=== PATIENT | female | born 1965 | race Two or more races ===

== ENCOUNTER 2019-08-02 11:30 | Emergency (ER) | payer SELFPAY ==
[2019-08-02 11:31] VITALS: BP 172/84; PULSE 84; RESP 16; TEMP 36.6; O2SAT 98; BMI 30.9
--- NOTE | 2019-08-02 11:39 | XRR_ITS ---
PROCEDURE INFORMATION: Exam: XR Left Wrist Exam date and time: 08/02/2019 12:21 PM Age: 54 years old Clinical indication: Injury or trauma; Fall; Initial encounter; Blunt trauma (contusions or hematomas; Wrist; Bilateral; Injury date: 08/02/19; Additional info: Fall, bilat wrist pain TECHNIQUE: Imaging protocol: XR Left wrist. Views: 3 or more views. COMPARISON: No relevant prior studies available. FINDINGS: Bones/joints: Unremarkable negative for acute abnormality Soft tissues: Normal. XR/XR wrist LT min 3V* [id number] IMPRESSION: No acute findings.
--- NOTE | 2019-08-02 11:39 | XRR_ITS ---
PROCEDURE INFORMATION: Exam: XR Right Wrist Exam date and time: 08/02/2019 12:19 PM Age: 54 years old Clinical indication: Injury or trauma; Fall; Initial encounter; Blunt trauma (contusions or hematomas; Wrist; Bilateral; Injury date: 08/02/19; Additional info: Fall bilat wrist pain TECHNIQUE: Imaging protocol: XR Right wrist. Views: 3 or more views. COMPARISON: No relevant prior studies available. FINDINGS: Bones/joints: Negative for acute bony abnormality Soft tissues: Normal. XR/XR wrist RT min 3V* [id number] IMPRESSION: No acute findings.
[2019-08-02 15:21] VITALS: BP 147/77; PULSE 74; O2SAT 100
--- NOTE | 2019-08-03 07:15 | W.ED.EXTPRO ---
HPI - Extremity Problem General: Chief complaint: Extremity Injury, Upper Stated complaint: fell hurt both wrists Time Seen by Provider: 08/02/19 14:26 Source: patient and family Mode of arrival: ambulatory Limitations: no limitations History of Present Illness: HPI Narrative: Patient is a 54-year-old female who presents to ED today with complaints of bilateral wrist pain; patient and significant other state that patient had been having some bilateral wrist pain over the past few days/weeks due to them recently moving into a new home and remodeling doing a lot of painting; patient states the other day she tripped and fell and landed on her arms extended and since then has had increased pain to her bilateral wrists MD Complaint: joint paint Onset (ago): day(s) Pain Consistency: constant Location: left and right Radiation: none Relieving factors: immobilization Exacerbating factors: range of motion Associated symptoms: Reports no associated symptoms Review of Systems Musc: Reports: joint pain (bilateral wrists); Denies: neck pain or back pain PFSH ED PFSH: Statuses (acute, chronic, etc) shown below reflect problem list status as previously entered and may not be historically accurate Social History Smoking and tobacco status: former smoker Physical Exam Const: COMMON NORMALS: no apparent distress, average body habitus, oriented x3, healthy appearing, alert and well nourished Extremity: OTHER: TTP of bilateral wrists; can flex/ext/deviate but with pain; NV intact; no deformities noted; no tenderness to hands/forearms Neuro: COMMON NORMALS: oriented x3, no focal motor deficits and no sensory deficits noted SENSORIUM/ORIENTATION: Yes alert Course Vital Signs: Vital signs: Vital Signs Temperature 97.9 F 08/02/19 11:31 Pulse Rate 74 08/02/19 15:21 Respiratory Rate 16 08/02/19 11:31 Blood Pressure 147/77 08/02/19 15:21 Pulse Oximetry 100 08/02/19 15:21 MDM - Extremity (Nontraumatic) Imaging Data^: R wrist : Radiologist's impression: [address] [address] XRay Report Signed Patient: Soco Carpenter Unit #: [id number] : 1965 Age/Sex: 54 / F ADM Date: 08/02/19 Loc: ER Room/Bed: Attending Dr: Ordering Provider/Ordering MD: Emiliano Welsh DO Date of Service: 08/02/19 Procedure(s): XR wrist RT min 3V* [id number] Accession Number(s): [id number] Report Number: [id number] PROCEDURE INFORMATION: Exam: XR Right Wrist Exam date and time: 08/02/2019 12:19 PM Age: 54 years old Clinical indication: Injury or trauma; Fall; Initial encounter; Blunt trauma (contusions or hematomas; Wrist; Bilateral; Injury date: 08/02/19; Additional info: Fall bilat wrist pain TECHNIQUE: Imaging protocol: XR Right wrist. Views: 3 or more views. COMPARISON: No relevant prior studies available. FINDINGS: Bones/joints: Negative for acute bony abnormality Soft tissues: Normal. XR/XR wrist RT min 3V* [id number] IMPRESSION: No acute findings. Dictated By: Brendon Lee Signed By: Brendon Lee Signed Date/Time: 08/02/19 1312 DD/ 1312 L wrist: Radiologist's impression: [place] [address] XRay Report Signed Patient: Soco Carpenter Unit #: [id number] : 1965 Age/Sex: 54 / F ADM Date: 08/02/19 Loc: ER Room/Bed: Attending Dr: Ordering Provider/Ordering MD: Emiliano Welsh DO Date of Service: 08/02/19 Procedure(s): XR wrist LT min 3V* 18547 Accession Number(s): [id number] Report Number: [id number] PROCEDURE INFORMATION: Exam: XR Left Wrist Exam date and time: 08/02/2019 12:21 PM Age: 54 years old Clinical indication: Injury or trauma; Fall; Initial encounter; Blunt trauma (contusions or hematomas; Wrist; Bilateral; Injury date: 08/02/19; Additional info: Fall, bilat wrist pain TECHNIQUE: Imaging protocol: XR Left wrist. Views: 3 or more views. COMPARISON: No relevant prior studies available. FINDINGS: Bones/joints: Unremarkable negative for acute abnormality Soft tissues: Normal. XR/XR wrist LT min 3V* [id number] IMPRESSION: No acute findings. Dictated By: Brendon Lee Signed By: Brendon Lee Signed Date/Time: 08/02/193 DD/ 131 Discharge Plan Discharge Patient Disposition: Home, Self-Care Clinical Impression: Sprain and strain of wrist Condition: Stable Prescriptions: New ibuprofen 600 mg tablet 600 mg PO Q8H PRN (Reason: pain) Qty: 20 RF: 0 Discharge Orders: Discharge Order (Routine); Ordered 08/02/19 Ordered By: Leonila Plasencia Discharge Activity: Increase activity as tolerated Activity Restrictions/Additional Instructions: Follow up with primary care in 1 wk for continued pain. Discharge Date/Time: 08/02/19 15:23 Coding Level of Care Code ED Air Brush Decorator for Lexi Vazquez Exam Problem Focused
== END 2019-08-02 15:23 | disposition home or self-care (01) ==
LOC: ER 15:16
PROVIDERS: Emergency Provider Physician Assistant
DX: S63.509A Unspecified sprain of unspecified wrist, initial encounter (principal); S66.919A Strain of unspecified muscle, fascia and tendon at wrist and hand level, unspecified hand, initial encounter; W01.0XXA Fall on same level from slipping, tripping and stumbling without subsequent striking against object, initial encounter; Z87.891 Personal history of nicotine dependence
CPT/HCPCS: 73110; 99281; 99283

== ENCOUNTER 2020-01-07 09:40 | Inpatient (IN) | payer SELFPAY ==
[2020-01-07] VITALS (8 sets, daily range): BP systolic 144–171; BP diastolic 75–97; PULSE 71–103; RESP 16–22; TEMP 36.6–37.3; O2SAT 95–98; BMI 28.9
--- NOTE | 2020-01-07 10:03 | USR_ITS ---
PROCEDURE INFORMATION: Exam: US Abdomen Limited, Right Upper Quadrant Exam date and time: 01/07/2020 10:53 AM Age: 54 years old Clinical indication: Abdominal pain; Epigastric; Additional info: Abd pain TECHNIQUE: Imaging protocol: Real-time ultrasound of the abdomen with image documentation. Examination was focused on the right upper quadrant. COMPARISON: CT abdomen pelvis w con* [id number] 01/07/2020 10:20 AM FINDINGS: Liver: Diffuse fatty infiltration of the liver. Gallbladder: No cholelithiasis, gallbladder wall edema, or pericholecystic fluid. An equivocal Callaway sign was reported by the scanning technologist. Common bile duct: Normal caliber of the visualized common bile duct measuring 2 mm in diameter. Pancreas: Obscuration of the pancreas by bowel gas. Right kidney: Normal renal morphology. No hydronephrosis. US/US gall bladder [id number] IMPRESSION: Diffuse fatty infiltration of the liver.
--- NOTE | 2020-01-07 10:03 | CTR_ITS ---
PROCEDURE INFORMATION: Exam: CT Abdomen And Pelvis With Contrast Exam date and time: 01/07/2020 10:13 AM Age: 54 years old Clinical indication: Abdominal pain; Additional info: Abd pain TECHNIQUE: Imaging protocol: Computed tomography of the abdomen and pelvis with intravenous contrast. Radiation optimization: All CT scans at this facility use at least one of these dose optimization techniques: automated exposure control; mA and/or kV adjustment per patient size (includes targeted exams where dose is matched to clinical indication); or iterative reconstruction. Contrast material: OMNI 300; Contrast volume: 95 ml; Contrast route: INTRAVENOUS (IV); COMPARISON: No relevant prior studies available. FINDINGS: Pleural space: Interstitial prominence without acute airspace or pleural disease. Liver: Fatty infiltration of the liver. Gallbladder and bile ducts: No cholelithiasis or biliary ductal dilatation. Pancreas: Subtle infiltration of peripancreatic fat, suggesting pancreatitis. Correlation with pancreatic enzymes is recommended. No pancreatic ductal dilatation. Spleen: No splenomegaly. 8 mm accessory spleen. Adrenals: Unremarkable adrenals. Kidneys and ureters: Normal renal morphology. No hydronephrosis. Stomach and bowel: Mild gastric and jejunal wall thickening, consistent with gastroenteritis in the appropriate clinical setting. Prominent stool and diverticula. No pericolonic inflammation. Appendix: No acute appendicitis. Intraperitoneal space: No significant free fluid. Vasculature: Vascular calcification and atherosclerotic plaque. Normal caliber of the abdominal aorta. Lymph nodes: Subcentimeter lymph nodes. Bladder: Nondistended bladder. Reproductive: Unremarkable as visualized. Bones/joints: Mild degenerative change and disc bulging. Soft tissues: Calcification at the gluteal muscle attachment sites. CT/CT abdomen pelvis w con* [id number] IMPRESSION: 1. Subtle infiltration of peripancreatic fat, suggesting pancreatitis. Correlation with pancreatic enzymes is recommended. 2. Mild gastric and jejunal wall thickening, consistent with gastroenteritis in the appropriate clinical setting. 3. Additional findings as described above. Radiation Dose CTDIVOL = (mGy): DLP = 1096.83 (mGy-cm)
[2020-01-07 10:13] LABS: Basophils # 0.1 10^3/uL (0.0-0.1); Basophils % 0.4 %; Eosinophils # 0.1 10^3/uL (0.0-0.8); Eosinophils % 0.8 %; Hematocrit 47.7 % (37.0-47.0); Hemoglobin 15.9 g/dL (11.5-15.3); Lymphocytes # 4.7 10^3/uL (0.8-4.8); Lymphocytes % 29.8 %; Mean Corpuscular HGB Conc 33.3 g/dL (30.0-36.0); Mean Corpuscular Hemoglobin 28.8 pg (28.0-34.0); Mean Corpuscular Volume 86.3 fL (81-99); Mean Platelet Volume 9.2 fL (7.4-10.4); Monocytes % 6.1 %; Neutrophils # 9.9 10^3/uL (1.8-7.7); Neutrophils % 62.6 %; Nucleated Red Blood Cells % 0 %; Platelet Count 499 10^3/cmm (130-400); Red Blood Count 5.53 10^6/uL (4.1-5.3); Red Cell Distribution Width 12.7 % (12.1-15.1); White Blood Count 15.9 10^3/uL (4.0-10.0)
[2020-01-07] MEDS: iohexol 300 mg/mL 100 mL Btl 95 ML IV (10:28)
[2020-01-07 10:33] LABS: Alanine Aminotransferase 15 U/L (0-33); Albumin Level 4.9 g/dL (3.5-5.2); Alkaline Phosphatase 105 IU/L (35-105); Anion Gap 20.3 (5-19); Aspartate Amino Transferase 16 U/L (0-32); Blood Urea Nitrogen 12 mg/dL (6-20); Calcium 9.9 mg/dL (8.5-10.5); Carbon Dioxide 23 mmol/L (22-29); Chloride 94 mmol/L (98-107); Globulin 3.4 g/dL (1.3-4.6); Glomerular Filtration Rate 128.6 mL/min (90-130); Glucose 201 mg/dL (65-115); Osmolality Calculated 278 mOsm/kg (285-295); Potassium 4.3 mmol/L (3.5-5.1); Sodium 133 mmol/L (136-145); Total Bilirubin 1.4 mg/dL (0.15-1.2); Total Protein 8.3 g/dL (6.6-8.7)
[2020-01-07 10:36] LABS: Lactate (Lactic Acid level) 1.6 mmol/L (0.5-2.2)
--- NOTE | 2020-01-07 11:03 | W.ED.ABDPA2 ---
HPI - Abdominal Pain General: Chief Complaint: Abdominal Pain Stated Complaint: ABD PAIN Time Seen by Provider: 01/07/20 09:51 History of Present Illness: HPI narrative: Right upper quadrant abdominal pain started last night. Patient is very anxious because her brother had recently had that have gallbladder surgery. Patient has nausea with one episode of vomiting. No diarrhea or fevers reported. MD elicited complaint: abdominal pain Pertinent past history: none Onset (ago): day(s) Pain Consistency: constant Location: RUQ Severity: severe Quality: cramping, stabbing, aching and sharp Radiation: none Relieving factors: nothing PFSH ED PFSH: Social History Smoking and tobacco status: never smoked Course Vital Signs: Vital signs: Vital Signs Temperature 98.3 F 01/07/20 09:56 Pulse Rate 103 H 01/07/20 09:56 Respiratory Rate 22 H 01/07/20 09:56 Blood Pressure 171/97 01/07/20 09:56 Pulse Oximetry 95 01/07/20 09:56 MDM - Abdominal Pain Lab Data: Labs: Lab Results 01/07/20 01/07/20 01/07/20 Range/Units 10:07 10:07 10:07 WBC 15.9 H (4.0-10.0) 10^3/ uL RBC 5.53 H (4.1-5.3) 10^6/u L Hgb 15.9 H (11.5-15.3) g/dL Hct 47.7 H (37.0-47.0) % MCV 86.3 (81-99) fL MCH 28.8 (28.0-34.0) pg MCHC 33.3 (30.0-36.0) g/dL RDW 12.7 (12.1-15.1) % Plt Count 499 H (130-400) 10^3/c mm MPV 9.2 (7.4-10.4) fL Neut % (Auto) 62.6 % Lymph % (Auto) 29.8 % [place] % (Auto) 6.1 % Eos % (Auto) 0.8 % Baso % (Auto) 0.4 % Neut # (Auto) 9.9 H (1.8-7.7) 10^3/u L Lymph # (Auto) 4.7 (0.8-4.8) 10^3/u L [place] # (Auto) 1.0 H (0.2-0.9) 10^3/u L Eos # (Auto) 0.1 (0.0-0.8) 10^3/u L Baso # (Auto) 0.1 (0.0-0.1) 10^3/u L Nucleated RBC % (a uto) 0 % Nucleated RBCs # 0.0 /100WBC Sodium 133 L (136-145) mmol/L Potassium 4.3 (3.5-5.1) mmol/L Chloride 94 L (98-107) mmol/L Carbon Dioxide 23 (22-29) mmol/L Anion Gap 20.3 H (5-19) BUN 12 (6-20) mg/dL Creatinine 0.5 (0.5-0.9) mg/dL GFR Calculation 128.6 (90-130) mL/min Glucose 201 H (65-115) mg/dL Calculated Osmolal ity 278 L (285-295) mOsm/k g Lactate (0.5-2.2) mmol/L Calcium 9.9 (8.5-10.5) mg/dL Total Bilirubin 1.4 H (0.15-1.2) mg/dL AST 16 (0-32) U/L ALT 15 (0-33) U/L Alkaline Phosphata se 105 (35-105) IU/L Total Protein 8.3 (6.6-8.7) g/dL Albumin 4.9 (3.5-5.2) g/dL Globulin 3.4 (1.3-4.6) g/dL Triglycerides 151 H (0-150) mg/dL Lipase 361 H (13-60) U/L Urine Color (Yellow) Urine Appearance (CLEAR) Urine pH (5-7) Ur Specific Gravit y (1.005-1.030) Urine Protein (Negative) Urine Glucose (UA) (Normal) Urine Ketones (Negative) Urine Blood (Negative) Urine Nitrate (Negative) Urine Bilirubin (NEGATIVE) Urine Urobilinogen (Negative) mg/dL Ur Leukocyte Rosibel ase (Negative) Urine RBC (0-2) /hpf Urine WBC (0-5) /hpf Ur Squamous Epith Cells (0-5) Urine Bacteria (NONE) Urine Mucus 06/21/20 06/21/20 Range/Units 10:08 10:15 WBC (4.0-10.0) 10^3/ uL RBC (4.1-5.3) 10^6/u L Hgb (11.5-15.3) g/dL Hct (37.0-47.0) % MCV (81-99) fL MCH (28.0-34.0) pg MCHC (30.0-36.0) g/dL RDW (12.1-15.1) % Plt Count (130-400) 10^3/c mm MPV (7.4-10.4) fL Neut % (Auto) % Lymph % (Auto) % [place] % (Auto) % Eos % (Auto) % Baso % (Auto) % Neut # (Auto) (1.8-7.7) 10^3/u L Lymph # (Auto) (0.8-4.8) 10^3/u L [place] # (Auto) (0.2-0.9) 10^3/u L Eos # (Auto) (0.0-0.8) 10^3/u L Baso # (Auto) (0.0-0.1) 10^3/u L Nucleated RBC % (a uto) % Nucleated RBCs # /100WBC Sodium (136-145) mmol/L Potassium (3.5-5.1) mmol/L Chloride (98-107) mmol/L Carbon Dioxide (22-29) mmol/L Anion Gap (5-19) BUN (6-20) mg/dL Creatinine (0.5-0.9) mg/dL GFR Calculation (90-130) mL/min Glucose (65-115) mg/dL Calculated Osmolal ity (285-295) mOsm/k g Lactate 1.6 (0.5-2.2) mmol/L Calcium (8.5-10.5) mg/dL Total Bilirubin (0.15-1.2) mg/dL AST (0-32) U/L ALT (0-33) U/L Alkaline Phosphata se (35-105) IU/L Total Protein (6.6-8.7) g/dL Albumin (3.5-5.2) g/dL Globulin (1.3-4.6) g/dL Triglycerides (0-150) mg/dL Lipase (13-60) U/L Urine Color Dark yellow (Yellow) Urine Appearance Clear (CLEAR) Urine pH 5 (5-7) Ur Specific Gravit y 1.025 (1.005-1.030) Urine Protein Trace (Negative) Urine Glucose (UA) Trace H (Normal) Urine Ketones 1+ H (Negative) Urine Blood Neg (Negative) Urine Nitrate Negative (Negative) Urine Bilirubin 1+ H (NEGATIVE) Urine Urobilinogen 4 H (Negative) mg/dL Ur Leukocyte Rosibel ase Trace H (Negative) Urine RBC None (0-2) /hpf Urine WBC 5-10 H (0-5) /hpf Ur Squamous Epith Cells 0-4 H (0-5) Urine Bacteria Trace (NONE) Urine Mucus Trace Discharge Plan Discharge Prescriptions: No Action Multiple Vitamin, Womens Tablet 1 tab PO DAILY RF: 0 glipizide See Rx Instructions .ROUTE .COMPLEX RF: 0 metformin See Rx Instructions .ROUTE .COMPLEX RF: 0 Coding Level of Care Code ED Business Analyst Consultant for Lexi Vazquez
[2020-01-07 11:04] LABS: Lipase 361 U/L (13-60)
[2020-01-07 11:07] LABS: Add Urine Microscopic? YES; Bilirubin Urine 1+ (NEGATIVE); Blood Urine Neg (Negative); Glucose Urine UA Trace (Normal); Ketones Urine 1+ (Negative); Leukocyte Esterase Urine Trace (Negative); Nitrate Urine Negative (Negative); Protein Urine Trace (Negative); Specific Gravity, Urine 1.025 (1.005-1.030); Urine Appearance Clear (CLEAR); Urine Color Dark Yellow (Yellow); Urobilinogen Urine 4 mg/dL (Negative); pH Urine 5 (5-7)
[2020-01-07 11:08] LABS: Add Urine Culture? No; Bacteria Urine TRACE; Mucus Urine TRACE; Squamous Epithelial Cell Urine 0-4 (0-5)
--- NOTE | 2020-01-07 11:28 | PC.NURSE ---
REad and agree with assessment
[2020-01-07] MEDS: LORazepam 1 mg Tablet PO (11:56)
[2020-01-07 12:15] LABS: Triglycerides 151 mg/dL (0-150)
[2020-01-07] MEDS: morphine 4 mg/mL SDV 1 mL 2 MG IVP ×2 (13:57→20:15)
[2020-01-07] MEDS: sodium chloride 0.9% 1,000 ML 150 ML IV ×2 (13:58→21:02)
--- NOTE | 2020-01-07 14:24 | P.HP_ITS ---
Providers/Chief Complaint Admitting Physician: Anita Matta MD Chief Complaint: ABD PAIN History of Present Illness Soco Carpenter is a 54 year old female complaining of abdominal pain. Patient states she was in her usual state of health until Wednesday morning when she started to experience epigastric abdominal pain. She does not remember any inciting cause just prior. States pain was 10 out of 10, then somewhat relieved with massage and application of hot packs on her abdomen. She initially attributed this to musculoskeletal pain that she developed from raking leaves earlier that morning. However over the course of Wednesday and now she developed intense nausea and had one episode of vomiting. She held off on coming because she thought it was something she ate that may have precipitated her symptoms, however as of this morning the intensity and frequency got much worse and she decided to present to the ER for further evaluation. In the ER diagnostics are notable for leukocytosis with white blood cell count of 15.9. BUN/creatinine within range, T bili of 1.4 with normal AST ALT alkaline phosphatase. Lipase is at 361. Triglycerides 151. Abdomen pelvis CT shows subtle infiltration of peripancreatic fat suggestive of pancreatitis. There is mild gastric and jejunal wall thickening consistent with leidy roenteritis. No cholelithiasis or biliary duct dilatation are seen. There is noted to be fatty infiltration of the liver. There is also prominent stool in the diverticula without pericolonic inflammation. Patient does report constipation starting Wednesday, no history of diarrheal bowel movements. Gallbladder ultrasound additionally performed in the ER is negative for cholelithiasis GB wall edema or pericholecystic fluid. Diffuse fatty infiltration of the liver was noted. Per patient her other recent history is notable for a poison jaime rash that she developed about a month ago and reports being on an extended course of antibiotics for cellulitis involving bilateral arms. She is unable to tell me what antibiotic this was. We will try to obtain this information from her pharmacy or PCPs office tomorrow. As a result of antibiotics she developed Elisa infection in her groin folds and underneath the breasts for which she was on nystatin powder. This has now cleared up. Other past history is notable for diabetes mellitus for which she has been taking metformin and glipizide over the past month, newly started. She does not know her last HbA1c. She reports multiple episodes of elevated blood pressure during her doctor's visit which he attributes to white coat hypertension. At home she states her blood pressure is usually normal less than 140 systolic. No h/o cardiac disease There is no complaint of fever. No h/o alcohol intake. No herbal supplements Review of Systems General: Reports: 10 or more systems reviewed and unremarkable except in HPI and below Const: Denies: fever(s), chills or body aches Eyes: Denies: change in vision, blurry vision or photophobia ENMT: Denies: throat pain, enlarged tonsils, odynophagia, hoarseness or nasal congestion Card: Denies: chest pain, palpitations, irregular heart rhythm, edema, swelling of feet/ankles, lightheadedness, pre-syncope, dyspnea on exertion or orthopnea Resp: Denies: dyspnea, productive cough, non-productive cough, wheezing, stridor, pain on inspiration, change in phlegm color, hemoptysis or chest congestion GI: Reports: abdominal pain, nausea, vomiting and constipation; Denies: hematemesis, coffee ground emesis, dysphagia, heartburn, diarrhea, GI cramping, change in stool character, hematochezia or melena : Denies: flank pain, difficulty voiding, dysuria, urinary frequency, urinary urgency, urinary hesitancy or hematuria Musc: Denies: neck pain, back pain, extremity pain, joint swelling, joint warmth or deformity Neuro: Denies: headache(s), numbness in extremities, weakness in extremities, sensory changes, difficulty walking, frequent falls, dizziness, vertigo, behavioral changes, Slurred speech present or seizure-like activity Psych: Denies: anxiety, depression, suicidal ideation or homicidal ideation Endo: Denies: polyuria, polydipsia, tired all the time, cold intolerance or hot flashes Antwon/Lymph: Denies: easy bruising or easy bleeding Medications/Allergies Home Medications Medication Instructions Recorded Confirmed Last Taken Type glipizide See Rx Instructions .ROUTE .COMPLEX 01/07/20 01/07/20 01/05/20 History metformin See Rx Instructions .ROUTE .COMPLEX 01/07/20 01/07/20 01/05/20 History wipectxxnlrb-Cn-jywm-minerals 1 tab PO DAILY 01/07/20 01/07/20 01/05/20 History [Multiple Vitamin, Womens] Allergies Allergy/AdvReac Type Severity Reaction Status Date / Time adhesive tape Allergy ALGY-Rash Verified 01/07/20 10:59 PFSH Acute PFSH: Medical History (Updated 01/07/20 @ 14:35 by Anita Matta MD) Cellulitis Diabetes mellitus Poison jaime dermatitis Social History Smoking and tobacco status: never smoked Vitals/I&O/Wt Last Vital Signs Temp 98.3 F 01/07/20 09:56 Pulse 80 01/07/20 13:05 Resp 18 01/07/20 13:57 BP 154/75 01/07/20 13:05 Pulse Ox 98 01/07/20 13:05 Weight last 48 hrs Weight 71.668 kg Physical Exam Narrative: EXAM NARRATIVE: GEN: Awake, alert and oriented, no acute distress HEENT: NC/AT CVS: S1S2 N RS: CTA B/L Abd: Soft, nondistended, mild tenderness to palpation in the epigastric and right upper quadrant areas. No rebound or guarding. METER SUPERVISOR: no focal neuro deficits Extremities: Hyperkeratotic skin changes in bilateral groin folds and underneath the breast consistent with recently treated intertrigo. Data : 01/07/20 10:07 01/07/20 10:07 A&P Assessment and plan (1) Acute pancreatitis: Status: Acute Qualifiers: Pancreatitis type: idiopathic Acute pancreatitis complication: no infection or necrosis Qualified Code(s): K85.00 - Idiopathic acute pancreatitis without necrosis or infection (2) Diabetes mellitus: Status: Acute Qualifiers: Diabetes mellitus type: type 2 Diabetes mellitus primer powder blender wet insulin use: without primer powder blender wet use Diabetes mellitus complication status: without complication Qualified Code(s): E11.9 - Type 2 diabetes mellitus without complications (3) Leukocytosis: Status: Acute Qualifiers: Leukocytosis type: unspecified Qualified Code(s): D72.829 - Elevated white blood cell count, unspecified (4) Dehydration: Status: Acute Additional A&P Information Admit to [facility]. 1. Acute pancreatitis. Pancreatitis as evidenced by CT findings of peripancreatic fat inflammation with possible reactive duodenitis and gastritis. Lipase elevated at 361. Cause of pancreatitis not entirely clear. Right upper quadrant ultrasound and CT did not detect any cholelithiasis or biliary dilatation. LFTs are normal except for mildly elevated T bili of 1.4. Triglycerides are within normal limits at 151. Calcium levels are also within normal range, albeit on the higher side. Will check TSH. Will obtain records from her PCP or pharmacy to check what antibiotic she received recently. Pancreatic necrosis not on recent CT. Leukocytosis noted. Suspect that this is related to dehydration, likely to improve with volume expansion. For now given that patient is afebrile we will hold off on any empiric antibiotics. We will however check blood cultures. In case of any fevers will start broad-spectrum antibiotics. Continue IV fluids at 150 cc/h. PRN morphine for pain control Clear liquid diet for now 2. Diabetes mellitus: Currently on insulin sliding scale. 3. Recent posion jaime dermatitis, currently resolved DVT prophylaxis with Lovenox Full code Attestations Medical Necessity Statement*: Needs inpatient admission, anticipate greater than 2 days for management of acute pancreatitis, IV hydration, pain management Coding Level of Care Code Acute Maintainability Engineer for [facility] Diagnoses Acute pancreatitis K85.00 Pancreatitis type: idiopathic Acute pancreatitis complication: no infection or necrosis Diabetes mellitus E11.9 Diabetes mellitus type: type 2 Diabetes mellitus long-term insulin use: without long-term use Diabetes mellitus complication status: without complication Leukocytosis D72.829 Leukocytosis type: unspecified Dehydration E86.0
[2020-01-07] MEDS: ketorolac 30 mg/mL INJ 15 MG IVP ×2 (16:03→23:53)
[2020-01-07] MEDS: enoxaparin 40 mg/0.4 mL Syringe SUBCUT (16:04)
[2020-01-07 17:48] LABS: Glucose Point of Care 202 mg/dL (70-110)
[2020-01-07 20:39] LABS: Glucose Point of Care 197 mg/dL (70-110)
[2020-01-08] VITALS (9 sets, daily range): BP systolic 111–168; BP diastolic 68–84; PULSE 68–81; RESP 16–18; TEMP 36.4–37.1; O2SAT 94–98
[2020-01-08] MEDS: morphine 4 mg/mL SDV 1 mL 2 MG IVP ×4 (00:26→19:54)
[2020-01-08] MEDS: sodium chloride 0.9% 1,000 ML 150 ML IV ×3 (03:34→19:49)
[2020-01-08] MEDS: trazodone 50 mg Tablet PO (04:05)
[2020-01-08 04:54] LABS: Estmated Average Glucose 278; Hemoglobin A1C 11.3 % (4.0-6.0)
[2020-01-08 05:34] LABS: Alanine Aminotransferase 12 U/L (0-33); Albumin Level 3.8 g/dL (3.5-5.2); Alkaline Phosphatase 85 IU/L (35-105); Anion Gap 15.8 (5-19); Aspartate Amino Transferase 14 U/L (0-32); Blood Urea Nitrogen 11 mg/dL (6-20); Calcium 8.8 mg/dL (8.5-10.5); Carbon Dioxide 23 mmol/L (22-29); Chloride 105 mmol/L (98-107); Globulin 2.6 g/dL (1.3-4.6); Glomerular Filtration Rate 128.6 mL/min (90-130); Glucose 157 mg/dL (65-115); Magnesium 1.9 mg/dL (1.7-2.3); Osmolality Calculated 287 mOsm/kg (285-295); Potassium 4.8 mmol/L (3.5-5.1); Sodium 139 mmol/L (136-145); Total Bilirubin 0.9 mg/dL (0.15-1.2); Total Protein 6.4 g/dL (6.6-8.7)
[2020-01-08 05:44] LABS: Thyroid Stimulating Hormone 4.68 uIU/mL (0.27-4.20)
[2020-01-08 06:56] LABS: Glucose Point of Care 152 mg/dL (70-110)
[2020-01-08 07:24] LABS: Basophils # 0.1 10^3/uL (0.0-0.1); Basophils % 0.5 %; Eosinophils # 0.2 10^3/uL (0.0-0.8); Eosinophils % 1.8 %; Hematocrit 41.2 % (37.0-47.0); Hemoglobin 13.5 g/dL (11.5-15.3); Lymphocytes # 4.3 10^3/uL (0.8-4.8); Lymphocytes % 32.8 %; Mean Corpuscular HGB Conc 32.8 g/dL (30.0-36.0); Mean Corpuscular Hemoglobin 28.5 pg (28.0-34.0); Mean Corpuscular Volume 86.9 fL (81-99); Mean Platelet Volume 9.8 fL (7.4-10.4); Monocytes % 7.7 %; Neutrophils # 7.5 10^3/uL (1.8-7.7); Nucleated Red Blood Cells % 0 %; Platelet Count 427 10^3/cmm (130-400); Red Blood Count 4.74 10^6/uL (4.1-5.3); Red Cell Distribution Width 12.7 % (12.1-15.1); White Blood Count 13.1 10^3/uL (4.0-10.0)
[2020-01-08] MEDS: ketorolac 30 mg/mL INJ 15 MG IVP ×2 (07:39→16:43)
[2020-01-08 11:40] LABS: Glucose Point of Care 223 mg/dL (70-110)
--- NOTE | 2020-01-08 13:13 | P.PN_ITS ---
Subjective Subjective: Interval history: This morning patient states that her abdominal pain is minimal, would like to try to eat something more substantial, she stated that she had a tough night was unable to sleep due to her roommate, currently doing well, afebrile, denies drinking alcohol use, no recent oral steroid use, was given topical steroids and fluconazole for poison jaime, and topical candidiasis, did have trauma to her abdomen when she fell through the floor which was roughly 2 weeks ago Vitals/I&O/Wt Last Vital Signs Temp 98.7 F 01/08/20 11:02 Pulse 70 01/08/20 11:02 Resp 16 01/08/20 11:02 BP 143/68 01/08/20 11:02 Pulse Ox 94 01/08/20 11:02 01/07/20 01/08/20 01/08/20 22:59 06:59 14:59 Intake Total 1360 / 1360 980 / 2340 1480 / 1480 Output Total 600 / 600 450 / 1050 Balance 760 / 760 530 / 1290 1480 / 1480 Weight last 48 hrs Weight 71.668 kg Physical Exam Const: COMMON NORMALS: no acute distress and patient oriented x3 HENMT: COMMON NORMALS: normocephalic HEAD & SCALP: normocephalic Neck/C-Spine: COMMON NORMALS: no JVD Resp: COMMON NORMALS: normal respiratory effort, No retractions, No use of accessory muscles and clear to auscultation bilaterally AUSCULTATION: clear to auscultation bilaterally Cardio: COMMON NORMALS: no JVD, regular rate, regular rhythm, S1 normal heart sound present and S2 normal heart sound present RATE: regular rate RHYTHM: regular rhythm HEART SOUNDS: S1 normal heart sound present and S2 normal hear t sound present GI: COMMON NORMALS: Normal to inspection, nondistended, normoactive bowel sounds present, Soft to palpation, non-tender, No hepatosplenomegaly present, no masses and no bruits PALPATION: Yes Soft to palpation and Yes No hepatosplenomegaly present Extremity: COMMON NORMALS: capillary refill normal, no clubbing, cyanosis or edema, no calf tenderness and no pedal edema Neuro: COMMON NORMALS: patient oriented x3 Psych: COMMON NORMALS: mental status grossly normal Data : 01/08/20 03:59 01/08/20 03:59 A&P Assessment and plan (1) Acute pancreatitis: Status: Acute Qualifiers: Pancreatitis type: idiopathic Acute pancreatitis complication: no infection or necrosis Qualified Code(s): K85.00 - Idiopathic acute pancreatitis without necrosis or infection (2) Diabetes mellitus: -Hemoglobin A1c 11.3, episodes of candidiasis, indicating poorly controlled type 2 diabetes mellitus -Continue home metformin and glipizide on discharge -She is insulin na?ve, insulin requirements for the last 24 hours have been 10 units -We will likely have patient follow-up with outpatient physician for starting insulin Status: Acute Qualifiers: Diabetes mellitus type: type 2 Diabetes mellitus [facility] use: without [facility] use Diabetes mellitus complication status: without complication Qualified Code(s): E11.9 - Type 2 diabetes mellitus without complications (3) Leukocytosis: Status: Acute Qualifiers: Leukocytosis type: unspecified Qualified Code(s): D72.829 - Elevated white blood cell count, unspecified (4) Dehydration: Status: Acute Additional A&P Information Admit to [facility]. 1. Acute pancreatitis. -Possibly related to trauma -No evidence of gallstones on ultrasound Pancreatitis as evidenced by CT findings of peripancreatic fat inflammation with possible reactive duodenitis and gastritis. Lipase elevated at 361. Cause of pancreatitis not entirely clear. Right upper quadrant ultrasound and CT did not detect any cholelithiasis or biliary dilatation. LFTs are normal except for mildly elevated T bili of 1.4. Triglycerides are within normal limits at 151. Calcium levels are also within normal range, albeit on the higher side. Pancreatic necrosis not on recent CT. Leukocytosis noted. Suspect that this is related to dehydration, likely to improve with volume expansion. For now given that patient is afebrile we will hold off on any empiric antibiotics. We will however check blood cultures. In case of any fevers will start broad-spectrum antibiotics. Continue IV fluids at 100 cc an hour, will try a GI soft diet Likely discharge 4 hours 2. Diabetes mellitus: Currently on insulin sliding scale. 3. 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
[2020-01-08 17:27] LABS: Glucose Point of Care 200 mg/dL (70-110); Glucose Point of Care 216 mg/dL (70-110)
[2020-01-08] MEDS: enoxaparin 40 mg/0.4 mL Syringe SUBCUT (17:52)
[2020-01-08 20:46] LABS: Glucose Point of Care 151 mg/dL (70-110)
[2020-01-09] VITALS (8 sets, daily range): BP systolic 126–172; BP diastolic 72–98; PULSE 59–82; RESP 16–20; TEMP 36.5–37.1; O2SAT 97–98
[2020-01-09] MEDS: morphine 4 mg/mL SDV 1 mL 2 MG IVP (00:28)
[2020-01-09] MEDS: sodium chloride 0.9% 1,000 ML 150 ML IV ×2 (01:50→09:10)
[2020-01-09] MEDS: acetaminophen 325 mg Tablet 650 MG PO (01:50)
[2020-01-09] MEDS: ketorolac 30 mg/mL INJ 15 MG IVP ×2 (04:40→21:27)
[2020-01-09 05:30] LABS: Basophils % 0.3 %; Eosinophils # 0.2 10^3/uL (0.0-0.8); Hematocrit 40.7 % (37.0-47.0); Hemoglobin 13.5 g/dL (11.5-15.3); Lymphocytes # 4.7 10^3/uL (0.8-4.8); Lymphocytes % 39.7 %; Mean Corpuscular HGB Conc 33.2 g/dL (30.0-36.0); Mean Corpuscular Hemoglobin 28.8 pg (28.0-34.0); Mean Corpuscular Volume 86.8 fL (81-99); Mean Platelet Volume 9.6 fL (7.4-10.4); Monocytes # 0.8 10^3/uL (0.2-0.9); Monocytes % 6.7 %; Nucleated Red Blood Cells % 0 %; Platelet Count 426 10^3/cmm (130-400); Red Blood Count 4.69 10^6/uL (4.1-5.3); Red Cell Distribution Width 12.4 % (12.1-15.1); White Blood Count 11.8 10^3/uL (4.0-10.0)
[2020-01-09 05:46] LABS: Lipase 172 U/L (13-60)
[2020-01-09 05:47] LABS: Alanine Aminotransferase 13 U/L (0-33); Albumin Level 3.8 g/dL (3.5-5.2); Alkaline Phosphatase 91 IU/L (35-105); Anion Gap 14.8 (5-19); Aspartate Amino Transferase 15 U/L (0-32); Blood Urea Nitrogen 6 mg/dL (6-20); Calcium 8.7 mg/dL (8.5-10.5); Carbon Dioxide 25 mmol/L (22-29); Chloride 101 mmol/L (98-107); Creatinine Clr Calc Pharmacy 149.0611; Globulin 3.4 g/dL (1.3-4.6); Glomerular Filtration Rate 166.3 mL/min (90-130); Glucose 146 mg/dL (65-115); Magnesium 1.9 mg/dL (1.7-2.3); Osmolality Calculated 282 mOsm/kg (285-295); Potassium 3.8 mmol/L (3.5-5.1); Sodium 137 mmol/L (136-145); Total Bilirubin 0.5 mg/dL (0.15-1.2); Total Protein 7.2 g/dL (6.6-8.7)
[2020-01-09 06:16] LABS: Glucose Point of Care 144 mg/dL (70-110)
[2020-01-09 11:46] LABS: Glucose Point of Care 122 mg/dL (70-110)
--- NOTE | 2020-01-09 12:25 | P.PN_ITS ---
Subjective Subjective: Interval history: Yesterday afternoon after having a GI soft diet, patient had recurrence of severe abdominal pain, kept n.p.o. for the next 12 hours, this morning abdominal pain is minimal, has not had a bowel movement, would like to try something this morning, no fevers, no chills, has not passed gas, afebrile Vitals/I&O/Wt Last Vital Signs Temp 98.2 F 01/09/20 11:32 Pulse 72 01/09/20 11:32 Resp 18 01/09/20 11:32 BP 144/74 01/09/20 11:32 Pulse Ox 98 01/09/20 11:32 01/08/20 01/09/20 01/09/20 22:59 06:59 14:59 Intake Total 1000 / 2480 902.5 / 3382.5 1360 / 1360 Output Total 1500 / 2300 1400 / 3700 Balance -500 / 180 -497.5 / -317.5 1360 / 1360 Physical Exam Const: COMMON NORMALS: no acute distress and patient oriented x3 HENMT: COMMON NORMALS: normocephalic HEAD & SCALP: normocephalic Neck/C-Spine: COMMON NORMALS: no JVD Resp: COMMON NORMALS: normal respiratory effort, No retractions, No use of accessory muscles and clear to auscultation bilaterally AUSCULTATION: clear to auscultation bilaterally Cardio: COMMON NORMALS: no JVD, regular rate, regular rhythm, S1 normal heart sound present and S2 normal heart sound present RATE: regular rate RHYTHM: regular rhythm HEART SOUNDS: S1 normal heart sound present and S2 normal heart sound present GI: COMMON NORMALS: Normal to inspection, nondistended, normoactive bowel sounds present, Soft to palpation, non-tender, No hepatosplenomegaly present, no masses and no bruits PALPATION: Yes Soft to palpation and Yes No hepatosplenomegaly present Extremity: COMMON NORMALS: capillary refill normal, no clubbing, cyanosis or edema, no calf tenderness and no pedal edema Neuro: COMMON NORMALS: patient oriented x3 Psych: COMMON NORMALS: mental status grossly normal Data : 01/09/20 04:26 01/09/20 04:26 A&P Assessment and plan (1) Acute pancreatitis: Status: Acute Qualifiers: Pancreatitis type: idiopathic Acute pancreatitis complication: no infection or necrosis Qualified Code(s): K85.00 - Idiopathic acute pancreatitis without necrosis or infection (2) Diabetes mellitus: -Hemoglobin A1c 11.3, episodes of candidiasis, indicating poorly controlled type 2 diabetes mellitus -Continue home metformin and glipizide on discharge -She is insulin na?ve, insulin requirements for the last 24 hours have been 10 units -We will likely have patient follow-up with outpatient physician for starting insulin Status: Acute Qualifiers: Diabetes mellitus type: type 2 Diabetes mellitus exterminator helper insulin use: without exterminator helper use Diabetes mellitus complication status: without complication Qualified Code(s): E11.9 - Type 2 diabetes mellitus without complications (3) Leukocytosis: Status: Acute Qualifiers: Leukocytosis type: unspecified Qualified Code(s): D72.829 - Elevated white blood cell count, unspecified (4) Dehydration: Status: Acute Additional A&P Information Admit to [facility] [place]. 1. Acute pancreatitis. -Possibly related to trauma -No evidence of gallstones on ultrasound Pancreatitis as evidenced by CT findings of peripancreatic fat inflammation with possible reactive duodenitis and gastritis. Lipase elevated at 361. Cause of pancreatitis not entirely clear. Right upper quadrant ultrasound and CT did not detect any cholelithiasis or biliary dilatation. LFTs are normal except for mildly elevated T bili of 1.4. Triglycerides are within normal limits at 151. Calcium levels are also within normal range, albeit on the higher side. Pancreatic necrosis not on recent CT. Leukocytosis noted. Suspect that this is related to dehydration, likely to improve with volume expansion. For now given that patient is afebrile we will hold off on any empiric antibiotics. In case of any fevers will start broad-spectrum antibiotics. Continue IV fluids at 100 cc an hour, try full liquid diet, see how patient does in the afternoon, try slow GI soft diet Likely discharge 24 hours 2. Diabetes mellitus: Currently on insulin sliding scale. 3. 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
[2020-01-09] MEDS: polyethylene glycol 3350 Pkt 17 gm PO (13:27)
[2020-01-09] MEDS: docusate sodium 100 mg Capsule PO ×2 (13:29→17:17)
[2020-01-09] MEDS: sodium chloride 0.9% 1,000 ML 100 ML IV (15:11)
--- NOTE | 2020-01-09 15:15 | PC.NURSE ---
patient tolerated full liquids with no complaints of nausea. Rcvd verbal order from Dr Enrique for GI soft diet. Cutter Inspector put order in for diet change.
[2020-01-09 16:46] LABS: Glucose Point of Care 134 mg/dL (70-110)
[2020-01-09] MEDS: enoxaparin 40 mg/0.4 mL Syringe SUBCUT (17:17)
[2020-01-09 20:57] LABS: Glucose Point of Care 201 mg/dL (70-110)
[2020-01-09] MEDS: nystatin powder 15 gm Btl 1 APPLIC TOPICAL (21:48)
[2020-01-10] MEDS: sodium chloride 0.9% 1,000 ML 100 ML IV (01:51)
[2020-01-10 03:20] VITALS: BP 158/84; PULSE 71; RESP 17; TEMP 36.6; O2SAT 98
--- NOTE | 2020-01-10 05:22 | PC.NURSE ---
Patient is refusing morning labs.
[2020-01-10 06:08] LABS: Basophils # 0.1 10^3/uL (0.0-0.1); Basophils % 0.6 %; Eosinophils # 0.2 10^3/uL (0.0-0.8); Eosinophils % 2.3 %; Hemoglobin 13.1 g/dL (11.5-15.3); Lymphocytes # 4.4 10^3/uL (0.8-4.8); Lymphocytes % 42.7 %; Mean Corpuscular HGB Conc 33.6 g/dL (30.0-36.0); Mean Corpuscular Hemoglobin 28.5 pg (28.0-34.0); Mean Corpuscular Volume 84.8 fL (81-99); Mean Platelet Volume 9.5 fL (7.4-10.4); Monocytes # 0.8 10^3/uL (0.2-0.9); Monocytes % 7.4 %; Neutrophils # 4.8 10^3/uL (1.8-7.7); Neutrophils % 46.8 %; Nucleated Red Blood Cells % 0 %; Platelet Count 410 10^3/cmm (130-400); Red Cell Distribution Width 12.4 % (12.1-15.1); White Blood Count 10.3 10^3/uL (4.0-10.0)
[2020-01-10 06:11] LABS: Glucose Point of Care 158 mg/dL (70-110)
[2020-01-10 06:19] LABS: Alanine Aminotransferase 17 U/L (0-33); Albumin Level 4.2 g/dL (3.5-5.2); Alkaline Phosphatase 86 IU/L (35-105); Anion Gap 13.9 (5-19); Aspartate Amino Transferase 17 U/L (0-32); Blood Urea Nitrogen 7 mg/dL (6-20); Calcium 9.2 mg/dL (8.5-10.5); Carbon Dioxide 26 mmol/L (22-29); Chloride 101 mmol/L (98-107); Globulin 2.7 g/dL (1.3-4.6); Glomerular Filtration Rate 128.6 mL/min (90-130); Glucose 153 mg/dL (65-115); Magnesium 1.8 mg/dL (1.7-2.3); Osmolality Calculated 283 mOsm/kg (285-295); Potassium 3.9 mmol/L (3.5-5.1); Sodium 137 mmol/L (136-145); Total Bilirubin 0.6 mg/dL (0.15-1.2); Total Protein 6.9 g/dL (6.6-8.7)
[2020-01-10 08:00] VITALS: BP 172/74; PULSE 61; RESP 18; TEMP 36.6; O2SAT 96
[2020-01-10] MEDS: docusate sodium 100 mg Capsule PO ×2 (08:10→18:11)
[2020-01-10] MEDS: polyethylene glycol 3350 Pkt 17 gm PO (08:10)
[2020-01-10 09:00] VITALS: BP 162/84; PULSE 73
[2020-01-10] MEDS: amlodipine 10 mg Tablet PO (10:11)
[2020-01-10 11:36] LABS: Glucose Point of Care 343 mg/dL (70-110)
[2020-01-10 11:43] VITALS: BP 173/94; PULSE 76; RESP 18; TEMP 37.3; O2SAT 96
[2020-01-10 12:03] LABS: Glucose Point of Care 291 mg/dL (70-110)
--- NOTE | 2020-01-10 13:43 | PM.DCS ---
Discharge Providers Date of Admission: 01/07/20 12:20 Date of Discharge: January 10, 2020 Attending Provider at Admission: Anita Matta MD Attending Provider at Discharge: Braeden Enrique MD Diagnoses at Discharge Discharge Diagnosis (1) Acute pancreatitis: Status: Acute Qualifiers: Pancreatitis type: idiopathic Acute pancreatitis complication: no infection or necrosis Qualified Code(s): K85.00 - Idiopathic acute pancreatitis without necrosis or infection (2) Diabetes mellitus: Status: Acute Qualifiers: Diabetes mellitus type: type 2 Diabetes mellitus telesales professional insulin use: without nursing home use Diabetes mellitus complication status: without complication Qualified Code(s): E11.9 - Type 2 diabetes mellitus without complications (3) Leukocytosis: Status: Acute Qualifiers: Leukocytosis type: unspecified Qualified Code(s): D72.829 - Elevated white blood cell count, unspecified (4) Dehydration: Status: Acute Reason for Visit Reason for Visit: ABD PAIN Hospital Course Discharge Summary: This is a 54-year-old female who presents [facility] due to complaints of abdominal pain Patient was admitted to [facility] for acute pancreatitis, received IV pain medications, IV fluids, managed on the general medical floors she had a slow clinical progress, but generally improved, remained afebrile. She was slowly advanced from a clear liquid to a GI soft diet, tolerated well, was discharged home with a close follow-up with primary care provider in 1 week. In terms of the etiology of acute pancreatitis, denies drinking alcohol, no recent history of steroid use, no gallstones she, she did have trauma to her abdomen 2 weeks prior which possibly could be a causative agent. Patient will likely require a outpatient MRCP and referral to software test engineer. For type 2 diabetes mellitus, poorly controlled, hemoglobin A1c 11.3, she had minimal insulin requirements during her hospital admission, likely insulin na?ve. I advised patient to check blood sugars 3 times daily, record blood sugars in a blood sugar log, and bring them to her primary care physician's office in 1 week for consideration for starting insulin. I have discharged her on glipizide metformin Patient was also found to be hypertensive during her hospital admission, I have discharged her on Norvasc, chlorthalidone. Patient is to follow-up with her primary care provider for blood pressure check. Physical Exam Const: COMMON NORMALS: no acute distress and patient oriented x3 HENMT: COMMON NORMALS: normocephalic HEAD & SCALP: normocephalic Neck/C-Spine: COMMON NORMALS: no JVD Resp: COMMON NORMALS: normal respiratory effort, No retractions, No use of accessory muscles and clear to auscultation bilaterally AUSCULTATION: clear to auscultation bilaterally Cardio: COMMON NORMALS: no JVD, regular rate, regular rhythm, S1 normal heart sound present and S2 normal heart sound present RATE: regular rate RHYTHM: regular rhythm HEART SOUNDS: S1 normal heart sound present and S2 normal heart sound present GI: COMMON NORMALS: Normal to inspection, nondistended, normoactive bowel sounds present, Soft to palpation, non-tender, No hepatosplenomegaly present, no masses and no bruits PALPATION: Yes Soft to palpation and Yes No hepatosplenomegaly present Extremity: COMMON NORMALS: capillary refill normal, no clubbing, cyanosis or edema, no calf tenderness and no pedal edema Neuro: COMMON NORMALS: patient oriented x3 Psych: COMMON NORMALS: mental status grossly normal Discharge Data Data Completed and Pending: Completed Studies During Hospitalization Category Date Time Status CT abdomen pelvis w con* [id number] Urge nt Cat Scan 01/07/20 10:03 Completed US gall bladder 7 [id number] Urgent Ultrasound 01/07/20 10:03 Completed Labs from last 24 hours 01/10/20 01/10/20 01/10/20 12:01 11:03 05:57 WBC RBC Hgb Hct MCV MCH MCHC RDW Plt Count MPV Neut % (Auto) Lymph % (Auto) Early % (Auto) Eos % (Auto) Baso % (Auto) Neut # (Auto) Lymph # (Auto) Early # (Auto) Eos # (Auto) Baso # (Auto) Nucleated RBC % (a uto) Nucleated RBCs # Sodium Potassium Chloride Carbon Dioxide Anion Gap BUN Creatinine GFR Calculation Glucose POC Glucose 291 343 158 Calculated Osmolal ity Calcium Magnesium Total Bilirubin AST ALT Alkaline Phosphata se Total Protein Albumin Globulin 01/10/20 01/10/20 01/09/20 05:46 05:46 20:53 WBC 10.3 H RBC 4.60 Hgb 13.1 Hct 39.0 MCV 84.8 MCH 28.5 MCHC 33.6 RDW 12.4 Plt Count 410 H MPV 9.5 Neut % (Auto) 46.8 Lymph % (Auto) 42.7 Early % (Auto) 7.4 Eos % (Auto) 2.3 Baso % (Auto) 0.6 Neut # (Auto) 4.8 Lymph # (Auto) 4.4 Early # (Auto) 0.8 Eos # (Auto) 0.2 Baso # (Auto) 0.1 Nucleated RBC % (a uto) 0 Nucleated RBCs # 0.0 Sodium 137 Potassium 3.9 Chloride 101 Carbon Dioxide 26 Anion Gap 13.9 BUN 7 Creatinine 0.5 GFR Calculation 128.6 Glucose 153 H POC Glucose 201 Calculated Osmolal ity 283 L Calcium 9.2 Magnesium 1.8 Total Bilirubin 0.6 AST 17 ALT 17 Alkaline Phosphata se 86 Total Protein 6.9 Albumin 4.2 Globulin 2.7 01/09/20 16:35 WBC RBC Hgb Hct MCV MCH MCHC RDW Plt Count MPV Neut % (Auto) Lymph % (Auto) Early % (Auto) Eos % (Auto) Baso % (Auto) Neut # (Auto) Lymph # (Auto) Early # (Auto) Eos # (Auto) Baso # (Auto) Nucleated RBC % (a uto) Nucleated RBCs # Sodium Potassium Chloride Carbon Dioxide Anion Gap BUN Creatinine GFR Calculation Glucose POC Glucose 134 Calculated Osmolal ity Calcium Magnesium Total Bilirubin AST ALT Alkaline Phosphata se Total Protein Albumin Globulin Vitals: Last Vital Signs Temp 99.1 F 01/10/20 11:43 Pulse 76 01/10/20 11:43 Resp 18 01/10/20 11:43 BP 173/94 01/10/20 11:43 Pulse Ox 96 01/10/20 11:43 Discharge Plan Discharge Patient Disposition: Home, Self-Care Condition: Stable Prescriptions: New chlorthalidone 25 mg Tablet 25 mg PO DAILY 30 Days Qty: 30 RF: 0 amlodipine 10 mg Tablet 10 mg PO DAILY 30 Days Qty: 30 RF: 0 Miralax 17 gram Powder In Packet 17 g PO DAILY 30 Days Qty: 30 RF: 0 Colace 100 mg capsule 100 mg PO BID 30 Days Qty: 60 RF: 0 glipizide 10 mg tablet 10 mg PO BID 30 Days Qty: 60 RF: 0 metformin 1,000 mg tablet 1,000 mg PO BID 30 Days Qty: 60 RF: 0 nystatin [Nyamyc] 100,000 unit/gram Powder 1 applic topical BID 7 Days Qty: 60 RF: 0 Continued Multiple Vitamin, Womens Tablet 1 tab PO DAILY RF: 0 Discontinued glipizide 500 mg PO BIDAC RF: 0 metformin 5 mg PO BIDWM RF: 0 Discharge Orders: Discharge Order (Routine); Ordered 01/10/20 Ordered By: Braeden Enrique Other Ambulatory Orders: Complete Blood Count w/Auto (Routine) Timeframe: 1 Week Location: Determined by Patient Ordered By: Braeden Enrique Comprehensive Metabolic Panel (Routine) Timeframe: 1 Week Facility: [facility] - Location: Lab - Main Lab Ordered By: Braeden Enrique Discharge Diet: Cardiac Discharge Activity: Resume usual activity Patient Instructions: Diabetic Foot Care (GEN), Diabetes Mellitus Type 2 in Children (DC), Diabetic Hypoglycemia (DC), How to Check Your Blood Sugar (DC), Meal Planning with the Plate Model (GEN), Meal Planning with the Plate Model (DC), Type 2 Diabetes, Pancreatitis (DC) Activity Restrictions/Additional Instructions: -I have increased her dose of glipizide from 5 mg twice daily to 10 mg twice daily -Please monitor blood sugars 3 times daily, add glipizide can cause low blood sugars, if you take glipizide and you feel lightheaded or dizzy or an easy, check your blood sugar, if blood sugar less than 60, drink orange juice and come to the emergency room -I have increased her dose of metformin to thousand twice daily -For your pancreatitis please avoid alcohol, please follow-up with primary care -For your hypertension, continue Norvasc and chlorthalidone as prescribed, follow-up with primary care provider for rechecking blood pressure Discharge Attestations Time Spent in Discharge Care*: less than 30 min Quality Metrics Clinical Quality Measures During this hospital stay, did patient experience: None Coding Level of Care Code 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
[2020-01-10 14:53] VITALS: BP 173/94; PULSE 76; RESP 18; TEMP 37.3; O2SAT 96
[2020-01-10] MEDS: chlorthalidone 25 mg Tablet PO (15:13)
[2020-01-10 15:36] VITALS: BP 154/66; PULSE 79; RESP 18; TEMP 37.1; O2SAT 96
[2020-01-10] MEDS: enoxaparin 40 mg/0.4 mL Syringe SUBCUT (18:11)
[2020-01-10 18:19] LABS: Glucose Point of Care 339 mg/dL (70-110)
== END 2020-01-10 19:00 | disposition home or self-care (01) | DRG 440 ==
LOC: ER 10:51 → MEDSURG 12:45
PROVIDERS: Family Medicine; Admitting Provider Student in an Organized Health Care Education/Training Program; Visit Provider Family Medicine
DX: K85.00 Idiopathic acute pancreatitis without necrosis or infection (principal); E11.9 Type 2 diabetes mellitus without complications; E86.0 Dehydration; Z79.84 Long term (current) use of oral hypoglycemic drugs
CPT/HCPCS: 12345; 36415; 36416; 74177; 76705; 80053; 81001; 82962; 83036; 83605; 83690; 83735; 84443; 84478; 85025; 96372; 96375; 99282; J1650; J1815; J1885; J2270; J7030; Q9967

== ENCOUNTER 2020-07-03 10:32 | Outpatient (CLI) | payer OTHER, SELFPAY ==
--- NOTE | 2020-07-03 10:40 | XR_ITS ---
WS: [id number] Right hip, AP and frog-leg views, AP pelvis, 07/03/2020 Clinical Data: DJD Comparison: None. Findings: No fractures or dislocations are seen. Hips are intact. The soft tissues are not remarkable. The t pe lvis is normal. The SI joints and pubic symphysis are unremarkable. Minimal osteoarthritic spurring of the lower lumb ar vertebral bodies is seen. XR/XR hip RT 2-3V wo/w pel* [id number] Impression: Negative pelvis and right hip.
--- NOTE | 2020-07-03 10:41 | XR_ITS ---
WS: [id number] Lumbar spine, 3 views, 07/03/2020 Clinical Data: DJD Comparison: None. Findings: No compression fractures or subluxation is seen. No disc space narrowing is seen. The transverse proc esses and SI joints are normal. There is minimal osteoarthritic spurring of all the lumbar vertebral bodies. XR/XR lumbar spine 2-3V* [id number] Impression: Minimal osteoarthritis of the lumbar vertebral bodies.
== END 2020-07-03 10:33 | disposition home or self-care (01) ==
LOC: RAD 10:34
PROVIDERS: Visit Provider Dermatology
DX: Z02.71 Encounter for disability determination (principal); M19.90 Unspecified osteoarthritis, unspecified site
CPT/HCPCS: 72100; 73502

== ENCOUNTER 2020-12-08 08:24 | Emergency (ER) | payer SELFPAY ==
[2020-12-08 08:31] VITALS: BP 171/73; PULSE 93; RESP 18; TEMP 37.1; O2SAT 96
[2020-12-08 08:42] VITALS: BP 171/73; PULSE 96; RESP 18; O2SAT 99
--- NOTE | 2020-12-08 08:45 | W.ED.EAR ---
HPI - Ear Problem General: Chief complaint: Ear Stated complaint: R ear swelling/pain; neck swelling; post vaccine Time Seen by Provider: 12/08/20 08:27 Source: patient Mode of arrival: ambulatory Limitations: no limitations History of Present Illness: HPI Narrative: Patient is a nice 55-year-old male who presents to ED today with a complaint of severe right ear pain. Patient tells me she has had the pain for approximately a week now. She states after receiving the first dose of her COVID she had left ear pain that lasted a few days and subsided on its own. She states after receiving her second dose she began noticing pain in the right ear. She feels like the ear is swollen. She is having pain surrounding the ear and down into her neck. She feels like when she ambulates if she is being pulled to that side . She has not noticed any hearing loss or tinnitus. She states she was outside and when the wind blew it caused excruciating pain inside of her ear. She has not noticed drainage. No fevers. Patient is a diagnosed diabetic who is not taking any medications stating she was unhappy with her PCP care and decided to just get off all my medications . Does not check blood sugars at home. She complains of chronic rashes under her breasts and in her inguinal folds. MD Complaint: ear pain Location: right ear Duration: constant Severity: severe Relieving factors: nothing Exacerbating factors: chewing and palpation Discharge from ear: no Associated symptoms: Reports ear or mastoid pain, external ear pain, headache(s) and neck pain; Denies fever(s) or tinnitus Treatment prior to arrival: none Review of Systems Const: Denies: fever(s), chills, body aches, change in appetite, change in weight, fatigue or malaise Eyes: Denies: change in vision, photophobia, floaters or seeing flashes ENMT: Reports: ear or mastoid pain and other (painful chewing); Denies: throat pain, uvular edema, enlarged tonsils, mouth pain, oral sores, ear discharge, change in hearing, tinnitus, nasal discharge, nasal congestion, epistaxis, post nasal drip or sinus pain Card: Denies: chest pain, palpitations, irregular heart rhythm, edema, lightheadedness, syncope or pre-syncope Resp: Denies: dyspnea GI: Denies: abdominal pain, nausea, vomiting or diarrhea Musc: Reports: neck pain; Denies: back pain, extremity pain, extremity swelling, joint pain or joint swelling Skin/Breast: Reports: rash (chronic-under breasts and in inguinal folds) Neuro: Reports: headache(s) and vertigo; Denies: numbness in extremities, weakness in extremities, sensory changes, lack of coordination, frequent falls, confusion, behavioral changes, Slurred speech present or difficulty communicating thoughts PFSH ED PFSH: Medical History (Updated 12/08/20 @ 10:28 by KONSTANTIN Porter) Cellulitis Diabetes mellitus Poison jaime dermatitis Social History Smoking and tobacco status: never smoked Physical Exam Const: COMMON NORMALS: patient oriented x3, no limitations and alert GENERAL APPEARANCE: cooperative, in distress (appears uncomfortable) and other (tearful at times during history and exam) ORIENTATION/CONSCIOUSNESS: Yes awake, Yes oriented to person, Yes oriented to place and Yes oriented to time HENMT: COMMON NORMALS: normocephalic, atraumatic, hearing grossly normal bilaterally, external ears normal, TM's normal bilaterally, Normal external nose present, Normal nasal mucous membranes and turbinates present, moist oral mucous membranes, oropharynx normal, dentition normal and gingiva normal HEAD & SCALP: normal to inspection, normocephalic and atraumatic FACE & SINUS: sinuses nontender and other (TTP TMJ and posterior auricular; no erythema to mastoid ) NOSE: Normal external nose present and Normal nasal mucous membranes and turbinates present EXTERNAL EAR: Yes external ears normal EXTERNAL AUDITORY CANAL: Abnormal EAC present EAC laterality: right Details: erythema and EAC tenderness TYMPANIC MEMBRANE: TM's normal bilaterally THROAT: no uvular edema Eye: COMMON NORMALS: Equal, round and reactive pupils present and EOMs intact bilaterally GENERAL EYE: appearance normal, both eyes and all related structures PUPIL: Yes Equal, round and reactive pupils present Neck/C-Spine: COMMON NORMALS: full ROM GENERAL: Yes lymphadenopathy Lymphadenopathy location: submandibular (R) and anterior cervical (R) OTHER: tenderness noted throughout R side of neck Resp: COMMON NORMALS: normal respiratory effort and clear to auscultation bilaterally AUSCULTATION: clear to auscultation bilaterally Cardio: COMMON NORMALS: regular rate and regular rhythm RATE: regular rate RHYTHM: regular rhythm Neuro: COMMON NORMALS: patient oriented x3 SENSORIUM/ORIENTATION: Yes alert, Yes oriented to person, Yes oriented to place and Yes oriented to time Course Vital Signs: Vital signs: Vital Signs Temperature 98.7 F 12/08/20 08:31 Pulse Rate 84 12/08/20 09:23 Respiratory Rate 18 12/08/20 09:23 Blood Pressure 111/70 12/08/20 09:23 Pulse Oximetry 100 12/08/20 09:23 MDM - Ear MDM Narrative: Medical decision making narrative: Pts TM is normal. She has erythema to R EAC and severe tenderness on otoscopic evaluation. There is no edema or otic discharge. No mastoiditis. Concern initially for possible malignant otitis externa especially with her uncontrolled diabetes but with a normal CRP and ESR of only 16 I think this would be extremely unlikely. Again no EAC discharge or granulation tissue visualized. Discussed at length the need for her to stop ignoring her diabetes and get back on medication for this (hemoglobin A1c was 14.4). Patient states she is going to followup with a WIRE FENCE ERECTOR at [facility]. Will go ahead and start her on Metformin today. Recommended nystatin powder for rash but she states she has been on this previously and felt like it made rash worse. Recommend continuing baby powder and will prescribe clotrimazole topical. Discussed keeping area clean. We will write her for Ciprodex for her otalgia. Strict return to ED precautions given. Lab Data: Labs: Lab Results 12/08/20 12/08/20 12/08/20 Range/Units 08:52 08:52 08:52 WBC 11.3 H (4.0-10.0) 10^3/ uL RBC 5.60 H (4.1-5.3) 10^6/u L Hgb 15.8 H (11.5-15.3) g/dL Hct 47.0 (37.0-47.0) % MCV 83.9 (81-99) fL MCH 28.2 (28.0-34.0) pg MCHC 33.6 (30.0-36.0) g/dL RDW 12.3 (12.1-15.1) % Plt Count 420 H (130-400) 10^3/c mm MPV 10.2 (7.4-10.4) fL Neut % (Auto) 50.5 % Lymph % (Auto) 38.8 % [place] % (Auto) 7.1 % Eos % (Auto) 2.6 % Baso % (Auto) 0.7 % Neut # (Auto) 5.72 (1.8-7.7) 10^3/u L Lymph # (Auto) 4.4 (0.8-4.8) 10^3/u L [place] # (Auto) 0.8 (0.2-0.9) 10^3/u L Eos # (Auto) 0.3 (0.0-0.8) 10^3/u L Baso # (Auto) 0.1 (0.0-0.1) 10^3/u L Nucleated RBC % (a uto) 0 % Nucleated RBCs # 0.0 /100WBC ESR 16 H (0-15) mm/hr Sodium 135 L (136-145) mmol/L Potassium 4.1 (3.5-5.1) mmol/L Chloride 98 (98-107) mmol/L Carbon Dioxide 25 (22-29) mmol/L Anion Gap 16.1 (5-19) BUN 9 (6-20) mg/dL Creatinine 0.4 L (0.5-0.9) mg/dL GFR Calculation 165.7 H (90-130) mL/min Glucose 392 H (65-115) mg/dL Estimat Average Gl ucose Hemoglobin A1c (4.0-6.0) % Calculated Osmolal ity 295 (285-295) mOsm/k g Calcium 8.5 (8.5-10.5) mg/dL Total Bilirubin 0.7 (0.15-1.2) mg/dL AST 14 (0-32) U/L ALT 12 (0-33) U/L Alkaline Phosphata se 114 H (35-105) IU/L C-Reactive Protein 4.6 (0.0-4.9) mg/L Total Protein 7.8 (6.6-8.7) g/dL Albumin 4.1 (3.5-5.2) g/dL Globulin 3.7 (1.3-4.6) g/dL 12/08/20 Range/Units 08:52 WBC (4.0-10.0) 10^3/ uL RBC (4.1-5.3) 10^6/u L Hgb (11.5-15.3) g/dL Hct (37.0-47.0) % MCV (81-99) fL MCH (28.0-34.0) pg MCHC (30.0-36.0) g/dL RDW (12.1-15.1) % Plt Count (130-400) 10^3/c mm MPV (7.4-10.4) fL Neut % (Auto) % Lymph % (Auto) % [place] % (Auto) % Eos % (Auto) % Baso % (Auto) % Neut # (Auto) (1.8-7.7) 10^3/u L Lymph # (Auto) (0.8-4.8) 10^3/u L [place] # (Auto) (0.2-0.9) 10^3/u L Eos # (Auto) (0.0-0.8) 10^3/u L Baso # (Auto) (0.0-0.1) 10^3/u L Nucleated RBC % (a uto) % Nucleated RBCs # /100WBC ESR (0-15) mm/hr Sodium (136-145) mmol/L Potassium (3.5-5.1) mmol/L Chloride (98-107) mmol/L Carbon Dioxide (22-29) mmol/L Anion Gap (5-19) BUN (6-20) mg/dL Creatinine (0.5-0.9) mg/dL GFR Calculation (90-130) mL/min Glucose (65-115) mg/dL Estimat Average Gl ucose 367 Hemoglobin A1c 14.4 H (4.0-6.0) % Calculated Osmolal ity (285-295) mOsm/k g Calcium (8.5-10.5) mg/dL Total Bilirubin (0.15-1.2) mg/dL AST (0-32) U/L ALT (0-33) U/L Alkaline Phosphata se (35-105) IU/L C-Reactive Protein (0.0-4.9) mg/L Total Protein (6.6-8.7) g/dL Albumin (3.5-5.2) g/dL Globulin (1.3-4.6) g/dL Discharge Plan Discharge Patient Disposition: Home Clinical Impression: Otalgia of right ear, Candidal intertrigo Uncontrolled diabetes mellitus Qualifiers: Diabetes mellitus type: type 2 Glycemic state: with hyperglycemia Qualified Code(s): E11.65 - Type 2 diabetes mellitus with hyperglycemia Condition: Stable Prescriptions: New Ciprodex 0.3-0.1 % drops,suspension 4 drp otic (ear) BID 7 Days Qty: 7.5 RF: 0 metformin 500 mg tablet 500 mg PO BID Qty: 60 RF: 0 tramadol 50 mg tablet 50 mg PO Q6H PRN (Reason: pain) Qty: 14 RF: 0 clotrimazole 1 % cream 1 applic topical BID 28 Days Qty: 45 RF: 0 No Action Azodine Urinary 95 mg Tablet 95 mg PO TID PRN (Reason: UTI SYMPTOMS) RF: 0 ibuprofen 200 mg Tablet 200 mg PO Q6H PRN (Reason: Pain) RF: 0 Discharge Orders: Discharge ED (Routine); Ordered 12/08/20 Ordered By: Leonila Plasencia Patient Instructions: Diabetes and Diet, Ear Pain - Adult, Diabetes Mellitus Type 2 in Adults (ED), Earache (ED) Activity Restrictions/Additional Instructions: As we discussed it is imperative that you follow-up with primary care and begin treating your diabetes. Continuing to ignore this and leaving this untreated can lead to chronic infections, cardiac and kidney disease, nerve damage, damage to your eyes, and several other problems. You need to return to the emergency department for worsening or uncontrollable ear pain, discharge from your ear, facial paralysis, fevers greater than 100.4, severe headache, or any other concerns you may have. As we discussed continue to keep the folds where your rash is present dry. You may continue to use powders and barrier cream such as zinc oxide. I will write you for an antifungal cream to start using twice daily. Coding Level of Care Code ED Spray Maker for Callieg Fwd Exam Detailed
[2020-12-08 08:57] LABS: Basophils # 0.1 10^3/uL (0.0-0.1); Basophils % 0.7 %; Eosinophils # 0.3 10^3/uL (0.0-0.8); Eosinophils % 2.6 %; Hemoglobin 15.8 g/dL (11.5-15.3); Lymphocytes # 4.4 10^3/uL (0.8-4.8); Lymphocytes % 38.8 %; Mean Corpuscular HGB Conc 33.6 g/dL (30.0-36.0); Mean Corpuscular Hemoglobin 28.2 pg (28.0-34.0); Mean Corpuscular Volume 83.9 fL (81-99); Mean Platelet Volume 10.2 fL (7.4-10.4); Monocytes # 0.8 10^3/uL (0.2-0.9); Monocytes % 7.1 %; Neutrophils # 5.72 10^3/uL (1.8-7.7); Neutrophils % 50.5 %; Nucleated Red Blood Cells % 0 %; Platelet Count 420 10^3/cmm (130-400); Red Cell Distribution Width 12.3 % (12.1-15.1); White Blood Count 11.3 10^3/uL (4.0-10.0)
[2020-12-08 09:01] VITALS: RESP 18; O2SAT 98
[2020-12-08] MEDS: morphine 4 mg/mL SDV 1 mL IVP (09:01)
[2020-12-08] MEDS: ondansetron 2 mg/ML SDV 2 mL 4 MG IVP (09:01)
[2020-12-08 09:15] LABS: Estmated Average Glucose 367; Hemoglobin A1C 14.4 % (4.0-6.0)
[2020-12-08 09:17] LABS: Alanine Aminotransferase 12 U/L (0-33); Albumin Level 4.1 g/dL (3.5-5.2); Alkaline Phosphatase 114 IU/L (35-105); Anion Gap 16.1 (5-19); Aspartate Amino Transferase 14 U/L (0-32); Blood Urea Nitrogen 9 mg/dL (6-20); C Reactive Protein 4.6 mg/L (0.0-4.9); Calcium 8.5 mg/dL (8.5-10.5); Carbon Dioxide 25 mmol/L (22-29); Chloride 98 mmol/L (98-107); Globulin 3.7 g/dL (1.3-4.6); Glomerular Filtration Rate 165.7 mL/min (90-130); Glucose 392 mg/dL (65-115); Osmolality Calculated 295 mOsm/kg (285-295); Potassium 4.1 mmol/L (3.5-5.1); Sodium 135 mmol/L (136-145); Total Bilirubin 0.7 mg/dL (0.15-1.2); Total Protein 7.8 g/dL (6.6-8.7)
[2020-12-08 09:23] VITALS: BP 111/70; PULSE 84; RESP 18; O2SAT 100
[2020-12-08 10:08] LABS: Erythrocyte Sedimentation Rate 16 mm/hr (0-15)
[2020-12-08] MEDS: ketorolac 30 mg/mL INJ IVP (10:32)
[2020-12-08 11:02] VITALS: BP 115/68; PULSE 84; RESP 18; O2SAT 100
== END 2020-12-08 11:03 | disposition home or self-care (01) ==
PROVIDERS: Emergency Provider Physician Assistant
DX: H92.01 Otalgia, right ear (principal); L30.4 Erythema intertrigo; E11.65 Type 2 diabetes mellitus with hyperglycemia; Z79.84 Long term (current) use of oral hypoglycemic drugs
CPT/HCPCS: 80053; 83036; 85025; 85651; 86140; 96374; 96375; 99283; J1885; J2270; J2405

== ENCOUNTER 2020-12-14 09:33 | Emergency (ER) | payer SELFPAY ==
[2020-12-14 09:38] VITALS: BP 158/110; PULSE 98; RESP 18; TEMP 36.6; O2SAT 100; BMI 27.2
--- NOTE | 2020-12-14 10:04 | ED_ITS ---
HPI - Ear Problem General: Chief complaint: Ear Stated complaint: N/V/D/abd pain, R ear pain Time Seen by Provider: 12/14/20 09:38 History of Present Illness: HPI Narrative: Patient is a 55-year-old female comes to the ED with right ear pain, headache. Patient was seen here for same complaint back on December 08 and she was diagnosed with uncontrolled diabetes mellitus with otalgia right ear. Patient was prescribed Ciprodex eardrops, Metformin and tramadol. Patient says she has been taking all of her medications as prescribed. She states that a couple days ago she started developing some nausea and diarrhea. She has mild abdominal cramping as well. Patient says she had the same GI symptoms after starting Metformin several years ago. Patient says her right ear pain has improved but is still painful. She also endorses having a headache as well. She says she has an appointment with her PCP in a couple weeks. She says the prescribed tramadol was not helping with her pain so she has been supplementing it by taking 600 mg of ibuprofen every 2-4 hours for the past couple days. Associated symptoms: Reports ear or mastoid pain (right ear pain) and headache(s); Denies fever(s) or neck pain Review of Systems Const: Denies: fever(s), chills or fatigue Eyes: Denies: change in vision or eye discomfort ENMT: Reports: ear or mastoid pain (right ear pain); Denies: throat pain, odynophagia, nasal discharge or nasal congestion Card: Denies: chest pain, palpitations, edema, swelling of feet/ankles, dyspnea on exertion or orthopnea Resp: Denies: dyspnea, productive cough or non-productive cough GI: Reports: abdominal pain (Mild generalized abdominal cramping), nausea and diarrhea; Denies: vomiting, constipation or hematochezia : Denies: flank pain, dysuria or hematuria Musc: Denies: neck pain, back pain or extremity swelling Skin/Breast: Denies: rash or new lesions Neuro: Reports: headache(s); Denies: numbness in extremities or weakness in extremities [facility] ED PFSH: Medical History Cellulitis Diabetes mellitus Poison jaime dermatitis Social History Smoking and tobacco status: never smoked Physical Exam Const: COMMON NORMALS: no acute distress, patient oriented x3 and alert GENERAL APPEARANCE: cooperative and comfortable HENMT: COMMON NORMALS: normocephalic and TM's normal bilaterally HEAD & SCALP: normocephalic EXTERNAL AUDITORY CANAL: Abnormal EAC present EAC laterality: right Details: erythema and EAC tenderness TYMPANIC MEMBRANE: TM's normal bilaterally MOUTH: Normal oral and palatal mucosa present THROAT: posterior oropharynx normal and uvula midline Neck/C-Spine: COMMON NORMALS: supple GENERAL: Yes normal visual inspection Resp: COMMON NORMALS: normal respiratory effort, No retractions, No use of accessory muscles and clear to auscultation bilaterally AUSCULTATION: clear to auscultation bilaterally Cardio: COMMON NORMALS: regular rate, regular rhythm, S1 normal heart sound present, S2 normal heart sound present, No gallops present (Cardio), No clicks present (Cardio), No murmurs present (Cardio) and Peripheral pulses 2+ throughout RATE: regular rate RHYTHM: regular rhythm HEART SOUNDS: S1 normal heart sound present and S2 normal heart sound present PERIPHERAL PULSES: Peripheral pulses 2+ throughout GI: COMMON NORMALS: Normal to inspection, nondistended, normoactive bowel sounds present, Soft to palpation, non-tender and no masses PALPATION: Yes Soft to palpation : COMMON NORMALS: Yes no CVA tenderness BLADDER/KIDNEY EXAM: Yes no CVA tenderness Back/Pelvis: COMMON NORMALS: no CVA tenderness Extremity: COMMON NORMALS: normal to inspection and no pedal edema Neuro: COMMON NORMALS: patient oriented x3 and moves all extremities SENSORIUM/ORIENTATION: Yes alert Skin: GENERAL SKIN EXAM: dry skin Course Vital Signs: Vital signs: Vital Signs Temperature 97.9 F 12/14/20 09:38 Pulse Rate 98 12/14/20 09:38 Respiratory Rate 15 12/14/20 11:33 Blood Pressure 158/110 12/14/20 09:38 Pulse Oximetry 100 12/14/20 09:38 MDM - Ear MDM Narrative: Medical decision making narrative: Patient is a 55-year-old female comes to the ED with right ear pain and headache. Patient was seen here in the ED on December 08 for same complaint. At that visit patient was found to have uncontrolled diabetes type 2 with an A1c of 14. Patient was discharged with a prescription for Metformin and Ciprodex. Today she says her right ear pain is improving but still bothering her. Exam shows a nontoxic-appearing patient with right EAC erythema and tenderness and swelling. Her blood sugar was 286. Patient says she has been taking her Metformin daily as prescribed and trying to eat a better diet. She also reported having some symptoms of diarrhea, nausea over the past couple days which is likely due to starting Metformin and patient did say she had same symptoms when she started Metformin in the past. CT of head showed no acute findings. Patient was diagnosed with otalgia of right ear and headache and medication side effects. She was discharged with a prescription for Zofran for nausea and hydrocodone 5/325 mg 8 tablets. I encouraged her to continue taking her Metformin and to continue a diabetic friendly diet. I placed order with case management for patient be referred to ENT to further evaluation of her right ear pain. She also has a scheduled appoint with her PCP in approximately 2 weeks. Return to ED precautions given. Patient understood and agree with plan. Lab Data: Labs: Lab Results 12/14/20 Range/Units 10:21 POC Glucose 284 H (70-110) mg/dL Imaging Data^: CT Head: Attestation: I personally reviewed and interpreted this imaging study as follows: Radiologist's impression: [address] [address] [address] Scan Report Signed Patient: Soco Reeder Unit #: [id number] : 1965 Age/Sex: 55 / F ADM Date: 12/14/20 Loc: ER Room/Bed: Attending Dr: Ordering Provider/Ordering MD: Alban Valdez Date of Service: 12/14/20 Procedure(s): CT head wo con* [id number] Accession Number(s): [id number] Report Number: [id number] PROCEDURE INFORMATION: Exam: CT Head Without Contrast Exam date and time: 12/14/2020 10:06 AM Age: 55 years old Clinical indication: Pain; Headache; Additional info: Headache, right temporal region with ear pain TECHNIQUE: Imaging protocol: Computed tomography of the head without contrast. Radiation optimization: All CT scans at this facility use at least one of these dose optimization techniques: automated exposure control; mA and/or kV adjustment per patient size (includes targeted exams where dose is matched to clinical indication); or iterative reconstruction. COMPARISON: No relevant prior studies available. RADIATION DOSE METRICS: Total DLP (mGy-cm): 791.3 FINDINGS: Brain: There is mild patchy decreased white matter density consistent with chronic small vessel white matter ischemia. No intracranial hemorrhage, edema or other acute abnormalities are seen in the brain. There is no mass effect or midline shift. Cerebral ventricles: No ventriculomegaly. Paranasal sinuses: Visualized sinuses are unremarkable. No fluid levels. Mastoid air cells: Visualized mastoid air cells are well aerated. Bones/joints: Unremarkable. No acute fracture. Soft tissues: Unremarkable. CT/CT head wo con* [id number] IMPRESSION: 1. No acute intracranial abnormality. 2. Mild chronic small vessel white matter ischemic changes. Radiation Dose CTDIVOL = (mGy): DLP = 791.3 (mGy-cm) Dictated By: Sid Carver Signed By: Sid Carver Signed Date/Time: 12/14/20 110 DD/ 1101 Discharge Plan Discharge Patient Disposition: Home Clinical Impression: Otalgia of right ear, Medication side effects Headache Qualifiers: Headache type: unspecified Headache chronicity pattern: acute headache Intractability: not intractable Qualified Code(s): R51.9 - Headache, unspecified Condition: Stable Prescriptions: New Zofran 4 mg tablet 4 mg PO Q8H PRN (Reason: nausea and vomiting) Qty: 15 RF: 0 No Action Azodine Urinary 95 mg Tablet 95 mg PO TID PRN (Reason: UTI SYMPTOMS) RF: 0 ibuprofen 200 mg Tablet 200 mg PO Q6H PRN (Reason: Pain) RF: 0 Ciprodex 0.3-0.1 % drops,suspension 4 drp otic (ear) BID 7 Days Qty: 7.5 RF: 0 metformin 500 mg tablet 500 mg PO BID Qty: 60 RF: 0 tramadol 50 mg tablet 50 mg PO Q6H PRN (Reason: pain) Qty: 14 RF: 0 clotrimazole 1 % cream 1 applic topical BID 28 Days Qty: 45 RF: 0 Discharge Orders: Discharge ED (Routine); Ordered 12/14/20 Ordered By: Alban Valdez Discharge Diet: Diabetic Discharge Activity: Resume usual activity Patient Instructions: Earache (ED) Activity Restrictions/Additional Instructions: Follow-up with PCP scheduled appointment on next 2 weeks. Also welfare case worker will be contacting you in the next several days to set up an appointment with ear nose and throat doctor for further evaluation of right ear pain. Take medications as prescribed. Continue your diabetic diet dry and to cut out extra sugar/carbohydrate intake. Return to the ER or your medical provider if condition worsens. Please read and understand discharge instructions. Thank you for choosing [facility] for your healthcare needs today. Please realize this is an emergency room and that we are providing you with a medical screening exam and this may not be complete and all inclusive of all the testing and or work up that you may need to determine your ailment or severity of your illness. It is very important that you follow up as instructed or that you return to the Emergency Department should you have concerns or if your condition changes or worsens in any way. Coding Level of Care Code ED Product Development Coordinator for Lexi Fwezequiel Exam Comprehensive
[2020-12-14] MEDS: HYDROcodone-acetaminophen 7.5-325 mg Tablet 1 TAB PO (10:23)
[2020-12-14] MEDS: ondansetron 4 MG Tablet PO (10:23)
[2020-12-14 10:25] LABS: Glucose Point of Care 284 mg/dL (70-110)
[2020-12-14 11:03] VITALS: RESP 15
[2020-12-14 11:33] VITALS: RESP 15
--- NOTE | 2020-12-17 07:45 | DCPLANNER ---
scientific manager had message to schedule a follow up appointment for patient with ENT. scientific manager emailed patients information to Yamile Wheeler and Any at [facility] ENT clinic. Patients information will be printed and reviewed. Clinic will call patient with appointment information.
--- NOTE | 2020-12-26 08:03 | DCPLANNER ---
heavy equipment rental manager was notified that clinic has tried to reach patient multiple time, and have not been able to reach patient to schedule an appointment. Clinic mailed patient at letter asking patient to call clinic to schedule an appointment if still needed.
== END 2020-12-14 11:34 | disposition home or self-care (01) ==
PROVIDERS: Emergency Provider Physician Assistant
DX: H92.01 Otalgia, right ear (principal); R51.9 Headache, unspecified; T50.905A Adverse effect of unspecified drugs, medicaments and biological substances, initial encounter; E11.9 Type 2 diabetes mellitus without complications
CPT/HCPCS: 36416; 70450; 82962; 99283; Q0162

== ENCOUNTER → 2021-01-09 08:50 | Outpatient (BNVA) | payer SELFPAY | PROVIDERS: Visit Provider Otolaryngology | DX: H93.8X1 Other specified disorders of right ear (principal); Z20.822 Contact with and (suspected) exposure to COVID-19 | CPT/HCPCS: 87635 ==

== ENCOUNTER 2021-01-15 06:18 | Day surgery (SDC) | payer SELFPAY ==
[2021-01-14 16:08] VITALS: BMI 29.2
[2021-01-15] VITALS (7 sets, daily range): BP systolic 126–155; BP diastolic 65–79; PULSE 85–90; RESP 15–18; TEMP 36.3–37.2; O2SAT 97–100
[2021-01-15 07:15] LABS: OR HCG Qualitative Urine Negative (Negative)
[2021-01-15] MEDS: sodium chloride 0.9% 1,000 ML 30 ML IV (07:18)
--- NOTE | 2021-01-15 07:53 | W.PM.OPSUD ---
Surgery/Procedure H&P Update DATE OF PROCEDURE: January 15, 2021 DATE H&P PERFORMED: 01/07/21 H&P UPDATE INFORMATION: I have reviewed H&P completed within last 30 days, I have examined patient prior to procedure and No changes to prior documentation CHANGES TO PREVIOUS DOCUMENTATION: No changes PREOP DIAGNOSIS: Exophytic mass right external auditory canal PLANNED PROCEDURE: Operation Date: 01/15/21 08:10 Proposed Procedures p EXCISION SOFT TISSUE LESION OF RIGHT EXTERNAL AUDITORY CANAL 39170 H93.8X1(Left) - Grzegorz Last MD
--- NOTE | 2021-01-15 08:13 | ANES.PREANE2 ---
Pre-Anesthetic Assessment Pre-Anesthetic Assessment: Height/Weight: Height 1.57 m Weight 72.575 kg Temp Pulse Resp BP Pulse Ox 97.4 F L 88 16 155/79 100 01/15/21 06:44 01/15/21 06:44 01/15/21 06:44 01/15/21 06:44 01/15/21 06:44 Preop Diagnosis: Exophytic mass right external auditory canal Proposed Procedure: Operation Date: 01/15/21 08:10 Proposed Procedures p EXCISION SOFT TISSUE LESION OF RIGHT EXTERNAL AUDITORY CANAL 74683 H93.8X1(Left) - Grzegorz Last MD Was Beta Matteo taken within 24 hours: N/A Was Clonidine taken within 24 hours: N/A Last intake: Intake Last Liquid Date 01/15/21 Last Liquid Time 05:30 Last Solid Date 01/14/21 Last Solid Time 21:00 Social: Social History: No alcohol and No tobacco Exam: Pre-Anes Outpt Exam: alert, oriented x 3 and regular rate & rhythm Airway: Submandibular: WNL Cervical ROM: WNL MP: 2 Additional comments: Missing some Metabolic: Metabolic: DM Neuropsych: Neuropsych: Anxiety Anesthetic Plan: ASA status: 2 Anesthesia: General Risk of > 500 ml blood loss (7ml/kg in children): No Meds/Allergies Current Medications: Current Medications Generic Name Dose Route Start Last Admin Trade Name Freq PRN Reason Stop Dose Admin Sodium Chloride 1,000 mls @ 30 ml s/hr 01/15/21 06:30 01/15/21 07:18 Sodium Chloride 0.9% IV 01/16/21 06:29 30 mls/hr .Q24H JUVE Administration PFSH Anesthesia PFSH: Medical History Cellulitis Diabetes mellitus Poison jaime dermatitis Social History Smoking and tobacco status: never smoked Data Anesthesia Other Labs: Laboratory Results - last 48 hr 01/15/21 06:47 Urine HCG, Qual Negative Cardiac Studies: No Data to Display
[2021-01-15] MEDS: ciprofloxacin-dexameth Otic Susp 7.5 mL Btl 4 DROP EAR-RIGHT (09:09)
[2021-01-15 09:24] LABS: Glucose Point of Care 318 mg/dL (70-110)
--- NOTE | 2021-01-15 09:37 | P.OP_ITS ---
Operative Report Date of procedure: January 15, 2021 Pre-op Diagnosis: Exophytic mass right external auditory canal Post-op diagnosis: same Post-op Findings: Frozen section findings consistent with acute and chronic inflammation with granulation tissue increased keratinization but no sign of malignancy. Procedure Done: Excision of right external auditory canal mass Implants: Packing with Gelfoam and Ciprodex drops. Specimens removed/disposition: Specimen forwarded to pathology for frozen sectio n Pathology: Excised specimen from right external auditory canal Surgeon: Grzegorz Last Anesthesia: General and Local Estimated blood loss (mL): 15 Complications: No complications encountered Findings: Multi lobulated irregular mass from near the meatus inferiorly to approximately 1-1/2 cm medially. Did not affect anterior canal wall or posterior canal wall. Did not affect the tympanic membrane which was intact and normal. Condition: stable Disposition: PACU Brief History: 55-year-old female patient has been suffering with long-term ear pain and otitis externa of the right ear canal. In spite of treatment with antibiotics and drops and debridements the patient was left with a persistent mass in the lateral ear canal on the right side. The mass has persisted and therefore the patient is being brought to the operating room to undergo excision of this lesion and frozen section to determine if there is a malignant pathology. The procedure its risks and complications were explained in detail to the patient and her . The risks include bleeding infection numbness scarring swelling bruising recurrence need for additional treatment and more serious risks associated with anesthesia such as heart attack or stroke or not surviving the surgery. With these things understood informed consent was granted. Procedure: Description of procedure: The patient was placed on the operating table in the supine position. Adequate general LMA anesthesia was obtained. She received Ancef 2 g IV for prophylaxis. The patient was then prepped and draped in usual fashion. A timeout was accomplished identifying the patient date of plan procedure allergies fire risk and medications given. With all in agreement the procedure continued. With microscopic visualization through an ear speculum 2% Xylocaine with 1-100,000 epinephrine was infiltrated into the canal skin from the lateral aspect medially. Approximately 2 mL was utilized. Several minutes were allowed to pass for that to take effect. Then utilizing again microscopic visualization through the ears speculum a round knife was used to make the incisions laterally and medially and a sickle knife was used to create the connecting incisions anteriorly and posteriorly. Then the round knife was used to elevate the tissue down to the bone level and remove the specimen. The specimen was very friable and broke into multiple pieces. These were retrieved in a piecemeal fashion and forwarded to pathology for frozen section. While that was accomplished the area was irrigated and suctioned. The skin flaps were placed into proper position and left at that location until the frozen section diagnosis returned. It did return as a combination of acute and chronic inflammatory cells with keratinaceous debris as well as increased keratin thickened tissues granulation tissue but no evidence of malignancy. With that information after suctioning the canal once again Gelfoam compressed and soaked in Ciprodex drops was applied from medial to lateral filling the canal completely and then this was followed by a sterile cotton ball and sterile Band-Aid to hold the cotton ball in the karel bowl externally. The patient's drapes were removed. She was returned to the anesthesiologist for extubation and transport to recovery. She tolerated the procedure well had an estimated blood loss of 15 mL and arrived in recovery in stable condition.
[2021-01-15 09:55] LABS: Glucose Point of Care 295 mg/dL (70-110)
--- NOTE | 2021-01-15 10:20 | PC.NURSE ---
Pt blood sugar post-op 295. No insulin given per Dr. Fontana.
--- NOTE | 2021-01-15 14:33 | ANE.PACU2 ---
Inpatient post-anesthesia follow up: Airway intact: Yes Vital signs: Temperature 97.7 F Pulse Rate 88 Respiratory Rate 16 Blood Pressure 155/69 Pulse Oximetry 99 Oxygen Delivery Me thod Room Air Oxygen Flow Rate 6 Fraction of Inspir ed Oxygen Hydration adequate: Yes Nausea and vomiting: No Pain level: 2 Mental status: Baseline
== END 2021-01-15 10:37 | disposition home or self-care (01) ==
PROVIDERS: Anesthesiology; Visit Provider Otolaryngology
PROC: (CPT 69145; principal; 2021-01-15 08:00)
DX: H93.8X1 Other specified disorders of right ear (principal); E11.9 Type 2 diabetes mellitus without complications; F41.9 Anxiety disorder, unspecified
CPT/HCPCS: 69145; 36416; 82962; 84703; 88307; 88331; J0690; J1100; J2250; J2405; J2704; J3010; J7030

== ENCOUNTER 2021-02-23 10:33 | Emergency (ER) | payer MEDICAID, SELFPAY ==
[2021-02-23 10:39] VITALS: BP 149/93; PULSE 90; RESP 15; TEMP 37; O2SAT 97; BMI 25.4
--- NOTE | 2021-02-23 10:50 | ED_ITS ---
HPI - Extremity Problem General: Chief complaint: Extremity Injury, Lower Stated complaint: R. FOOT INJURY/SWELLING/STEPPED ON NAIL Time Seen by Provider: 02/23/21 10:40 Source: patient Mode of arrival: ambulatory Limitations: no limitations History of Present Illness: HPI Narrative: Patient is a 55-year-old female who presents to ED today for evaluation after stepping on a nail with her right foot yesterday. Last tetanus is unknown. Patient feels like she has noted some mild swelling around the puncture site. She has not noticed any redness or warmth to the foot. No streaking up her leg. No fevers. Patient is a diabetic. Complaint: extremity pain Onset (ago): day(s) (yesterday) Pain Consistency: constant Location: right and lower extremity Radiation: none Relieving factors: immobilization Exacerbating factors: weight bearing Associated symptoms: Reports no associated symptoms; Deny chest pain or fever(s) Context: other (stepped on nail) Review of Systems Const: Denies: fever(s), chills, body aches, fatigue or malaise Card: Denies: chest pain Resp: Denies: dyspnea GI: Denies: nausea or vomiting Musc: Reports: extremity pain (R foot); Denies: extremity swelling, joint pain, joint swelling, joint redness, joint warmth, joint stiffness or limited range of motion Skin/Breast: Reports: other (puncture wound to R foot) Neuro: Denies: numbness in extremities, weakness in extremities or sensory changes [facility] ED PFSH: Medical History Cellulitis Diabetes mellitus Poison jaime dermatitis Social History Smoking and tobacco status: never smoked Physical Exam Const: COMMON NORMALS: no acute distress, patient oriented x3, no limitations and alert GENERAL APPEARANCE: cooperative ORIENTATION/CONSCIOUSNESS: Yes awake, Yes oriented to person, Yes oriented to place and Yes oriented to time Extremity: GENERAL: Yes normal exam except as noted RIGHT LOWER EXTREMITY: Yes foot & digits (see below) OTHER: small puncture wound to arch of midfoot w/o redness, swelling, drainage, odor, lymphangitic streaking or other concerning findings Neuro: COMMON NORMALS: patient oriented x3, moves all extremities, no focal motor deficits and no sensory deficits noted SENSORIUM/ORIENTATION: Yes alert, Yes oriented to person, Yes oriented to place and Yes oriented to time Skin: NARRATIVE SKIN EXAM: see extremity assessment for pertinent skin findings Course Vital Signs: Vital signs: Vital Signs Temperature 98.6 F 02/23/21 10:39 Pulse Rate 86 02/23/21 11:21 Respiratory Rate 16 02/23/21 11:21 Blood Pressure 120/78 02/23/21 11:21 Pulse Oximetry 95 02/23/21 11:21 MDM - Extremity (Nontraumatic) MDM Narrative: Medical decision making narrative: Patient is an uncontrolled DM. No infection presently but certainly risk of progressing. She will be placed on cipro/bactrim that will cover for staph/MRSA and pseudomonas. Tetanus updated. Strict return to ED precautions given. Discharge Plan Discharge Patient Disposition: Home Clinical Impression: Puncture wound of plantar aspect of right foot Qualifiers: Encounter type: initial encounter Qualified Code(s): S91.331A - Puncture wound without foreign body, right foot, initial encounter Condition: Stable Prescriptions: New Cipro 500 mg tablet 500 mg PO Q12H Qty: 14 RF: 0 Bactrim DS 800-160 mg tablet 1 tab PO BID 7 Days Qty: 14 RF: 0 No Action metformin 500 mg tablet 500 mg PO BID Qty: 60 RF: 0 tramadol 50 mg tablet 50 mg PO Q6H PRN (Reason: pain) Qty: 30 RF: 0 Discharge Orders: Discharge ED (Routine); Ordered 02/23/21 Ordered By: Leonila Plasencia Patient Instructions: Puncture Wound (ED) Activity Restrictions/Additional Instructions: As we discussed you need to soak the foot as much as possible in warm soapy water. You have been provided a bottle of Betadine to use as well. You need to fill and begin your antibiotics immediately making sure you do not miss any doses. You need to return to the emergency department immediately for foot swelling, redness, warmth/heat, red streaking up your leg, fevers, or any other concerns you may have. Your tetanus has been updated today. Coding Level of Care Code ED Supervisor Lending Activities for Lexi Fwd Exam Expanded Problem Focused
--- NOTE | 2021-02-23 10:50 | XRR_ITS ---
PROCEDURE INFORMATION: Exam: XR Right Foot Exam date and time: 02/23/2021 10:50 AM Age: 55 years old Clinical indication: Pain; Foot; Right; Additional info: Stepped on nail TECHNIQUE: Imaging protocol: XR Right foot. Views: 3 or more views. COMPARISON: No relevant prior studies available. FINDINGS: Bones/joints: Normal. Soft tissues: Normal. XR/XR foot RT min 3V* [id number] IMPRESSION: No evidence for fracture or radiopaque foreign body.
[2021-02-23] MEDS: tetanus-diphtheria tox (adult) 0.5 mL SDV IM (11:16)
[2021-02-23 11:21] VITALS: BP 120/78; PULSE 86; RESP 16; O2SAT 95
== END 2021-02-23 11:24 | disposition home or self-care (01) ==
PROVIDERS: Emergency Provider Physician Assistant
DX: S91.331A Puncture wound without foreign body, right foot, initial encounter (principal); E11.9 Type 2 diabetes mellitus without complications; W45.0XXA Nail entering through skin, initial encounter; Z23 Encounter for immunization
CPT/HCPCS: 73630; 90471; 90714; 99282

== ENCOUNTER 2021-04-11 08:28 | Emergency (ER) | payer MEDICAID, SELFPAY ==
[2021-04-11 08:42] VITALS: BP 146/80; PULSE 91; RESP 18; TEMP 36.7; O2SAT 98; BMI 28.9
--- NOTE | 2021-04-11 08:56 | ED_ITS ---
Documented by User: KONSTANTIN Porter 04/11/21 11:04 HPI - Abdominal Pain General: Chief Complaint: Abdominal Pain Stated Complaint: Pancreatitis Flare Up Time Seen by Provider: 04/11/21 08:30 Source: patient Mode of arrival: ambulatory Limitations: no limitations History of Present Illness: HPI narrative: Patient is a 55-year-old female who presents to ED today with a complaint of upper abdominal pain over the past 2 to 3 days. She states the pain has progressively worsened since onset. She states she has had an identical episode previously when she was diagnosed with pancreatitis. She required hospitalization at that time. No etiology was found during her stay. She has had some nausea but no active episodes of emesis. She is reporting some mild constipation. No fevers. Patient denies alcohol use. Has tried bland liquid diet at home to try and treat prior to coming to ED but states pain continues to worsen. MD elicited complaint: abdominal pain Pertinent past history: other (pancreatitis) Onset (ago): day(s) Pain Consistency: constant Location: Epigastric, LUQ and RUQ Quality: stabbing and sharp Radiation: none Migration to: no migration Relieving factors: nothing Associated Symptoms: Reports constipation and nausea; Denies chills, GI cramping, diarrhea, dysuria, excessive flatus, fever(s), hematochezia, melena, syncope and vomiting Treatments prior to arrival: NSAIDs Review of Systems Const: Denies: fever(s), chills, body aches, fatigue or malaise Card: Denies: chest pain, palpitations, irregular heart rhythm, edema, lightheadedness, syncope or pre-syncope Resp: Denies: dyspnea, productive cough, non-productive cough, wheezing, hemoptysis or chest congestion GI: Reports: abdominal pain, nausea and constipation; Denies: vomiting, diarrhea, GI cramping, excessive flatus, hematochezia or melena : Denies: flank pain, difficulty voiding, dysuria or urinary urgency Musc: Denies: neck pain or back pain Skin/Breast: Denies: rash Neuro: Denies: headache(s), numbness in extremities, weakness in extremities, sensory changes or dizziness PFS ED PFSH: Medical History Cellulitis Diabetes mellitus Poison jaime dermatitis Social History Smoking and tobacco status: never smoked Physical Exam Const: COMMON NORMALS: no acute distress, patient oriented x3, no limitations, alert and well nourished GENERAL APPEARANCE: cooperative NUTRITIONAL APPEARANCE: overweight ORIENTATION/CONSCIOUSNESS: Yes awake, Yes oriented to person, Yes oriented to place and Yes oriented to time HENMT: COMMON NORMALS: normocephalic and atraumatic HEAD & SCALP: normocephalic and atraumatic Resp: COMMON NORMALS: normal respiratory effort and clear to auscultation bilaterally AUSCULTATION: clear to auscultation bilaterally Cardio: COMMON NORMALS: regular rate and regular rhythm RATE: regular rate RHYTHM: regular rhythm GI: COMMON NORMALS: Normal to inspection, nondistended, normoactive bowel sounds present, Soft to palpation, No hepatosplenomegaly present and no masses AUSCULTATION: Yes normoactive bowel sounds PALPATION: Yes Soft to palpation, Yes Tenderness to palpation present (GI) (throughout upper abdomen) and Yes No hepatosplenomegaly present : COMMON NORMALS: Yes no CVA tenderness BLADDER/KIDNEY EXAM: Yes no CVA tenderness Back/Pelvis: COMMON NORMALS: no CVA tenderness Extremity: COMMON NORMALS: normal to inspection Neuro: COMMON NORMALS: patient oriented x3 SENSORIUM/ORIENTATION: Yes alert, Yes oriented to person, Yes oriented to place and Yes oriented to time Skin: COMMON NORMALS: no rashes or lesions noted GENERAL SKIN EXAM: no rashes or lesions noted TRAUMA: no lacerations or abrasions Course Vital Signs: Vital signs: Vital Signs Temperature 98.1 F 04/11/21 08:42 Pulse Rate 87 04/11/21 11:16 Respiratory Rate 16 04/11/21 09:26 Blood Pressure 123/74 04/11/21 11:16 Pulse Oximetry 97 04/11/21 11:16 MDM - Abdominal Pain MDM Narrative: Medical decision making narrative: Patient is completely pain- free here. She has not had any episodes of vomiting. Her vital signs are normal. WBC is 10.8. She has normal LFTs. Lipase is mildly elevated at 163. She does have subtle changes to her pancreas on CT imaging. There is no evidence for abscess or necrosis. She has no evidence for organ failure. Glucose is elevated at 326. Patient admittedly has not been taking her Metformin stating she ran out of this medication 3 months ago. Will refill her Metformin and place her on pain/nausea meds at home. I think it is reasonable to try outpatient management for mild pancreatitis at this time. Strict return to ED precautions given. I'm having CM set her up wtih a PCP for further management of her diabetes. They can also refer to GI if necessary now that patient has had two (assumedly) idiopathic episodes of pancreatitis. Lab Data: Labs: Lab Results 04/11/21 04/11/21 04/11/21 09:19 09:19 09:53 WBC 10.8 10^3/uL H 10 ^3/uL (4.0-10.0) RBC 6.01 10^6/uL H 10 ^6/uL (4.1-5.3) Hgb 17.2 g/dL H g/dL (11.5-15.3) Hct 51.1 % H % (37.0-47.0) MCV 85.0 fl fl (81-99) MCH 28.6 pg pg (28.0-34.0) MCHC 33.7 g/dL g/dL (30.0-36.0) RDW 12.1 % % (12.1-15.1) Plt Count 449 10^3/cmm H 10 ^3/cmm (130-400) MPV 10.1 fL fL (7.4-10.4) Neut % (Auto) 59.6 % % Lymph % (Auto) 32.3 % % [place] % (Auto) 6.0 % % Eos % (Auto) 1.3 % % Baso % (Auto) 0.6 % % Neut # (Auto) 6.46 10^3/uL 10^3 /uL (1.8-7.7) Lymph # (Auto) 3.5 10^3/uL 10^3/ uL (0.8-4.8) [place] # (Auto) 0.7 10^3/uL 10^3/ uL (0.2-0.9) Eos # (Auto) 0.1 10^3/uL 10^3/ uL (0.0-0.8) Baso # (Auto) 0.1 10^3/uL 10^3/ uL (0.0-0.1) Nucleated RBC % (a uto) 0 % % Nucleated RBCs # 0.0 /100WBC /100W BC Sodium 133 mmol/L L mmol /L (136-145) Potassium 4.2 mmol/L mmol/L (3.5-5.1) Chloride 95 mmol/L L mmol/ L (98-107) Carbon Dioxide 24 mmol/L mmol/L (22-29) Anion Gap 18.2 (5-19) BUN 13 mg/dL mg/dL (6-20) Creatinine 0.5 mg/dL mg/dL (0.5-0.9) GFR Calculation 128.1 mL/min mL/m in (90-130) Glucose 326 mg/dL H mg/dL (65-115) Calculated Osmolal ity 289 mOsm/kg mOsm/ kg (285-295) Calcium 9.6 mg/dL mg/dL (8.5-10.5) Total Bilirubin 0.9 mg/dL mg/dL (0.15-1.2) AST 12 U/L U/L (0-32) ALT 15 U/L U/L (0-33) Alkaline Phosphata se 145 IU/L H IU/L (35-105) Total Protein 8.8 g/dL H g/dL (6.6-8.7) Albumin 4.4 g/dL g/dL (3.5-5.2) Globulin 4.4 g/dL g/dL (1.3-4.6) Lipase 163 U/L H U/L (13-60) Urine Color Yellow (Yellow) Urine Appearance Clear (CLEAR) Urine pH 5 (5-7) Ur Specific Gravit y 1.020 (1.005-1.030) Urine Protein Trace (Negative) Urine Glucose (UA) 4+ H (Normal) Urine Ketones 1+ H (Negative) Urine Blood Neg (Negative) Urine Nitrate Negative (Negative) Urine Bilirubin Neg (Negative) Urine Urobilinogen Norm mg/dL mg/dL (Negative) Ur Leukocyte Rosibel ase Negative (Negative) Urine RBC 0-4 /hpf H /hpf (0-2) Urine WBC 0-4 /hpf H /hpf (0-5) Ur Squamous Epith Cells 0-4 /hpf H /hpf (0-5) Amorphous Sediment Not Reportable Urine Bacteria Trace /hpf /hpf (NONE) Hyaline Casts 5-10 /lpf H /lpf Urine Mucus Trace /hpf /hpf Imaging Data ^: CT Abd/Pel: Radiologist's impression: [facility] [address] [place] [address] CT Scan Report Signed Patient: Soco Reeder Unit #: [id number] : 1965 Age/Sex: 55 / F ADM Date: 04/11/21 Loc: ER Room/Bed: Attending Dr: Ordering Provider/Ordering MD: Leonila Plasencia Date of Service: 04/11/21 Procedure(s): CT abdomen pelvis w con* [id number] Accession Number(s): [id number] Report Number: [id number] WS: [id number] CT ABDOMEN PELVIS TECHNIQUE: Contrast-enhanced CT of the abdomen and pelvis with coronal and sagittal reformatted images. CLINICAL INFORMATION: upper abdominal pain, nausea COMPARISON: CT January 07, 2020 DLP: 1852.[address] scans at [facility] use at least one of these dose optimization techniques: automated exposure control; mA and/or kV adjustment per patient size (includes targeted exams where dose is matched to clinical indication); or iterative reconstruction. FINDINGS: Diffuse fatty infiltration of the liver. Normal portal and splenic vein. Tiny calculus or polyp near the neck of the gallbladder. No gallbladder wall thickening or pericholecystic fluid. Normal GE junction. Gastric rugal thickening with enhancement extending into the duodenum consistent with gastroduodenitis. Lung bases are well aerated. Normal pancreatic parenchymal enhancement. Subtle trace induration about the head of the pancreas similar to the prior examination. Previously described peripancreatic inflammatory stranding has improved. A few prominent lymph nodes in the upper abdomen unchanged from January 07, 2020 likely reactive. Adrenal glands are normal. Normal renal parenchymal enhancement. No hydronephrosis. Normal caliber abdominal aorta. Aortic calcification. Normal sigmoid colon. No evidence of small or large bowel obstruction. CT/CT abdomen pelvis w con* [id number] IMPRESSION: 1. Diffuse fatty infiltration of the liver. 2. Evidence of gastroduodenitis described above. 3. A few reactive lymph nodes in the upper abdomen unchanged from previous. 4. Subtle trace induration about the pancreas similar to previous but slightly improved. Correlation for pancreatitis. No peripancreatic fluid collections. 5. Tiny polyp or calculus near the neck of the gallbladder. No gallbladder wall thickening or pericholecystic fluid. 6. No hydronephrosis in either kidney. 7. No other significant findings. Dictated By: Adrian Salazar MD Signed By: Adrian Salazar MD Signed Date/Time: 04/11/21 1019 DD/ 1008 Discharge Plan Discharge Patient Disposition: Home Clinical Impression: Pancreatitis Qualifiers: Chronicity: acute Pancreatitis type: idiopathic Acute pancreatitis complication: no infection or necrosis Qualified Code(s): K85.00 - Idiopathic acute pancreatitis without necrosis or infection Condition: Stable Prescriptions: New hydrocodone-acetaminophen 5-325 mg tablet 1 tab PO Q4H PRN (Reason: pain) Qty: 20 RF: 0 Zofran 4 mg tablet 4 mg PO Q6H PRN (Reason: nausea and vomiting) Qty: 14 RF: 0 Continued metformin 500 mg tablet 500 mg PO BID Qty: 60 RF: 0 Discontinued tramadol 50 mg tablet 50 mg PO Q6H PRN (Reason: pain) Qty: 30 RF: 0 ciprofloxacin HCl [Cipro] 500 mg tablet 500 mg PO Q12H Qty: 14 RF: 0 Discharge Orders: Discharge ED (Routine); Ordered 04/11/21 Ordered By: Leonila Plasencia Patient Instructions: Pancreatitis (ED), Opioid Safety Activity Restrictions/Additional Instructions: As we discussed please use a stool softener such as Colace if you are taking/requiring your pain medications. Complete liquid diet over the next 48 hours and slowly advance as tolerated with a bland diet. You need to return to the emergency department immediately for worsening or uncontrollable abdominal pain, repetitive episodes of vomiting, fevers, shortness of breath, fast heart rate, no urine output, generally feeling unwell, or any other concerns you may have. Case management will work on getting you set up with a new primary care provider. Coding Level of Care Code ED Rate Analyst for Chg Fwd Exam Comprehensive Documented by User: Emiliano Welsh DO 04/11/21 11:50 HPI - Abdominal Pain General: Chief Complaint: Abdominal Pain Stated Complaint: Pancreatitis Flare Up Time Seen by Provider: 04/11/21 08:30 PFSH ED PFSH: Medical History Cellulitis Diabetes mellitus Poison jaime dermatitis Social History Smoking and tobacco status: never smoked Course Vital Signs: Vital signs: Vital Signs Temperature 98.1 F 04/11/21 08:42 Pulse Rate 87 04/11/21 11:16 Respiratory Rate 16 04/11/21 09:26 Blood Pressure 123/74 04/11/21 11:16 Pulse Oximetry 97 04/11/21 11:16 MDM - Abdominal Pain MDM Narrative: Medical decision making narrative: Reviewed and discussed patient with Leonila Plasencia agree with assessment and plan. Lab Data: Labs: Lab Results 04/11/21 04/11/21 04/11/21 09:19 09:19 09:53 WBC 10.8 10^3/uL H 10 ^3/uL (4.0-10.0) RBC 6.01 10^6/uL H 10 ^6/uL (4.1-5.3) Hgb 17.2 g/dL H g/dL (11.5-15.3) Hct 51.1 % H % (37.0-47.0) MCV 85.0 fl fl (81-99) MCH 28.6 pg pg (28.0-34.0) MCHC 33.7 g/dL g/dL (30.0-36.0) RDW 12.1 % % (12.1-15.1) Plt Count 449 10^3/cmm H 10 ^3/cmm (130-400) MPV 10.1 fL fL (7.4-10.4) Neut % (Auto) 59.6 % % Lymph % (Auto) 32.3 % % [place] % (Auto) 6.0 % % Eos % (Auto) 1.3 % % Baso % (Auto) 0.6 % % Neut # (Auto) 6.46 10^3/uL 10^3 /uL (1.8-7.7) Lymph # (Auto) 3.5 10^3/uL 10^3/ uL (0.8-4.8) [place] # (Auto) 0.7 10^3/uL 10^3/ uL (0.2-0.9) Eos # (Auto) 0.1 10^3/uL 10^3/ uL (0.0-0.8) Baso # (Auto) 0.1 10^3/uL 10^3/ uL (0.0-0.1) Nucleated RBC % (a uto) 0 % % Nucleated RBCs # 0.0 /100WBC /100W BC Sodium 133 mmol/L L mmol /L (136-145) Potassium 4.2 mmol/L mmol/L (3.5-5.1) Chloride 95 mmol/L L mmol/ L (98-107) Carbon Dioxide 24 mmol/L mmol/L (22-29) Anion Gap 18.2 (5-19) BUN 13 mg/dL mg/dL (6-20) Creatinine 0.5 mg/dL mg/dL (0.5-0.9) GFR Calculation 128.1 mL/min mL/m in (90-130) Glucose 326 mg/dL H mg/dL (65-115) Calculated Osmolal ity 289 mOsm/kg mOsm/ kg (285-295) Calcium 9.6 mg/dL mg/dL (8.5-10.5) Total Bilirubin 0.9 mg/dL mg/dL (0.15-1.2) AST 12 U/L U/L (0-32) ALT 15 U/L U/L (0-33) Alkaline Phosphata se 145 IU/L H IU/L (35-105) Total Protein 8.8 g/dL H g/dL (6.6-8.7) Albumin 4.4 g/dL g/dL (3.5-5.2) Globulin 4.4 g/dL g/dL (1.3-4.6) Lipase 163 U/L H U/L (13-60) Urine Color Yellow (Yellow) Urine Appearance Clear (CLEAR) Urine pH 5 (5-7) Ur Specific Gravit y 1.020 (1.005-1.030) Urine Protein Trace (Negative) Urine Glucose (UA) 4+ H (Normal) Urine Ketones 1+ H (Negative) Urine Blood Neg (Negative) Urine Nitrate Negative (Negative) Urine Bilirubin Neg (Negative) Urine Urobilinogen Norm mg/dL mg/dL (Negative) Ur Leukocyte Rosibel ase Negative (Negative) Urine RBC 0-4 /hpf H /hpf (0-2) Urine WBC 0-4 /hpf H /hpf (0-5) Ur Squamous Epith Cells 0-4 /hpf H /hpf (0-5) Amorphous Sediment Not Reportable Urine Bacteria Trace /hpf /hpf (NONE) Hyaline Casts 5-10 /lpf H /lpf Urine Mucus Trace /hpf /hpf Discharge Plan Discharge Patient Disposition: Home Clinical Impression: Pancreatitis Qualifiers: Chronicity: acute Pancreatitis type: idiopathic Acute pancreatitis complication: no infection or necrosis Qualified Code(s): K85.00 - Idiopathic acute pancreatitis without necrosis or infection Condition: Stable Prescriptions: New hydrocodone-acetaminophen 5-325 mg tablet 1 tab PO Q4H PRN (Reason: pain) Qty: 20 RF: 0 Zofran 4 mg tablet 4 mg PO Q6H PRN (Reason: nausea and vomiting) Qty: 14 RF: 0 Continued metformin 500 mg tablet 500 mg PO BID Qty: 60 RF: 0 Discontinued tramadol 50 mg tablet 50 mg PO Q6H PRN (Reason: pain) Qty: 30 RF: 0 ciprofloxacin HCl [Cipro] 500 mg tablet 500 mg PO Q12H Qty: 14 RF: 0 Discharge Orders: Discharge ED (Routine); Ordered 04/11/21 Ordered By: Leonila Plasencia Patient Instructions: Pancreatitis (ED), Opioid Safety Activity Restrictions/Additional Instructions: As we discussed please use a stool softener such as Colace if you are taking/requiring your pain medications. Complete liquid diet over the next 48 hours and slowly advance as tolerated with a bland diet. You need to return to the emergency department immediately for worsening or uncontrollable abdominal pain, repetitive episodes of vomiting, fevers, shortness of breath, fast heart rate, no urine output, generally feeling unwell, or any other concerns you may have. Case management will work on getting you set up with a new primary care provider. Coding Level of Care Code ED Rate Analyst for Lexi Fwd Exam Comprehensive
[2021-04-11 09:26] VITALS: BP 135/72; PULSE 78; RESP 16; O2SAT 98
[2021-04-11 09:28] LABS: Basophils # 0.1 10^3/uL (0.0-0.1); Basophils % 0.6 %; Eosinophils # 0.1 10^3/uL (0.0-0.8); Eosinophils % 1.3 %; Hematocrit 51.1 % (37.0-47.0); Hemoglobin 17.2 g/dL (11.5-15.3); Lymphocytes # 3.5 10^3/uL (0.8-4.8); Lymphocytes % 32.3 %; Mean Corpuscular HGB Conc 33.7 g/dL (30.0-36.0); Mean Corpuscular Hemoglobin 28.6 pg (28.0-34.0); Mean Platelet Volume 10.1 fL (7.4-10.4); Monocytes # 0.7 10^3/uL (0.2-0.9); Neutrophils # 6.46 10^3/uL (1.8-7.7); Neutrophils % 59.6 %; Nucleated Red Blood Cells % 0 %; Platelet Count 449 10^3/cmm (130-400); Red Blood Count 6.01 10^6/uL (4.1-5.3); Red Cell Distribution Width 12.1 % (12.1-15.1); White Blood Count 10.8 10^3/uL (4.0-10.0)
[2021-04-11] MEDS: ondansetron 2 mg/ML SDV 2 mL 4 MG IVP (09:28)
[2021-04-11] MEDS: morphine 4 mg/mL SDV 1 mL IVP ×2 (09:28→11:09)
[2021-04-11] MEDS: sodium chloride 0.9% 1,000 ML 999 ML IV (09:29)
[2021-04-11 09:44] LABS: Alanine Aminotransferase 15 U/L (0-33); Albumin Level 4.4 g/dL (3.5-5.2); Alkaline Phosphatase 145 IU/L (35-105); Anion Gap 18.2 (5-19); Aspartate Amino Transferase 12 U/L (0-32); Blood Urea Nitrogen 13 mg/dL (6-20); Calcium 9.6 mg/dL (8.5-10.5); Carbon Dioxide 24 mmol/L (22-29); Chloride 95 mmol/L (98-107); Globulin 4.4 g/dL (1.3-4.6); Glomerular Filtration Rate 128.1 mL/min (90-130); Glucose 326 mg/dL (65-115); Lipase 163 U/L (13-60); Osmolality Calculated 289 mOsm/kg (285-295); Potassium 4.2 mmol/L (3.5-5.1); Sodium 133 mmol/L (136-145); Total Bilirubin 0.9 mg/dL (0.15-1.2); Total Protein 8.8 g/dL (6.6-8.7)
--- NOTE | 2021-04-11 09:46 | CT_ITS ---
WS: [id number] CT ABDOMEN PELVIS TECHNIQUE: Contrast-enhanced CT of the abdomen and pelvis with coronal and sagittal reformatted image s. CLINICAL INFORMATION: upper abdominal pain, nausea COMPARISON: CT January 07, 2020 DLP: 1852.[address] scans at [facility] use at least one of these dose optimization techniques: automated e xposure control; mA and/or kV adjustment per patient size (includes targeted exams where dose is matc hed to clinical indication); or iterative reconstruction. FINDINGS: Diffuse fatty infiltration of the liver. Normal portal and splenic vein. Tiny calculus or polyp near the neck of the gallbladder. No gallbladder wall thickening or pericholecystic fluid. Normal GE junct ion. Gastric rugal thickening with enhancement extending into the duodenum consistent with gastroduod enitis. Lung bases are well aerated. Normal pancreatic parenchymal enhancement. Subtle trace indurati on about the head of the pancreas similar to the prior examination. Previously described peripancreat ic inflammatory stranding has improved. A few prominent lymph nodes in the upper abdomen unchanged fr om January 07, 2020 likely reactive. Adrenal glands are normal. Normal renal parenchymal enhancement. No hydronephrosis. Normal caliber ab dominal aorta. Aortic calcification. Normal sigmoid colon. No evidence of small or large bowel obstru ction. CT/CT abdomen pelvis w con* [id number] IMPRESSION: 1. Diffuse fatty infiltration of the liver. 2. Evidence of gastroduodenitis described above. 3. A few reactive lymph nodes in the upper abdomen unchanged from previous. 4. Subtle trace induration about the pancreas similar to previous but slightly improved. Correlation for pancreatitis. No peripancreatic fluid collections. 5. Tiny polyp or calculus near the neck of the gallbladder. No gallbladder wal l thickening or pericholecystic fluid. 6. No hydronephrosis in either kidney. 7. No other significant findings.
[2021-04-11] MEDS: iohexol 300 mg/mL 100 mL Btl IV (09:56)
[2021-04-11 10:24] LABS: Add Urine Microscopic? YES; Bilirubin Urine Neg (Negative); Blood Urine Neg (Negative); Glucose Urine UA 4+ (Normal); Ketones Urine 1+ (Negative); Leukocyte Esterase Urine Negative (Negative); Nitrate Urine Negative (Negative); Protein Urine Trace (Negative); Urine Appearance Clear (CLEAR); Urine Color Yellow (Yellow); Urobilinogen Urine Norm (Negative); pH Urine 5 (5-7)
[2021-04-11 10:29] LABS: Add Urine Culture? No; Bacteria Urine TRACE /hpf; Mucus Urine TRACE /hpf; RBC Urine 0-4 /hpf (0-2); Squamous Epithelial Cell Urine 0-4 /hpf (0-5); WBC Urine 0-4 /hpf (0-5)
[2021-04-11] MEDS: metoclopramide 5 mg/mL SDV 2 mL IVP (11:09)
[2021-04-11 11:16] VITALS: BP 123/74; PULSE 87; O2SAT 97
--- NOTE | 2021-04-15 11:57 | DCPLANNER ---
partner alliance manager had message to speak with patient about a primary care physician. partner alliance manager unable to speak with patient at this time or leave a voicemail for patient.
== END 2021-04-11 11:20 | disposition home or self-care (01) ==
PROVIDERS: Emergency Provider Physician Assistant
DX: K85.00 Idiopathic acute pancreatitis without necrosis or infection (principal); Z79.84 Long term (current) use of oral hypoglycemic drugs; E11.9 Type 2 diabetes mellitus without complications
CPT/HCPCS: 74177; 80053; 81001; 83690; 85025; 96361; 96374; 96375; 96376; 99285; J2270; J2405; J2765; J7030; Q9967

== ENCOUNTER 2021-04-17 08:35 | Emergency (ER) | payer MEDICAID, SELFPAY ==
--- NOTE | 2021-04-17 08:41 | ECG_ITS ---
[facility] Test Date: 2021-04-17 Pat Name: Soco Reeder Department: Room: Gender: Female [employer]: : 1965 Requested By: Emiliano Hurt Order Number: [id number] Gopal MD: Rosa Heath M.D. Measurements Intervals [place] Rate: 76 P: 31 MA: 131 QRS: 46 QRSD: 85 T: 49 QT: 374 QTc: 423 Interpretive Statements SINUS RHYTHM NONSPECIFIC T-WAVE ABNORMALITY No previous ECG available for comparison Electronically Signed On 04-18-2021 7:02:00 CDT by Rosa Heath M.D. [id number]
--- NOTE | 2021-04-17 08:41 | CT_ITS ---
WS: [id number] CT ABDOMEN AND PELVIS WITH CONTRAST HISTORY: Abdominal pain. History of pancreatitis. TECHNIQUE: Imaging performed of the abdomen and pelvis with IV contrast. Single phase imaging of the abdomen. Coronal and sagittal reformats are submitted. All CT scans at [facility] use at [address] one of these dose optimization techniques: automated exposure control; mA and/or kV adjustment per patient size (includes targeted exams where dose is matched to clinical indication); or iterative re construction. IV CONTRAST: Omnipaque 300; 95 mL IV. Oral contrast: No DLP: 1628.27 mGy.cm COMPARISON: 04/11/2021 Lower thorax: Lung bases are clear. Heart is normal size. Small hiatal hernia. Liver/biliary system: Normal size with no intrahepatic dilatation. Gallbladder: Normal. No gallstones or wall thickening. No pericholecystic fluid. Pancreas: Normal size pancreas and pancreatic duct. No adjacent inflammation. Spleen: Normal size spleen. No mass or infarct. Adrenal glands: Normal. Right kidney: Normal. Left kidney: Normal. Aorta: Mild atherosclerosis aorta. No aneurysm. Lymphadenopathy: No significant adenopathy. Free fluid: None. GI tract: Normal appendix. No GI tract obstruction. No mucosal thickening or edema. Numerous divertic tate with wall thickening in the sigmoid colon. No acute diverticulitis. Abdominal wall: Small umbilical hernia. Pelvis: Uterus is slightly elongated and slightly lobular. May be a fibroid at the fundus. No change in the configuration over multiple prior studies. No fluid or adnexal masses. Bones: Unremarkable. CT/CT abdomen pelvis w con* [id number] IMPRESSION: 1. No evidence for acute pancreatitis. 2. Sigmoid diverticulosis without acute diverticulitis. 3. Normal appendix. 4. No renal obstruction.
--- NOTE | 2021-04-17 08:42 | ED_ITS ---
HPI - Abdominal Pain General: Chief Complaint: Abdominal Pain Stated Complaint: SEVERE ABD PAINS Time Seen by Provider: 04/17/21 08:38 History of Present Illness: HPI narrative: 55-year-old female presents emergency room complaining of abdominal pain intermittently for 1 week. She previously had pancreatitis in the past. She does have a lot of reflux start of her is [id number] antacid medications with no relief of symptoms. She denies any shortness of breath or any chest pain. MD elicited complaint: abdominal pain Onset (ago): day(s) (7) Pain Consistency: intermittent Location: Epigastric Severity: moderate Quality: cramping Radiation: none Migration to: no migration Exacerbating factors: nothing Relieving factors: nothing Associated Symptoms: Reports nausea and poor appetite; Denies anorexia, belching, bloating, change in bowel habits, change in stool character, chills, coffee ground emesis, constipation, GI cramping, diarrhea, dyspepsia, dysuria, excessive flatus, fever(s), heartburn, hematochezia, hematuria, hematemesis, fecal incontinence, loose stools, melena, syncope and vo miting Review of Systems Const: Denies: fever(s) or chills ENMT: Denies: throat pain, ear or mastoid pain, nasal discharge or nasal congestion Card: Denies: syncope Resp: Denies: dyspnea, productive cough or non-productive cough GI: Reports: nausea; Denies: vomiting, hematemesis, coffee ground emesis, heartburn, diarrhea, constipation, bloating, GI cramping, belching, excessive flatus, fecal incontinence, change in bowel habits, change in stool character, hematochezia or melena : Denies: dysuria or hematuria Skin/Breast: Denies: rash or pruritus PFSH ED PFSH: Medical History Cellulitis Diabetes mellitus Poison jaime dermatitis Social History Smoking and tobacco status: never smoked Physical Exam Const: COMMON NORMALS: no acute distress GENERAL APPEARANCE: cooperative and comfortable ORIENTATION/CONSCIOUSNESS: Yes awake, Yes oriented to person, Yes oriented to place and Yes oriented to time HENMT: COMMON NORMALS: normocephalic, atraumatic and hearing grossly normal bilaterally HEAD & SCALP: normocephalic and atraumatic Neck/C-Spine: COMMON NORMALS: no JVD Resp: COMMON NORMALS: normal respiratory effort, No retractions, No use of accessory muscles and clear to auscultation bilaterally AUSCULTATION: clear to auscultation bilaterally Cardio: COMMON NORMALS: no JVD, regular rate, regular rhythm and No murmurs present (Cardio) RATE: regular rate RHYTHM: regular rhythm GI: COMMON NORMALS: Soft to palpation and No hepatosplenomegaly present AUSCULTATION: Yes normoactive bowel sounds PALPATION: Yes Soft to palpation, No Tenderness to palpation present (GI), No Guarding due to palpation present (GI) and Yes No hepatosplenomegaly present Extremity: COMMON NORMALS: normal to inspection, capillary refill normal, no clubbing, cyanosis or edema, no calf tenderness and no pedal edema Neuro: SENSORIUM/ORIENTATION: Yes oriented to person, Yes oriented to place and Yes oriented to time Skin: COMMON NORMALS: no rashes or lesions noted GENERAL SKIN EXAM: no rashes or lesions noted Course Vital Signs: Vital signs: Vital Signs Temperature 98.7 F 04/17/21 08:49 Pulse Rate 66 04/17/21 10:32 Respiratory Rate 17 04/17/21 10:32 Blood Pressure 146/91 04/17/21 10:32 Pulse Oximetry 97 04/17/21 10:32 MDM - Abdominal Pain MDM Narrative: Medical decision making narrative: Labs and imaging reviewed. However recommend she decrease her Metformin to once daily. Also start on omeprazole and famotidine follow-up with her primary care doctor. If is worsening problems. Lab Data: Labs: Lab Results 04/17/21 04/17/21 04/17/21 09:03 09:07 09:07 WBC 9.8 10^3/uL 10^3/ uL (4.0-10.0) RBC 5.93 10^6/uL H 10 ^6/uL (4.1-5.3) Hgb 17.0 g/dL H g/dL (11.5-15.3) Hct 50.2 % H % (37.0-47.0) MCV 84.7 fl fl (81-99) MCH 28.7 pg pg (28.0-34.0) MCHC 33.9 g/dL g/dL (30.0-36.0) RDW 12.0 % L % (12.1-15.1) Plt Count 482 10^3/cmm H 10 ^3/cmm (130-400) MPV 10.1 fL fL (7.4-10.4) Neut % (Auto) 55.3 % % Lymph % (Auto) 36.7 % % [place] % (Auto) 5.7 % % Eos % (Auto) 1.5 % % Baso % (Auto) 0.6 % % Neut # (Auto) 5.41 10^3/uL 10^3 /uL (1.8-7.7) Lymph # (Auto) 3.6 10^3/uL 10^3/ uL (0.8-4.8) [place] # (Auto) 0.6 10^3/uL 10^3/ uL (0.2-0.9) Eos # (Auto) 0.2 10^3/uL 10^3/ uL (0.0-0.8) Baso # (Auto) 0.1 10^3/uL 10^3/ uL (0.0-0.1) Nucleated RBC % (a uto) 0 % % Nucleated RBCs # 0.0 /100WBC /100W BC Sodium 134 mmol/L L mmol /L (136-145) Potassium 4.3 mmol/L mmol/L (3.5-5.1) Chloride 95 mmol/L L mmol/ L (98-107) Carbon Dioxide 26 mmol/L mmol/L (22-29) Anion Gap 17.3 (5-19) BUN 9 mg/dL mg/dL (6-20) Creatinine 0.5 mg/dL mg/dL (0.5-0.9) GFR Calculation 128.1 mL/min mL/m in (90-130) Glucose 325 mg/dL H mg/dL (65-115) Calculated Osmolal ity 289 mOsm/kg mOsm/ kg (285-295) Calcium 9.8 mg/dL mg/dL (8.5-10.5) Total Bilirubin 0.7 mg/dL mg/dL (0.15-1.2) AST 14 U/L U/L (0-32) ALT 12 U/L U/L (0-33) Alkaline Phosphata se 123 IU/L H IU/L (35-105) Total Protein 8.3 g/dL g/dL (6.6-8.7) Albumin 4.6 g/dL g/dL (3.5-5.2) Globulin 3.7 g/dL g/dL (1.3-4.6) Lipase 92 U/L H U/L (13-60) Urine Color Yellow (Yellow) Urine Appearance Clear (CLEAR) Urine pH 5 (5-7) Ur Specific Gravit y 1.010 (1.005-1.030) Urine Protein Neg (Negative) Urine Glucose (UA) 4+ H (Normal) Urine Ketones Negative (Negative) Urine Blood Neg (Negative) Urine Nitrate Negative (Negative) Urine Bilirubin Neg (Negative) Urine Urobilinogen Norm mg/dL mg/dL (Negative) Ur Leukocyte Rosibel ase Negative (Negative) Discharge Plan Discharge Patient Disposition: Home Clinical Impression: Continuous epigastric pain Uncontrolled diabetes mellitus Qualifiers: Diabetes mellitus type: type 2 Glycemic state: with hyperglycemia Qualified Code(s): E11.65 - Type 2 diabetes mellitus with hyperglycemia Condition: Stable Prescriptions: New omeprazole 20 mg capsule,delayed release(DR/EC) 20 mg PO DAILY 28 Days Qty: 28 RF: 0 famotidine 20 mg tablet 20 mg PO BID 28 Days Qty: 56 RF: 0 No Action hydrocodone-acetaminophen 5-325 mg tablet 1 tab PO Q4H PRN (Reason: pain) Qty: 20 RF: 0 Zofran 4 mg tablet 4 mg PO Q6H PRN (Reason: nausea and vomiting) Qty: 14 RF: 0 metformin 500 mg tablet 500 mg PO BID Qty: 60 RF: 0 Discharge Orders: Discharge ED (Routine); Ordered 04/17/21 Ordered By: Leonila Plasencia Patient Instructions: Diet for Stomach Ulcers and Gastritis (ED), Abdominal Pain (ED) Activity Restrictions/Additional Instructions: Please refer to the dietary instructions for acid reflux/GERD. Begin medications as directed to see if this helps your abdominal discomfort. Case management should contact you to set you up with a primary care provider soon. Continue your Metformin as prescribed. Coding Level of Care Code ED Stonework Tracer for Lexi Vazquez
[2021-04-17 08:49] VITALS: BP 151/85; PULSE 82; RESP 19; TEMP 37.1; O2SAT 96; BMI 28.9
--- NOTE | 2021-04-17 08:58 | W.ED.ABDPA2 ---
Documented by User: KONSTANTIN Porter 04/17/21 10:37 HPI - Abdominal Pain General: Chief Complaint: Abdominal Pain Stated Complaint: SEVERE ABD PAINS Time Seen by Provider: 04/17/21 08:38 Source: patient and family Mode of arrival: ambulatory Limitations: no limitations History of Present Illness: HPI narrative: Patient is a nice 55-year-old female well-known to me here for upper abdominal pain. Patient was seen at our facility approximately 6 days ago and diagnosed with a mild pancreatitis. She tells me her pain was being controlled at home with oral hydrocodone. She states she initially thought she was getting better but approximately 48 hours ago she ran out of her pain medications and feels like now her pain has progressively worsened. She has had a few episodes of non-bloody emesis. She is having normal bowel movements. She is not running fevers. She states her pain today is similar to the pain she was experiencing 6 days ago during her visit. MD elicited complaint: abdominal pain Pertinent past history: other (pancreatitis) Onset (ago): day(s) Pain Consistency: constant Location: Epigastric and LUQ Severity: severe Pain scale (0-10): 8 Radiation: back Migration to: no migration Exacerbating factors: eating Relieving factors: other (pain medication) Associated Symptoms: Reports nausea and vomiting; Denies chills, constipation, diarrhea, dysuria, fever(s), hematochezia, hematemesis, melena and syncope Review of Systems Const: Denies: fever(s), chills, body aches, fatigue or malaise Card: Denies: chest pain, palpitations, irregular heart rhythm, edema, swelling of feet/ankles, lightheadedness, syncope, pre-syncope, dyspnea on exertion or orthopnea Resp: Denies: dyspnea or chest congestion GI: Reports: abdominal pain, nausea and vomiting; Denies: hematemesis, diarrhea, constipation, hematochezia or melena : Denies: flank pain, difficulty voiding, dysuria or urinary urgency Musc: Denies: neck pain, back pain, extremity pain or joint pain Skin/Breast: Denies: rash Neuro: Denies: headache(s), numbness in extremities, weakness in extremities, sensory changes, difficulty walking or dizziness PFSH ED PFSH: Medical History Cellulitis Diabetes mellitus Poison jaime dermatitis Social History Smoking and tobacco status: never smoked Physical Exam Const: COMMON NORMALS: no acute distress, patient oriented x3, no limitations and alert GENERAL APPEARANCE: cooperative NUTRITIONAL APPEARANCE: overweight ORIENTATION/CONSCIOUSNESS: Yes awake, Yes oriented to person, Yes oriented to place and Yes oriented to time HENMT: COMMON NORMALS: normocephalic and atraumatic HEAD & SCALP: normal to inspection, normocephalic and atraumatic Chest: COMMONS NORMALS: normal inspection of the chest and normal palpation of entire chest wall Resp: COMMON NORMALS: normal respiratory effort and clear to auscultation bilaterally AUSCULTATION: clear to auscultation bilaterally Cardio: COMMON NORMALS: regular rate and regular rhythm RATE: regular rate RHYTHM: regular rhythm GI: COMMON NORMALS: Normal to inspection, nondistended, normoactive bowel sounds present, Soft to palpation, No hepatosplenomegaly present and no masses INSPECTION: Yes normal to inspection PALPATION: Yes Soft to palpation, Yes Tenderness to palpation present (GI) (throughout upper abdomen but mainly to epigastric/LUQ) and Yes No hepatosplenomegaly present : COMMON NORMALS: Yes no CVA tenderness BLADDER/KIDNEY EXAM: Yes no CVA tenderness Back/Pelvis: COMMON NORMALS: no CVA tenderness Extremity: COMMON NORMALS: normal to inspection, no calf tenderness and no pedal edema Neuro: NAHOMY COMA SCALE: document GCS findings [place] coma scale eye opening: Spontaneous [place] coma scale verbal response: Orientated [place] coma scale motor response: [place]bey commands [place] coma scale total score: 15 COMMON NORMALS: patient oriented x3 SENSORIUM/ORIENTATION: Yes alert, Yes oriented to person, Yes oriented to place and Yes oriented to time Skin: COMMON NORMALS: no rashes or lesions noted GENERAL SKIN EXAM: no rashes or lesions noted TRAUMA: no lacerations or abrasions Course Vital Signs: Vital signs: Vital Signs Temperature 98.7 F 04/17/21 08:49 Pulse Rate 66 04/17/21 10:32 Respiratory Rate 17 04/17/21 10:32 Blood Pressure 146/91 04/17/21 10:32 Pulse Oximetry 97 04/17/21 10:32 MDM - Abdominal Pain MDM Narrative: Medical decision making narrative: Patient appears in no acute distress. Her vital signs are stable. Lipase is lower than her previous visit (went from 160s to 90s). Her CT scan is normal. She still needs better control of her glucose. She has not been contacted by case management yet for PCP follow-up (spoke to CM and she will go speak to patient in room). She has been taking her Metformin that I prescribed on her last visit. After talking to patient further she states she is supposed to be taking omeprazole for acid reflux/GERD but has not been. Will write her for this and place her on H2 to see if this helps her abdominal discomfort. Pain improved with GI cocktail here. Lab Data: Labs: Lab Results 04/17/21 04/17/21 04/17/21 09:03 09:07 09:07 WBC 9.8 10^3/uL 10^3/ uL (4.0-10.0) RBC 5.93 10^6/uL H 10 ^6/uL (4.1-5.3) Hgb 17.0 g/dL H g/dL (11.5-15.3) Hct 50.2 % H % (37.0-47.0) MCV 84.7 fl fl (81-99) MCH 28.7 pg pg (28.0-34.0) MCHC 33.9 g/dL g/dL (30.0-36.0) RDW 12.0 % L % (12.1-15.1) Plt Count 482 10^3/cmm H 10 ^3/cmm (130-400) MPV 10.1 fL fL (7.4-10.4) Neut % (Auto) 55.3 % % Lymph % (Auto) 36.7 % % [place] % (Auto) 5.7 % % Eos % (Auto) 1.5 % % Baso % (Auto) 0.6 % % Neut # (Auto) 5.41 10^3/uL 10^3 /uL (1.8-7.7) Lymph # (Auto) 3.6 10^3/uL 10^3/ uL (0.8-4.8) [place] # (Auto) 0.6 10^3/uL 10^3/ uL (0.2-0.9) Eos # (Auto) 0.2 10^3/uL 10^3/ uL (0.0-0.8) Baso # (Auto) 0.1 10^3/uL 10^3/ uL (0.0-0.1) Nucleated RBC % (a uto) 0 % % Nucleated RBCs # 0.0 /100WBC /100W BC Sodium 134 mmol/L L mmol /L (136-145) Potassium 4.3 mmol/L mmol/L (3.5-5.1) Chloride 95 mmol/L L mmol/ L (98-107) Carbon Dioxide 26 mmol/L mmol/L (22-29) Anion Gap 17.3 (5-19) BUN 9 mg/dL mg/dL (6-20) Creatinine 0.5 mg/dL mg/dL (0.5-0.9) GFR Calculation 128.1 mL/min mL/m in (90-130) Glucose 325 mg/dL H mg/dL (65-115) Calculated Osmolal ity 289 mOsm/kg mOsm/ kg (285-295) Calcium 9.8 mg/dL mg/dL (8.5-10.5) Total Bilirubin 0.7 mg/dL mg/dL (0.15-1.2) AST 14 U/L U/L (0-32) ALT 12 U/L U/L (0-33) Alkaline Phosphata se 123 IU/L H IU/L (35-105) Total Protein 8.3 g/dL g/dL (6.6-8.7) Albumin 4.6 g/dL g/dL (3.5-5.2) Globulin 3.7 g/dL g/dL (1.3-4.6) Lipase 92 U/L H U/L (13-60) Urine Color Yellow (Yellow) Urine Appearance Clear (CLEAR) Urine pH 5 (5-7) Ur Specific Gravit y 1.010 (1.005-1.030) Urine Protein Neg (Negative) Urine Glucose (UA) 4+ H (Normal) Urine Ketones Negative (Negative) Urine Blood Neg (Negative) Urine Nitrate Negative (Negative) Urine Bilirubin Neg (Negative) Urine Urobilinogen Norm mg/dL mg/dL (Negative) Ur Leukocyte Rosibel ase Negative (Negative) Imaging Data ^: CT Abd/Pel: Radiologist's impression: [employer] [address] [address] [address] Scan Report Signed Patient: Soco Reeder Unit #: [id number] : 1965 Age/Sex: 55 / F ADM Date: 04/17/21 Loc: ER Room/Bed: Attending Dr: Ordering Provider/Ordering MD: Emiliano Welsh DO Date of Service: 04/17/21 Procedure(s): CT abdomen pelvis w con* [id number] Accession Number(s): [id number] Report Number: [id number] WS: [id number] CT ABDOMEN AND PELVIS WITH CONTRAST HISTORY: Abdominal pain. History of pancreatitis. TECHNIQUE: Imaging performed of the abdomen and pelvis with IV contrast. Single phase imaging of the abdomen. Coronal and sagittal reformats are submitted. All CT scans at [facility] use at least one of these dose optimization techniques: automated exposure control; mA and/or kV adjustment per patient size (includes targeted exams where dose is matched to clinical indication); or iterative reconstruction. IV CONTRAST: Omnipaque 300; 95 mL IV. Oral contrast: No DLP: 1628.27 mGy.cm COMPARISON: 04/11/2021 Lower thorax: Lung bases are clear. Heart is normal size. Small hiatal hernia. Liver/biliary system: Normal size with no intrahepatic dilatation. Gallbladder: Normal. No gallstones or wall thickening. No pericholecystic fluid. Pancreas: Normal size pancreas and pancreatic duct. No adjacent inflammation. Spleen: Normal size spleen. No mass or infarct. Adrenal glands: Normal. Right kidney: Normal. Left kidney: Normal. Aorta: Mild atherosclerosis aorta. No aneurysm. Lymphadenopathy: No significant adenopathy. Free fluid: None. GI tract: Normal appendix. No GI tract obstruction. No mucosal thickening or edema. Numerous diverticula with wall thickening in the sigmoid colon. No acute diverticulitis. Abdominal wall: Small umbilical hernia. Pelvis: Uterus is slightly elongated and slightly lobular. May be a fibroid at the fundus. No change in the configuration over multiple prior studies. No fluid or adnexal masses. Bones: Unremarkable. CT/CT abdomen pelvis w con* [id number] IMPRESSION: 1. No evidence for acute pancreatitis. 2. Sigmoid diverticulosis without acute diverticulitis. 3. Normal appendix. 4. No renal obstruction. Dictated By: Danii Wilson DO Signed By: Danii Wilson DO Signed Date/Time: 04/17/21941 DD/ 5 Discharge Plan Discharge Patient Disposition: Home Clinical Impression: Continuous epigastric pain Uncontrolled diabetes mellitus Qualifiers: Diabetes mellitus type: type 2 Glycemic state: with hyperglycemia Qualified Code(s): E11.65 - Type 2 diabetes mellitus with hyperglycemia Condition: Stable Prescriptions: New omeprazole 20 mg capsule,delayed release(DR/EC) 20 mg PO DAILY 28 Days Qty: 28 RF: 0 famotidine 20 mg tablet 20 mg PO BID 28 Days Qty: 56 RF: 0 No Action hydrocodone-acetaminophen 5-325 mg tablet 1 tab PO Q4H PRN (Reason: pain) Qty: 20 RF: 0 Zofran 4 mg tablet 4 mg PO Q6H PRN (Reason: nausea and vomiting) Qty: 14 RF: 0 metformin 500 mg tablet 500 mg PO BID Qty: 60 RF: 0 Discharge Orders: Discharge ED (Routine); Ordered 04/17/21 Ordered By: Leonila Plasencia Patient Instructions: Diet for Stomach Ulcers and Gastritis (ED), Abdominal Pain (ED) Activity Restrictions/Additional Instructions: Please refer to the dietary instructions for acid reflux/GERD. Begin medications as directed to see if this helps your abdominal discomfort. Case management should contact you to set you up with a primary care provider soon. Continue your Metformin as prescribed. Coding Level of Care Code ED Qualitative Executive Researcher for Chg Fwd Exam Comprehensive Documented by User: Emiliano Welsh DO 04/21/21 06:47 HPI - Abdominal Pain General: Chief Complaint: Abdominal Pain Stated Complaint: SEVERE ABD PAINS Time Seen by Provider: 04/17/21 08:38 PFSH ED PFSH: Medical History Cellulitis Diabetes mellitus Poison jaime dermatitis Social History Smoking and tobacco status: never smoked Course Vital Signs: Vital signs: Vital Signs Temperature 98.7 F 04/17/21 08:49 Pulse Rate 66 04/17/21 10:32 Respiratory Rate 17 04/17/21 10:32 Blood Pressure 146/91 04/17/21 10:32 Pulse Oximetry 97 04/17/21 10:32 MDM - Abdominal Pain MDM Narrative: Medical decision making narrative: Reviewed chart agree with assessment and plan Lab Data: Labs: Lab Results 04/17/21 04/17/21 04/17/21 09:03 09:07 09:07 WBC 9.8 10^3/uL 10^3/ uL (4.0-10.0) RBC 5.93 10^6/uL H 10 ^6/uL (4.1-5.3) Hgb 17.0 g/dL H g/dL (11.5-15.3) Hct 50.2 % H % (37.0-47.0) MCV 84.7 fl fl (81-99) MCH 28.7 pg pg (28.0-34.0) MCHC 33.9 g/dL g/dL (30.0-36.0) RDW 12.0 % L % (12.1-15.1) Plt Count 482 10^3/cmm H 10 ^3/cmm (130-400) MPV 10.1 fL fL (7.4-10.4) Neut % (Auto) 55.3 % % Lymph % (Auto) 36.7 % % [place] % (Auto) 5.7 % % Eos % (Auto) 1.5 % % Baso % (Auto) 0.6 % % Neut # (Auto) 5.41 10^3/uL 10^3 /uL (1.8-7.7) Lymph # (Auto) 3.6 10^3/uL 10^3/ uL (0.8-4.8) [place] # (Auto) 0.6 10^3/uL 10^3/ uL (0.2-0.9) Eos # (Auto) 0.2 10^3/uL 10^3/ uL (0.0-0.8) Baso # (Auto) 0.1 10^3/uL 10^3/ uL (0.0-0.1) Nucleated RBC % (a uto) 0 % % Nucleated RBCs # 0.0 /100WBC /100W BC Sodium 134 mmol/L L mmol /L (136-145) Potassium 4.3 mmol/L mmol/L (3.5-5.1) Chloride 95 mmol/L L mmol/ L (98-107) Carbon Dioxide 26 mmol/L mmol/L (22-29) Anion Gap 17.3 (5-19) BUN 9 mg/dL mg/dL (6-20) Creatinine 0.5 mg/dL mg/dL (0.5-0.9) GFR Calculation 128.1 mL/min mL/m in (90-130) Glucose 325 mg/dL H mg/dL (65-115) Calculated Osmolal ity 289 mOsm/kg mOsm/ kg (285-295) Calcium 9.8 mg/dL mg/dL (8.5-10.5) Total Bilirubin 0.7 mg/dL mg/dL (0.15-1.2) AST 14 U/L U/L (0-32) ALT 12 U/L U/L (0-33) Alkaline Phosphata se 123 IU/L H IU/L (35-105) Total Protein 8.3 g/dL g/dL (6.6-8.7) Albumin 4.6 g/dL g/dL (3.5-5.2) Globulin 3.7 g/dL g/dL (1.3-4.6) Lipase 92 U/L H U/L (13-60) Urine Color Yellow (Yellow) Urine Appearance Clear (CLEAR) Urine pH 5 (5-7) Ur Specific Gravit y 1.010 (1.005-1.030) Urine Protein Neg (Negative) Urine Glucose (UA) 4+ H (Normal) Urine Ketones Negative (Negative) Urine Blood Neg (Negative) Urine Nitrate Negative (Negative) Urine Bilirubin Neg (Negative) Urine Urobilinogen Norm mg/dL mg/dL (Negative) Ur Leukocyte Rosibel ase Negative (Negative) Discharge Plan Discharge Patient Disposition: Home Clinical Impression: Continuous epigastric pain Uncontrolled diabetes mellitus Qualifiers: Diabetes mellitus type: type 2 Glycemic state: with hyperglycemia Qualified Code(s): E11.65 - Type 2 diabetes mellitus with hyperglycemia Condition: Stable Prescriptions: New omeprazole 20 mg capsule,delayed release(DR/EC) 20 mg PO DAILY 28 Days Qty: 28 RF: 0 famotidine 20 mg tablet 20 mg PO BID 28 Days Qty: 56 RF: 0 No Action hydrocodone-acetaminophen 5-325 mg tablet 1 tab PO Q4H PRN (Reason: pain) Qty: 20 RF: 0 Zofran 4 mg tablet 4 mg PO Q6H PRN (Reason: nausea and vomiting) Qty: 14 RF: 0 metformin 500 mg tablet 500 mg PO BID Qty: 60 RF: 0 Discharge Orders: Discharge ED (Routine); Ordered 04/17/21 Ordered By: Leonila Plasencia Patient Instructions: Diet for Stomach Ulcers and Gastritis (ED), Abdominal Pain (ED) Activity Restrictions/Additional Instructions: Please refer to the dietary instructions for acid reflux/GERD. Begin medications as directed to see if this helps your abdominal discomfort. Case management should contact you to set you up with a primary care provider soon. Continue your Metformin as prescribed. Coding Level of Care Code ED Qualitative Executive Researcher for Lexi Fwd Exam Comprehensive
[2021-04-17] MEDS: sodium chloride 0.9% 1,000 ML 999 ML IV (09:13)
[2021-04-17] MEDS: ondansetron 2 mg/ML SDV 2 mL 4 MG IVP (09:13)
[2021-04-17 09:18] VITALS: RESP 17
[2021-04-17] MEDS: morphine 4 mg/mL SDV 1 mL IVP (09:18)
[2021-04-17 09:20] VITALS: BP 137/66; PULSE 76; RESP 17; O2SAT 98
--- NOTE | 2021-04-17 09:27 | PC.NURSE ---
Pt taken to CT at this time.
[2021-04-17 09:29] LABS: Add Urine Microscopic? NO; Charge for UA Resulting for Rev
[2021-04-17 09:32] LABS: Basophils # 0.1 10^3/uL (0.0-0.1); Basophils % 0.6 %; Eosinophils # 0.2 10^3/uL (0.0-0.8); Eosinophils % 1.5 %; Hematocrit 50.2 % (37.0-47.0); Lymphocytes # 3.6 10^3/uL (0.8-4.8); Lymphocytes % 36.7 %; Mean Corpuscular HGB Conc 33.9 g/dL (30.0-36.0); Mean Corpuscular Hemoglobin 28.7 pg (28.0-34.0); Mean Corpuscular Volume 84.7 fl (81-99); Mean Platelet Volume 10.1 fL (7.4-10.4); Monocytes # 0.6 10^3/uL (0.2-0.9); Monocytes % 5.7 %; Neutrophils # 5.41 10^3/uL (1.8-7.7); Neutrophils % 55.3 %; Nucleated Red Blood Cells % 0 %; Platelet Count 482 10^3/cmm (130-400); Red Blood Count 5.93 10^6/uL (4.1-5.3); White Blood Count 9.8 10^3/uL (4.0-10.0)
[2021-04-17] MEDS: iohexol 300 mg/mL 100 mL Btl IV (09:32)
[2021-04-17 09:37] LABS: Bilirubin Urine Neg (Negative); Blood Urine Neg (Negative); Glucose Urine UA 4+ (Normal); Ketones Urine Negative (Negative); Leukocyte Esterase Urine Negative (Negative); Nitrate Urine Negative (Negative); Protein Urine Neg (Negative); Urine Appearance Clear (CLEAR); Urine Color Yellow (Yellow); Urobilinogen Urine Norm (Negative); pH Urine 5 (5-7)
[2021-04-17 09:53] LABS: Alanine Aminotransferase 12 U/L (0-33); Albumin Level 4.6 g/dL (3.5-5.2); Alkaline Phosphatase 123 IU/L (35-105); Anion Gap 17.3 (5-19); Aspartate Amino Transferase 14 U/L (0-32); Blood Urea Nitrogen 9 mg/dL (6-20); Calcium 9.8 mg/dL (8.5-10.5); Carbon Dioxide 26 mmol/L (22-29); Chloride 95 mmol/L (98-107); Globulin 3.7 g/dL (1.3-4.6); Glomerular Filtration Rate 128.1 mL/min (90-130); Glucose 325 mg/dL (65-115); Lipase 92 U/L (13-60); Osmolality Calculated 289 mOsm/kg (285-295); Potassium 4.3 mmol/L (3.5-5.1); Sodium 134 mmol/L (136-145); Total Bilirubin 0.7 mg/dL (0.15-1.2); Total Protein 8.3 g/dL (6.6-8.7)
[2021-04-17] MEDS: lidocaine 2% viscous 15 ML, aluminum-mag hydrox-simethicon 30 ML, sucralfate oral liq 1 GM PO (10:06)
[2021-04-17 10:09] VITALS: BP 146/91; PULSE 69; RESP 18; O2SAT 99
[2021-04-17 10:32] VITALS: BP 146/91; PULSE 66; RESP 17; O2SAT 97
--- NOTE | 2021-04-18 13:09 | DCPLANNER ---
Addendum entered by Bonnie Rodriguez 08/08/21 14:54: Patient had a follow up appointment scheduled for 04.22.22 at [facility] - patient did attend appointment. Original Note: marina dry dock manager had message to schedule a follow up appointment for patient with primary care physician. marina dry dock manager spoke with patient and she stated that she would like to get established with Dr. Eaton at [facility]. marina dry dock manager called [facility], spoke with Destiny, gave clinic patients information. A follow up appointment was scheduled for Thursday, April 22, [address] at 11:[address] Eaton. marina dry dock manager called patients and gave patient the appointment information.
== END 2021-04-17 10:32 | disposition home or self-care (01) ==
PROVIDERS: Emergency Provider Physician Assistant
DX: R10.13 Epigastric pain (principal); E11.65 Type 2 diabetes mellitus with hyperglycemia; Z79.84 Long term (current) use of oral hypoglycemic drugs
CPT/HCPCS: 74177; 80053; 81003; 83690; 85025; 93005; 96361; 96374; 96375; 99283; J2270; J2405; J7030; Q9967

== ENCOUNTER → 2021-04-22 11:44 | Outpatient (BNVA) | payer MEDICAID, SELFPAY | PROVIDERS: Visit Provider Family Medicine | DX: E11.9 Type 2 diabetes mellitus without complications (principal); K29.70 Gastritis, unspecified, without bleeding; M16.0 Bilateral primary osteoarthritis of hip; M54.50 Low back pain, unspecified; Z76.89 Persons encountering health services in other specified circumstances | CPT/HCPCS: 82043; 83036; 84443 ==

== ENCOUNTER 2021-07-28 09:09 | Outpatient (CLI) | payer BC, MEDICAID, SELFPAY ==
[2021-07-28 10:24] LABS: Basophils # 0.1 10^3/uL (0.0-0.1); Basophils % 0.7 %; Eosinophils # 0.3 10^3/uL (0.0-0.8); Eosinophils % 1.9 %; Hematocrit 42.5 % (37.0-47.0); Hemoglobin 13.9 g/dL (11.5-15.3); Lymphocytes # 4.7 10^3/uL (0.8-4.8); Lymphocytes % 33.9 %; Mean Corpuscular HGB Conc 32.7 g/dL (30.0-36.0); Mean Corpuscular Hemoglobin 28.9 pg (28.0-34.0); Mean Corpuscular Volume 88.4 fl (81-99); Mean Platelet Volume 9.5 fL (7.4-10.4); Monocytes # 0.7 10^3/uL (0.2-0.9); Monocytes % 5.4 %; Neutrophils % 57.7 %; Nucleated Red Blood Cells % 0 %; Platelet Count 456 10^3/cmm (130-400); Red Blood Count 4.81 10^6/uL (4.1-5.3); Red Cell Distribution Width 13.2 % (12.1-15.1); White Blood Count 13.7 10^3/uL (4.0-10.0)
--- NOTE | 2021-07-28 13:01 | ONC CON_ITS ---
Dr. Mekes New Patient Note Patient: Soco Reeder Unit #: [id number]: [id number] Dicatated By: Rossy Meeks M.D.Date of Visit: Jul 28, 2021 Onc MED New Patient/Consult Referring Physician: Jules Maier History of Present Illness: Ms. Soco Reeder, is a 56-year-old female with a history of diabetes, hypertension, obesity, anxiety, musculoskeletal discomfort, was recently diagnosed with mild leukocytosis/thrombocytosis with normal hemoglobin, as per patient her lab work-up done on June 30, 2021 showed white blood count 12.6, hemoglobin 14.4 hematocrit 44, platelets 457,000 normal being less than 400,000. As per patient, she moved from [place] to [place], while in [place] she was never told about elevated white blood count. Patient denies any fever or chills, denies any nausea or vomiting, denies any diarrhea or constipation, denies any dysuria or hematuria, denies any sinus problem, denies any cough or sore throat, denies any smoking or alcohol use, denies any recurrent skin infection, denies any abdominal fullness, denies any night sweats, denies any weight loss rather weight gain, denies any peripheral lymphadenopathy As per patient she has problem with sleeping and many times wake up with gasping for air, sweating and palpitation, never feels well rested and stays tired during daytime. Never been evaluated for sleep apnea Past Medical History: Ms. Reeder's medical history consists of anxiety, hypertension, low back pain, and type II diabetes. Past Surgical History: Ms. Reeder's surgical/procedural history consists of caesarean section, Moderna COVID vaccine #2 in 2020, and Moderna COVID vaccine #1 in 2020. Medications: Daily Vitamin 1 Tablet Oral daily, glipiZIDE 1 Tablet (of 10 mg) Oral b.i.d., Ibuprofen 1 Tablet (of 600 mg) Oral four times a day PRN, metFORMIN HCl 1 Tablet (of 500 mg) Oral b.i.d., Omeprazole Capsule Delayed Release Oral, traZODone HCl 1 - 2 Tablet (of 50 mg) Oral at bedtime, Trulicity 0.75 mL (of 0.75 mg/0.5mL) Subcutaneous Allergies: No Known Allergies. Social History: Ms. Reeder has a life partner. Ms. Reeder has never smoked. She has no history of drinking. Family History: There is no documented family history. Review Of Symptoms: Review of Systems is not available for this patient. Vital Signs: Performed on Jul 28, 2021 12:06: 5, 0, 33.58 (HIGH), 1.84 sq.m, 62 in, 97 %, 87 /min, 16 /min, 135/75 mm(hg), 98.4 F, and 183.6 lbs (HIGH). Performance Status: 0 - Fully active, able to carry on all predisease activities without restrictions. (ECOG) Physical Examination: ENMT - No mouth sores, no thrush, no jaundice no cervical lymphadenopathy, Respiratory - Lungs are clear to auscultation, Cardiovascular - Regular rate and rhythm of heart, Abdomen - Soft, bowel sounds present, Extremities - No visible edema. Lab/Imaging: Most recent lab results are not available for this patient. Impression: Leukocytosis/thrombocytosis, etiology unclear could be due to chronic inflammatory process like arthritis or could be due to sleep apnea or underlying myeloproliferative disorder. Or medication Obesity Diabetes Bilateral hip pain, musculoskeletal pain Plan: Discussed with patient regarding her labs from today showed white blood count 13.7, hemoglobin 13.9 hematocrit 42.5 platelets 456,000 with neutrophilia, ANC 7900 Clinically, patient doing well with no signs symptoms suggestive of acute infection but chronic inflammation like chronic hip pain, musculoskeletal discomfort/pain. And also signs symptoms suggestive of sleep apnea, considering her weight and size of neck, patient may have underlying sleep apnea moreover her symptoms like waking up gasping for air, palpitation, not getting restful sleep are suggestive of sleep apnea. As far as leukocytosis/thrombocytosis are concerned probably due to underlying untreated sleep apnea or could be due to Trulicity as it is common in first month and then the first year, as per patient her lab work-up was done before she started on Trulicity, other possibility could be underlying myeloproliferative disorder At this point, will consider whole blood flow cytometry, review her peripheral blood smear and also recommend her PMD to consider sleep study as if sleep apnea is confirmed, she may benefit from CPAP machine. Patient return to clinic in 1 month with CBC Signed By: Rossy Meeks M.D. <<Signature on File>>
[2021-07-31 07:27] LABS: Miscellaneous Test See Scanned Lab Rpt
== END 2021-07-28 09:10 | disposition home or self-care (01) ==
LOC: ONCMED 09:13
PROVIDERS: PCP Family Medicine; Visit Provider Internal Medicine Hematology & Oncology
DX: D72.829 Elevated white blood cell count, unspecified (principal); M25.552 Pain in left hip; M25.551 Pain in right hip; G89.29 Other chronic pain; G47.30 Sleep apnea, unspecified; E66.9 Obesity, unspecified; E11.9 Type 2 diabetes mellitus without complications
CPT/HCPCS: 36415; 85025; 88184; 88185; 99204

== ENCOUNTER 2021-09-01 09:21 | Outpatient (CLI) | payer BC, MEDICAID, SELFPAY ==
[2021-09-01 10:04] LABS: Basophils # 0.1 10^3/uL (0.0-0.1); Basophils % 0.5 %; Eosinophils # 0.2 10^3/uL (0.0-0.8); Eosinophils % 1.4 %; Hematocrit 44.2 % (37.0-47.0); Hemoglobin 14.7 g/dL (11.5-15.3); Lymphocytes # 4.1 10^3/uL (0.8-4.8); Lymphocytes % 29.6 %; Mean Corpuscular HGB Conc 33.3 g/dL (30.0-36.0); Mean Corpuscular Hemoglobin 29.4 pg (28.0-34.0); Mean Corpuscular Volume 88.4 fl (81-99); Mean Platelet Volume 9.7 fL (7.4-10.4); Monocytes # 0.8 10^3/uL (0.2-0.9); Monocytes % 5.8 %; Neutrophils # 8.64 10^3/uL (1.8-7.7); Neutrophils % 62.4 %; Nucleated Red Blood Cells % 0 %; Platelet Count 437 10^3/cmm (130-400); Red Cell Distribution Width 12.6 % (12.1-15.1); White Blood Count 13.9 10^3/uL (4.0-10.0)
== END 2021-09-01 09:22 | disposition home or self-care (01) ==
LOC: ONCMED 09:30
PROVIDERS: Internal Medicine Hematology & Oncology; PCP Family Medicine; Visit Provider Nurse Practitioner Family
DX: D72.829 Elevated white blood cell count, unspecified (principal); D75.838 Other thrombocytosis; E66.9 Obesity, unspecified; E11.9 Type 2 diabetes mellitus without complications; M25.552 Pain in left hip; M25.551 Pain in right hip; Z79.899 Other long term (current) drug therapy
CPT/HCPCS: 36415; 85025; 99214

== ENCOUNTER 2021-09-30 08:42 | Outpatient (CLI) | payer BC, MEDICAID, SELFPAY ==
[2021-09-30 09:07] LABS: Basophils # 0.1 10^3/uL (0.0-0.1); Basophils % 0.5 %; Eosinophils # 0.3 10^3/uL (0.0-0.8); Hematocrit 44.5 % (37.0-47.0); Hemoglobin 14.9 g/dL (11.5-15.3); Lymphocytes # 4.4 10^3/uL (0.8-4.8); Lymphocytes % 32.5 %; Mean Corpuscular HGB Conc 33.5 g/dL (30.0-36.0); Mean Corpuscular Hemoglobin 29.5 pg (28.0-34.0); Mean Corpuscular Volume 88.1 fl (81-99); Mean Platelet Volume 9.6 fL (7.4-10.4); Monocytes # 0.8 10^3/uL (0.2-0.9); Monocytes % 6.2 %; Neutrophils # 7.97 10^3/uL (1.8-7.7); Neutrophils % 58.6 %; Nucleated Red Blood Cells % 0 %; Platelet Count 465 10^3/cmm (130-400); Red Blood Count 5.05 10^6/uL (4.1-5.3); Red Cell Distribution Width 12.6 % (12.1-15.1); White Blood Count 13.6 10^3/uL (4.0-10.0)
[2021-09-30 09:24] LABS: Alanine Aminotransferase 15 U/L (0-33); Albumin Level 4.7 g/dL (3.5-5.2); Alkaline Phosphatase 90 IU/L (35-105); Anion Gap 16.2 (5-19); Aspartate Amino Transferase 15 U/L (0-32); Blood Urea Nitrogen 10 mg/dL (6-20); Calcium 9.5 mg/dL (8.5-10.5); Carbon Dioxide 23 mmol/L (22-29); Chloride 102 mmol/L (98-107); Globulin 3.5 g/dL (1.3-4.6); Glomerular Filtration Rate 165.1 mL/min (90-130); Glucose 129 mg/dL (65-115); Osmolality Calculated 285 mOsm/kg (285-295); Potassium 4.2 mmol/L (3.5-5.1); Sodium 137 mmol/L (136-145); Total Bilirubin 0.5 mg/dL (0.15-1.2); Total Protein 8.2 g/dL (6.6-8.7)
--- NOTE | 2021-09-30 17:27 | ONC FU_ITS ---
Dr. Meeks follow up note Patient: Jefferson Reeder Unit #: [id number]: [id number] Dicatated By: Rossy Meeks M.D.Date of Visit:Sep 30, 2021 Onc Med Follow-up/Prog Note History of Present Illness: Ms. Soco Reeder, is a 56-year-old female with a history of diabetes, hypertension, obesity, anxiety, musculoskeletal discomfort, was recently diagnosed with mild leukocytosis/thrombocytosis with normal hemoglobin, as per patient her lab work-up done on June 30, 2021 showed white blood count 12.6, hemoglobin 14.4 hematocrit 44, platelets 457,000 normal being less than 400,000. Whole blood flow cytometry done on July 28, 2021 showed no aberrant myeloid or lymphoid population detected As per patient, she moved from [place] to [place], while in [place] she was never told about elevated white blood count. Patient denies any fever or chills, denies any nausea or vomiting, denies any diarrhea or constipation, denies any dysuria or hematuria, denies any sinus problem, denies any cough or sore throat, denies any smoking or alcohol use, denies any recurrent skin infection, denies any abdominal fullness, denies any night sweats, denies any weight loss rather weight gain, denies any peripheral lymphadenopathy As per patient she has problem with sleeping and many times wake up with gasping for air, sweating and palpitation, never feels well rested and stays tired during daytime. Never been evaluated for sleep apnea. Came for follow-up, denies any specific complaint except chronic lower back pain neck pain bilateral hip pain, as per patient she has been told about bad arthritis and she was referred to physical therapy. But has never seen a aircraft life support fitter. Denies any fever chills denies any nausea or vomiting denies any diarrhea or constipation denies any sinus problems denies any dysuria or hematuria. As per patient her PMD is evaluating her regarding sleep apnea. Medications: Crestor 1 Tablet (of 10 mg) Oral daily, Daily Vitamin 1 Tablet Oral daily, glipiZIDE 1 Tablet (of 10 mg) Oral b.i.d., Hair/Skin/Nails Capsule Oral daily, Ibuprofen 1 Tablet (of 600 mg) Oral four times a day PRN, metFORMIN HCl 1 Tablet (of 500 mg) Oral b.i.d., [place] 3 Capsule Oral daily, Omeprazole Capsule Delayed Release Oral, traZODone HCl 1 - 2 Tablet (of 50 mg) Oral at bedtime, Trulicity 0.75 mL (of 0.75 mg/0.5mL) Subcutaneous Allergies: No Known Allergies. Review of Systems: Review of Systems is not available for this patient. Vital Signs: Performed on Sep 30, 2021 10:26 Height - 62.00 in Weight - 179.6 lbs (LOW) BSA - 1.83 sq.m BMI - 32.85 (HIGH) Temperature - 97.0 F (LOW) Pulse - 91 /min Respiration - 17 /min BP - 130/77 mm(hg) O2 Sat - 98 % Pain - 8 Fatigue - 9 Performance Status: 0 - Fully active, able to carry on all predisease activities without restrictions. (ECOG) Physical Examination: ENMT - No mouth sores, no thrush, no jaundice, Respiratory - Lungs are clear to auscultation, Cardiovascular - Regular rate and rhythm of heart, Abdomen - Soft, bowel sounds present, Extremities - No visible edema. Lab/Imaging: Test performed on Sep 30, 2021 10:02 Glucose 129 mg/dL BUN 10 mg/dL Creatinine 0.4 mg/dL Cr Clearance (Est) 201.9700 mL/min Sodium 137 mmol/L Potassium 4.2 mmol/L Chloride 102 mmol/L CO2 23 mmol/L Calcium 9.5 mg/dL Protein, Total 8.2 g/dL Albumin 4.7 g/dL Globulin 3.5 g/dL Bilirubin, Total 0.5 mg/dL Alkaline Phosphatase 90 International Units/L AST (SGOT) 15 International Units/L ALT (SGPT) 15 International Units/L WBC 13.6 10^9/L RBC 5.05 10^12/L HGB 14.9 g/dL HCT 44.5 % MCV 88.1 fl MCH 29.5 pg MCHC 33.5 g/dL RDW 12.6 % Platelet Count 465 10^9/L MPV 9.6 fL Neutrophils (Gran) 7.97 10^9/L Lymphocytes 4.42 10^9/L Monocytes 0.8432 10^9/L Eosinophils 0.272 10^9/L Basophils 0.068 10^9/L Test performed on Sep 01, 2021 09:49 Neutrophil % 62.4 % Lymphocyte % 29.6 % Monocyte % 5.8 % Eosinophil % 1.4 % Basophils % 0.5 % NRBC % 0 % Impression: Leukocytosis/thrombocytosis, etiology unclear could be due to chronic inflammatory process like arthritis or could be due to sleep apnea or underlying myeloproliferative disorder. Or medication Whole blood flow cytometry done on July 28, 2021 showed no aberrant myeloid or lymphoid population detected Obesity Diabetes Bilateral hip pain, musculoskeletal pain Plan: Discussed with patient regarding her labs white blood count 13.9, hemoglobin 14.7 hematocrit 44.2 platelets 437,000 absolute neutrophil count 8640 Whole blood flow cytometry done on July 28, 2021 showed no aberrant myeloid or lymphoid population detected Clinically, patient is doing well with no new signs symptoms or follow-up CBC shows persistent but mild leukocytosis and thrombocytosis etiology remained unclear as her follow-up whole blood flow cytometry showed no aberrant myeloid or lymphoid population detected. Possibilities, could be underlying sleep apnea, as per patient work-up is in progress and other possibility could be chronic inflammation like chronic arthritis involving lumbosacral area as well as pelvic bones or C-spine, we would recommend rheumatology evaluation. As her whole blood flow cytometry showed no obvious sign of myeloproliferative or lymphoproliferative disorder, at this point, will monitor while she is undergoing sleep apnea evaluation and hopefully with CPAP therapy and management of sleep apnea her leukocytosis may improve and with rheumatology evaluation, if chronic arthritis is confirmed, management of arthritis may also improve her blood counts, if there is a progression, we will consider bone marrow evaluation she will return to clinic in 3 months with CBC. Signed By: Rossy Meeks M.D. <<Signature on File>>
== END 2021-09-30 08:43 | disposition home or self-care (01) ==
PROVIDERS: Internal Medicine Hematology & Oncology; PCP Family Medicine; Visit Provider Nurse Practitioner Family
DX: D75.839 Thrombocytosis, unspecified (principal); D72.829 Elevated white blood cell count, unspecified; E11.9 Type 2 diabetes mellitus without complications; E66.9 Obesity, unspecified; I10 Essential (primary) hypertension; F41.9 Anxiety disorder, unspecified; Z79.899 Other long term (current) drug therapy
CPT/HCPCS: 36415; 80053; 85025; 99214

== ENCOUNTER → 2022-01-01 09:29 | Outpatient (BNVA) | payer BC, MEDICAID, SELFPAY | PROVIDERS: PCP Family Medicine; Visit Provider Surgery | DX: Z12.11 Encounter for screening for malignant neoplasm of colon (principal) | CPT/HCPCS: 99024 ==

== ENCOUNTER 2022-11-11 11:04 | Oncology outpatient (recurring) (ONCR) | payer BC, MEDICAID, SELFPAY ==
[2022-11-11 12:21] LABS: Basophils # 0.1 10^3/uL (0.0-0.1); Basophils % 0.7 %; Eosinophils # 0.4 10^3/uL (0.0-0.8); Eosinophils % 2.8 %; Hematocrit 39.4 % (37.0-47.0); Lymphocytes # 4.6 10^3/uL (0.8-4.8); Lymphocytes % 30.3 %; Mean Corpuscular Hemoglobin 30.2 pg (28.0-34.0); Mean Corpuscular Volume 91.4 fl (81-99); Mean Platelet Volume 9.3 fL (7.4-10.4); Monocytes % 6.8 %; Neutrophils % 59.1 %; Nucleated Red Blood Cells % 0 %; Platelet Count 487 10^3/cmm (130-400); Red Blood Count 4.31 10^6/uL (4.1-5.3); Red Cell Distribution Width 13.5 % (12.1-15.1); White Blood Count 15.2 10^3/uL (4.0-10.0)
[2022-11-11 12:37] LABS: Alanine Aminotransferase 18 U/L (0-33); Albumin Level 4.4 g/dL (3.5-5.2); Alkaline Phosphatase 59 U/L (35-105); Anion Gap 14.8 (5-19); Aspartate Amino Transferase 13 U/L (0-32); Blood Urea Nitrogen 8 mg/dL (6-20); Calcium 9.5 mg/dL (8.5-10.5); Carbon Dioxide 30 mmol/L (22-29); Chloride 102 mmol/L (98-107); Globulin 2.9 g/dL (1.3-4.6); Glomerular Filtration Rate 86.2 mL/min (90-130); Glucose 103 mg/dL (65-115); Osmolality Calculated 293 mOsm/kg (285-295); Potassium 4.8 mmol/L (3.5-5.1); Sodium 142 mmol/L (136-145); Total Bilirubin 0.3 mg/dL (0.15-1.2); Total Protein 7.3 g/dL (6.6-8.7)
== END 2022-11-15 23:59 | disposition home or self-care (01) ==
LOC: ONCMED 11:05
PROVIDERS: Nurse Practitioner Family; PCP Nurse Practitioner; Visit Provider Internal Medicine Hematology & Oncology
DX: D72.829 Elevated white blood cell count, unspecified (principal); D75.839 Thrombocytosis, unspecified
CPT/HCPCS: 36415; 80053; 85025

== ENCOUNTER → 2023-09-06 10:33 | Outpatient (BNVA) | payer BC, MEDICAID, SELFPAY | PROVIDERS: PCP Nurse Practitioner; Referring Provider Nurse Practitioner; Visit Provider Specialist | DX: M25.562 Pain in left knee (principal); G89.29 Other chronic pain | CPT/HCPCS: 73560; 73565 ==

== ENCOUNTER 2023-09-21 13:42 | Emergency (ER) | payer BC, MEDICAID, SELFPAY ==
[2023-09-21 13:50] VITALS: BP 163/76; PULSE 111; RESP 16; TEMP 36.7; O2SAT 98; BMI 25.4
[2023-09-21 15:26] VITALS: BP 143/117; PULSE 112; O2SAT 100
--- NOTE | 2023-09-21 15:27 | ED_ITS ---
HPI - Wound/Laceration 2 General: Chief Complaint: Animal Bite Stated Complaint: right arm pain, tick bite, swelling, pus Time Seen by Provider: 09/21/23 14:57 Source: patient Mode of arrival: ambulatory Limitations: no limitations History of Present Illness: Patient is a 58-year-old female presents to ED today with complaint of tick bite to her right forearm. Patient states yesterday after she was out in the [place] she noticed some itching to her arm and looked down and noticed that there was a tick. Patient states she promptly picked it off but afterwards began noticing some redness and itching. Patient states she took Benadryl. She shortly noticed later that there was some type of leg or head still stuck in her arm that she extracted. Patient feels like area was swollen this morning when she awoke. She is reportedly very concerned regarding infection or tick illness. No fevers. No streaking. Onset (ago): day(s) (yesterday) Extremity Location: Right: forearm Place: home Patient tetanus UTD: Yes Context: accidental Associated symptoms: Reports no associated symptoms; Denies chills, fever(s), nausea or vomiting Review of Systems 2 Const: Denies: fever(s), chills, body aches, fatigue or malaise GI: Denies: abdominal pain, nausea, vomiting or diarrhea Musc: Reports: extremity pain Skin/Breast: Reports: other (tick bite with swelling/redness) Neuro: Denies: headache(s) PFSH ED 2 PFSH: Medical History Cellulitis Poison jaime dermatitis Diabetes mellitus Social History Smoking and tobacco/nicotine status: never used tobacco/nicotine Alcohol intake: never Substance/Drug Use: current Substance/Drug use frequency: few times a month Physical Exam 2 Const: COMMON NORMALS: no acute distress, average body habitus, patient oriented x3, no limitations, alert and well nourished GENERAL APPEARANCE: c ooperative and anxious ORIENTATION/CONSCIOUSNESS: Yes awake, Yes oriented to person, Yes oriented to place and Yes oriented to time Resp: COMMON NORMALS: normal respiratory effort and clear to auscultation bilaterally AUSCULTATION: clear to auscultation bilaterally Cardio: COMMON NORMALS: regular rhythm RATE: tachycardic RHYTHM: regular rhythm Extremity: COMMON NORMALS: full ROM GENERAL: Yes normal exam except as noted RIGHT UPPER EXTREMITY: Yes lower arm EXTREMITY IMAGE (FRONT): 1. small 1-2mm sore consistent with recent tick bite 2. very mild erythema present without wa rmth; no edema noted; no fluctuance noted; no streaking Neuro: COMMON NORMALS: patient oriented x3, moves all extremities, no focal motor deficits and no sensory deficits noted SENSORIUM/ORIENTATION: Yes alert, Yes oriented to person, Yes oriented to place and Yes oriented to time Skin: NARRATIVE SKIN EXAM: see above Course 2 Vital Signs: Vital signs: Vital Signs Temperature 98.0 F 09/21/23 13:50 Pulse Rate 112 H 09/21/23 15:26 Respiratory Rate 16 09/21/23 13:50 Blood Pressure 143/117 09/21/23 15:26 Pulse Oximetry 100 09/21/23 15:26 Oxygen Delivery Me thod Room Air 09/21/23 15:26 MDM - Wound/Laceration Medical Decision Making Tick bite at this time honestly appears more like a normal common reaction however patient is petrified of infection and tick illness. She is a diabetic. She is requesting tick panel. This was collected. I will place her on Doxycycline. Return to ED precautions given. Medical Records I reviewed the patient's medical records. No radiology studies performed this visit Discharge Plan Discharge Patient Disposition: Home Clinical Impression: Tick bite of right forearm Qualifiers: Encounter type: initial encounter Qualified Code(s): S50.861A - Insect bite (nonvenomous) of right forearm, initial encounter Condition: Stable Prescriptions: New doxycycline monohydrate 100 mg capsule 100 mg PO Q12H 10 Days Qty: 20 0RF No Action cyclobenzaprine 10 mg tablet 10 mg PO TID Victoza 2-Bertram 0.6 mg/0.1 mL (18 mg/3 mL) pen injector 1.2 mg SUBCUT DAILY dapagliflozin propanediol [Farxiga] 10 mg tablet 10 mg PO DAILY metformin 500 mg tablet 500 mg PO BID trazodone 50 mg tablet 50 - 150 mg PO BEDTIME diclofenac sodium 75 mg tablet,delayed release (DR/EC) 75 mg PO BID rosuvastatin 10 mg tablet 10 mg PO DAILY bupropion HCl 150 mg tablet extended release 24 hr 150 mg PO [facility] ann mariemofaxine 75 mg capsule,extended release 24hr 225 mg PO DAILY glipizide 10 mg tablet 10 mg PO BID Discharge Orders: Discharge ED (Routine); Ordered 09/21/23 Ordered By: Leonila Plasencia Referrals: Jules Maier FNP [Primary Care Provider] - Patient Instructions: Tick Bite (ED) Coding Level of Care Code ED Commercial Intelligence Manager for Lexi Vazquez
--- NOTE | 2023-09-21 16:41 | PC.NURSE ---
RX CALLED INTO [facility].
[2023-09-22 12:34] LABS: Lyme AB Screen <0.90 index
[2023-09-22 16:45] LABS: Alanine Aminotransferase 22 U/L (0-33); Albumin Level 4.7 g/dL (3.5-5.2); Alkaline Phosphatase 87 U/L (35-105); Aspartate Amino Transferase 17 U/L (0-32); Blood Urea Nitrogen 17 mg/dL (6-20); Calcium 9.1 mg/dL (8.5-10.5); Carbon Dioxide 23 mmol/L (22-29); Chloride 98 mmol/L (98-107); Creatinine Clr Calc Pharmacy 76.4482; Globulin 3.2 g/dL (1.3-4.6); Glomerular Filtration Rate 85.9 mL/min (90-130); Glucose 373 mg/dL (65-115); Osmolality Calculated 299 mOsm/kg (285-295); Sodium 136 mmol/L (136-145); Total Bilirubin 0.3 mg/dL (0.15-1.2); Total Protein 7.9 g/dL (6.6-8.7)
[2023-09-22 17:07] LABS: Anion Gap 21.1 (5-19); Potassium 6.1 mmol/L (3.5-5.1)
[2023-09-27 17:20] LABS: E. Chaffeensis AB IGG <1:64; E. Chaffeensis AB IGM <1:20
[2023-09-28 16:48] LABS: RMSF IGG NOT DETECTED; RMSF IGM NOT DETECTED
== END 2023-09-21 16:11 | disposition home or self-care (01) ==
PROVIDERS: Internal Medicine; Emergency Provider Physician Assistant; PCP Nurse Practitioner
DX: S50.861A Insect bite (nonvenomous) of right forearm, initial encounter (principal); W57.XXXA Bitten or stung by nonvenomous insect and other nonvenomous arthropods, initial encounter; Z79.84 Long term (current) use of oral hypoglycemic drugs; E11.9 Type 2 diabetes mellitus without complications
CPT/HCPCS: 36415; 80053; 86618; 86666; 86757; 99283

== ENCOUNTER 2023-10-04 09:00 | Oncology outpatient (recurring) (ONCR) | payer BC, MEDICAID, SELFPAY ==
[2023-09-23 11:15] LABS: Basophils # 0.1 10^3/uL (0.0-0.1); Basophils % 0.7 %; Eosinophils # 0.3 10^3/uL (0.0-0.8); Eosinophils % 2.2 %; Hematocrit 42.5 % (36-47); Lymphocytes # 4.4 10^3/uL (0.8-4.8); Lymphocytes % 36.5 %; Mean Corpuscular HGB Conc 33.2 g/dL (30-55); Mean Corpuscular Hemoglobin 29.1 pg (27-33); Mean Corpuscular Volume 87.6 fl (85-98); Mean Platelet Volume 9.1 fL (7.4-10.4); Monocytes # 0.8 10^3/uL (0.2-0.9); Monocytes % 6.8 %; Neutrophils # 6.42 10^3/uL (1.8-7.7); Neutrophils % 53.5 %; Nucleated Red Blood Cells % 0 %; Platelet Count 481 10^3/cmm (157-399); Red Blood Count 4.85 10^6/uL (3.85-5.65); Red Cell Distribution Width 13.1 % (12.1-15.1); White Blood Count 12.04 10^3/uL (3.29-11.43)
[2023-09-23 13:10] LABS: Reticulocyte % 2.2 % (0.5-2.0)
[2023-09-23 13:32] LABS: LAB Peripheral Smear Sent for Review
[2023-09-23 13:38] LABS: Alanine Aminotransferase 23 U/L (0-33); Albumin Level 4.4 g/dL (3.5-5.2); Alkaline Phosphatase 78 U/L (35-105); Anion Gap 17.1 (5-19); Aspartate Amino Transferase 15 U/L (0-32); Blood Urea Nitrogen 16 mg/dL (6-20); Calcium 9.4 mg/dL (8.5-10.5); Carbon Dioxide 24 mmol/L (22-29); Chloride 102 mmol/L (98-107); Creatinine Clr Calc Pharmacy 85.4815; Ferritin 63 ng/mL (15-150); Globulin 3.2 g/dL (1.3-4.6); Glomerular Filtration Rate 85.9 mL/min (90-130); Glucose 223 mg/dL (65-115); Iron 52 ug/dL (37-145); Lactate Dehydrogenase 182 U/L (135-214); Osmolality Calculated 296 mOsm/kg (285-295); Percent Saturation 16.4 % (20-50); Potassium 4.1 mmol/L (3.5-5.1); Sodium 139 mmol/L (136-145); Total Bilirubin 0.4 mg/dL (0.15-1.2); Total Iron Binding Capacity 317 mcg/dl; Total Protein 7.6 g/dL (6.6-8.7); Unsaturated Iron Binding 265 ug/dL (112-347)
[2023-09-23 13:59] LABS: Hepatitis A Antibody IgM Non-Reactive (Nonreactive); Hepatitis B Surface Antigen Non-Reactive (Nonreactive); Hepatitis C Virus Antibody Non-Reactive (Nonreactive)
[2023-09-23 14:28] LABS: Hepatitis B Surface AB > 1000.0 (11.5-1000)
[2023-09-23 14:51] LABS: Free T4 Free Thyroxine 1.12 ng/dL (0.82-1.77)
[2023-09-23 14:52] LABS: Hepatitis B Core AB, Total Reactive (Nonreactive)
[2023-09-23 15:04] LABS: Folate Level > 20.0 ng/mL (4.8-37.3)
[2023-09-23 15:35] LABS: Thyroid Stimulating Hormone 1.74 uIU/mL (0.27-4.20); Vitamin B12 558 pg/mL (232-1245)
[2023-09-24 14:15] LABS: Leukemia Profile (BBPL) See Report
[2023-09-27 05:39] LABS: Methylmalonic Acid 179 nmol/L (87-318)
[2023-09-27 12:34] LABS: Copper Level 106 mcg/dL (70-175)
[2023-09-28 11:50] LABS: Soluble Transferrin Receptor 1.33 mg/L (0.76-1.76)
[2023-09-28 17:10] LABS: P190 BCR ALB1 NOT DETECTED; P190 BCR ALB1 Yes Test Yes; P210 BCR ALB1 NOT DETECTED; P210 BCR ALB1 Yes Test Yes; Prior Results NG; Source whole blood
[2023-10-01 17:14] LABS: CALR Exon 9 Mutation NOT DETECTED (NOT DETECTED); CSF3R Exon 14/17 Mutation NOT DETECTED (NOT DETECTED); JAK2 Exon 12 Mutation NOT DETECTED (NOT DETECTED); JAK2 V617 Block Specimen ID NG; JAK2 V617 Clinical Indication NG; JAK2 V617 Mutation NOT DETECTED (NOT DETECTED); JAK2 V617 Specimen Source NG; MPL Exon 12 Mutation NOT DETECTED (NOT DETECTED)
[2023-10-05 13:10] LABS: Hepatitis B Virus DNA NOT DETECTED (NOT DETECTED); Hepatitis B Virus DNA PCR NOT DETECTED Log IU/mL (NOT DETECTED)
[2023-10-06 05:16] LABS: Hepatitis B Envelope Antigen NON-REACTIVE (NON-REACTIVE)
[2023-10-06 14:13] LABS: Lymphoma Profile (BBPL) See Report
== END 2023-10-17 23:59 | disposition home or self-care (01) ==
PROVIDERS: PCP Nurse Practitioner; Visit Provider Internal Medicine
DX: R76.8 Other specified abnormal immunological findings in serum (principal); D75.839 Thrombocytosis, unspecified; R55 Syncope and collapse; D72.829 Elevated white blood cell count, unspecified
CPT/HCPCS: 36415; 80053; 81206; 81207; 81270; 81279; 81339; 81479; 82525; 82607; 82728; 82746; 83540; 83550; 83615; 83921; 84238; 84439; 84443; 85025; 85045; 86705; 86706; 86709; 86803; 87340; 87350; 87517; 88184; 88185

== ENCOUNTER 2023-12-21 12:48 | Oncology outpatient (recurring) (ONCR) | payer BC, MEDICAID, SELFPAY ==
[2023-12-21 13:31] LABS: Basophils # 0.1 10^3/uL (0.0-0.1); Basophils % 0.5 %; Eosinophils # 0.3 10^3/uL (0.0-0.8); Eosinophils % 3.2 %; Hematocrit 41.4 % (36-47); Lymphocytes # 4.4 10^3/uL (0.8-4.8); Lymphocytes % 42.4 %; Mean Corpuscular HGB Conc 32.1 g/dL (30-55); Mean Corpuscular Hemoglobin 27.8 pg (27-33); Mean Corpuscular Volume 86.6 fl (85-98); Mean Platelet Volume 9.1 fL (7.4-10.4); Monocytes # 0.8 10^3/uL (0.2-0.9); Monocytes % 7.2 %; Neutrophils # 4.86 10^3/uL (1.8-7.7); Neutrophils % 46.5 %; Nucleated Red Blood Cells % 0 %; Platelet Count 426 10^3/cmm (157-399); Red Blood Count 4.78 10^6/uL (3.85-5.65); Red Cell Distribution Width 13.2 % (12.1-15.1); White Blood Count 10.44 10^3/uL (3.29-11.43)
[2023-12-21 13:56] LABS: Alanine Aminotransferase 28 U/L (0-33); Albumin Level 4.4 g/dL (3.5-5.2); Alkaline Phosphatase 80 U/L (35-105); Anion Gap 13.3 (5-19); Aspartate Amino Transferase 18 U/L (0-32); Blood Urea Nitrogen 17 mg/dL (6-20); Calcium 8.6 mg/dL (8.5-10.5); Carbon Dioxide 27 mmol/L (22-29); Chloride 102 mmol/L (98-107); Globulin 3.1 g/dL (1.3-4.6); Glomerular Filtration Rate 73.7 mL/min (90-130); Glucose 155 mg/dL (65-115); Osmolality Calculated 291 mOsm/kg (285-295); Potassium 4.3 mmol/L (3.5-5.1); Sodium 138 mmol/L (136-145); Total Bilirubin 0.3 mg/dL (0.15-1.2); Total Protein 7.5 g/dL (6.6-8.7)
== END 2024-01-16 23:59 | disposition home or self-care (01) ==
PROVIDERS: PCP Nurse Practitioner; Visit Provider Internal Medicine
DX: D75.839 Thrombocytosis, unspecified; D72.829 Elevated white blood cell count, unspecified; Z53.9 Procedure and treatment not carried out, unspecified reason
CPT/HCPCS: 36415; 80053; 85025

== ENCOUNTER 2024-04-28 12:02 | Emergency (ER) | payer MEDICAID, SELFPAY ==
[2024-04-28 13:25] VITALS: BP 153/72; PULSE 100; RESP 16; TEMP 36.9; O2SAT 96; BMI 23.6
--- NOTE | 2024-04-28 14:22 | ED_ITS ---
HPI - Fall General: Chief Complaint: Fall Stated Complaint: fell, pain R. side, hand Time Seen by Provider: 04/28/24 13:55 Source: patient Mode of arrival: ambulatory Limitations: no limitations History of Present Illness: Patient is a 58-year-old female presents to the ED today with a complaint of right-sided back pain with radiation down into her right lower extremity. Patient states several days ago she was going down a flight of unsteady steps when she got to the bottom of the step and the stair broke causing her to fall through. Feels like she fell onto her right side. Patient has chronic neck and back pain. She has had problems with her sciatic before feels like her symptoms today are similar to this as she complains of tingling into her right lower extremity. She has not noticed any redness or swelling. No coolness or pallor. She does have another complaint of a possible infection to her right index finger. She arrives in no acute distress with stable vital signs. Denies s triking her head or LOC. Patient has been ambulatory without assistance since the fall. MD complaint: fall Onset (ago): day(s) ( about 3 days or so ago ) Fall from: down stairs (#) Fall witnessed: no Loss of consciousness: None Prolonged down time: no Symptoms prior to fall: none Context: tripped/slipped (fell through a stair) Associated symptoms-after fall: Reports neck pain (chronic-at baseline); Denies abdominal pain, chest pain, headache(s) or hematuria Related Data Home Medications Medication Instructions Recorded Confirmed dapagliflozin propanediol 10 mg 10 mg PO DAILY 09/06/23 04/17/24 tablet (Farxiga) bupropion HCl 150 mg 24 hr tablet, 150 mg PO QAM 09/21/23 04/17/24 extended release diclofenac sodium 75 mg 75 mg PO BID 09/21/23 04/17/24 tablet,delayed release glipizide 10 mg tablet 10 mg PO BID 09/21/23 04/17/24 metformin 500 mg tablet 500 mg PO BID 09/21/23 04/17/24 rosuvastatin 5 mg tablet 5 mg PO DAILY 04/17/24 04/17/24 Previous Rx's Medication Instructions Recorded blood-glucose meter,continuous #1 ea 04/17/24 (DexIpselex G7 Head Of Data) blood-glucose sensor (Dexcom G7 #1 ea 04/17/24 Sensor device) insulin glargine 100 unit/mL (3 40 unit (0.4 mL) SUBCUT DAILY #15 04/17/24 mL) subcutaneous pen (Lantus mL Solostar U-100 Insulin) cephalexin 500 mg capsule 500 mg PO Q6H 7 days #28 caps 04/28/24 cyclobenzaprine 10 mg tablet 10 mg PO TID #20 tabs 04/28/24 tramadol 50 mg tablet 50 mg PO Q6H PRN pain #14 tabs 04/28/24 Allergies Allergy/AdvReac Type Severity Reaction Status Date / Time adhesive tape Allergy ALGY-Rash Verified 04/28/24 13:35 tick-borne encephalitis Allergy ALGY-Anaphy Verified 04/28/24 13:35 vaccine laxis Review of Systems Eyes: Denies: change in vision, blurry vision, floaters or seeing flashes Card: Denies: chest pain or palpitations Resp: Denies: dyspnea GI: Denies: abdominal pain, nausea or vomiting : Denies: flank pain, dysuria or hematuria Musc: Reports: neck pain (chronic-at baseline), back pain and extremity pain (R index finger, R LE); Denies: extremity swelling, joint pain, joint swelling, joint redness, joint warmth or limited range of motion Skin/Breast: Denies: rash Neuro: Reports: sensory changes (R LE); Denies: headache(s), numbness in extremities or weakness in extremities PFSH ED PFSH: Medical History Cellulitis Poison jaime dermatitis Diabetes mellitus Social History Smoking and tobacco/nicotine status: never used tobacco/nicotine Alcohol intake: never Substance/Drug Use: current Substance/Drug use frequency: few times a month Physical Exam Const: COMMON NORMALS: no acute distress, average body habitus, patient oriented x3, no limitations, healthy appearing, alert and well nourished GENERAL APPEARANCE: cooperative ORIENTATION/CONSCIOUSNESS: Yes awake, Yes oriented to person, Yes oriented to place and Yes oriented to time HENMT: COMMON NORMALS: normocephalic and atraumatic HEAD & SCALP: normal to inspection, normocephalic and atraumatic Neck/C-Spine: COMMON NORMALS: full ROM CERVICAL SPINE: No Cervical spine tenderness Chest: COMMONS NORMALS: normal inspection of the chest and normal palpation of entire chest wall Resp: COMMON NORMALS: normal respiratory effort and clear to auscultation bilaterally AUSCULTATION: clear to auscultation bilaterally Cardio: COMMON NORMALS: regular rate and regular rhythm RATE: regular rate RHYTHM: regular rhythm GI: COMMON NORMALS: Normal to inspection, nondistended, normoactive bowel sounds present, Soft to palpation and non-tender PALPATION: Yes Soft to palpation : COMMON NORMALS: Yes no CVA tenderness BLADDER/KIDNEY EXAM: Yes no CVA tenderness Back/Pelvis: COMMON NORMALS: no CVA tenderness, thoracic and lumbar spine normal to inspection, no thoracic nor lumbar tenderness and straight leg raise negative bilaterally PELVIS: Yes sciatic notch tenderness (palpation directly reproduces pain) on the right SACRUM: no tenderness COCCYX: no tenderness Extremity: COMMON NORMALS: normal to inspection, full ROM, capillary refill normal, no joint enlargement, no clubbing, cyanosis or edema, no calf tenderness and no pedal edema NARRATIVE EXTREMITY EXAM: distal pulses normal GENERAL: Yes normal exam except as noted LEFT UPPER EXTREMITY: Yes hand & digits (paronychia R index finger) Neuro: COMMON NORMALS: patient oriented x3, moves all extremities, no focal motor deficits, no sensory deficits noted and gait normal SENSORIUM/ORIENTATION: Yes alert, Yes oriented to person, Yes oriented to place and Yes oriented to time Course Vital Signs: Vital signs: Vital Signs Temperature 98.5 F 04/28/24 13:25 Pulse Rate 100 04/28/24 13:25 Respiratory Rate 16 04/28/24 13:25 Blood Pressure 153/72 04/28/24 13:25 Pulse Oximetry 96 04/28/24 13:25 Oxygen Delivery Me thod Room Air 04/28/24 13:25 MDM - Fall Medical Decision Making Patient has direct tenderness over her right sciatic notch. No midline back pain. She has been ambulatory since the fall over the past several days. Do not suspect any acute fractures at this time. She maintains normal range of motion of the hip. Most likely fall exacerbated her chronic back pain. Offered incision and drainage for her paronychia but she declines. Would like to continue warm water soaks and try antibiotics. Discussed treatment for her sciatica. She is a chronically uncontrolled diabetic. Will stay away from steroids. She takes ibuprofen daily so she can continue this. States she used to take tramadol for her chronic neck and back pain and felt like this worked well so we will try this along with a muscle relaxer. Recommend she follow-up with primary care next week. Return to ED precautions given. No radiology studies performed this visit Discharge Plan Discharge Patient Disposition: Home Clinical Impression: Acute paronychia of finger of right hand Sciatica Qualifiers: Laterality: right Qualified Code(s): M54.31 - Sciatica, right side Condition: Stable Prescriptions: New tramadol 50 mg tablet 50 mg PO Q6H PRN (Reason: pain) Qty: 14 0RF cephalexin 500 mg capsule 500 mg PO Q6H 7 Days Qty: 28 0RF Continued cyclobenzaprine 10 mg tablet 10 mg PO TID Qty: 20 0RF No Action dapagliflozin propanediol [Farxiga] 10 mg tablet 10 mg PO DAILY rosuvastatin 5 mg tablet 5 mg PO DAILY insulin glargine [Lantus Solostar U-100 Insulin] 100 unit/mL (3 mL) insulin pen 40 unit SUBCUT DAILY Qty: 15 3RF (DME) Dexcom G7 Head Of Data Misc See Rx Instructions .Route Qty: 1 0RF Rx Instructions: As directed (DME) Dexcom G7 Sensor Device See Rx Instructions .Route Qty: 1 6RF Rx Instructions: As directed metformin 500 mg tablet 500 mg PO BID diclofenac sodium 75 mg tablet,delayed release (DR/EC) 75 mg PO BID bupropion HCl 150 mg tablet extended release 24 hr 150 mg PO QAM glipizide 10 mg tablet 10 mg PO BID Discharge Orders: Discharge ED (Routine); Ordered 04/28/24 Ordered By: Leonila Plasencia Referrals: Jules Maier, WAX SPECIALIST [Primary Care Provider] - Patient Instructions: Paronychia (ED), Opioid Safety, Pain Management, Sciatica Activity Restrictions/Additional Instructions: As we discussed, you may continue taking your ibuprofen as needed for discomfort. We will place you on tramadol and give you a muscle relaxer as well to help. We will forego on steroids as you are a noncontrolled diabetic and these are likely to cause worsening blood sugars. You have been offered drainage of your paronychia to your finger but have declined. Recommend warm soaks as much as possible and we will place you on antibiotics for this. As we discussed, I would like you to follow-up with your primary care provider next week for reevaluation. Coding Level of Care Code ED Sheet Metal Production Worker for Lexi Vazquez
[2024-04-28 14:33] VITALS: BP 162/85; PULSE 101; RESP 18; O2SAT 97
== END 2024-04-28 14:57 | disposition home or self-care (01) ==
PROVIDERS: Emergency Provider Physician Assistant; PCP Nurse Practitioner
DX: M54.31 Sciatica, right side (principal); L03.011 Cellulitis of right finger; Z79.4 Long term (current) use of insulin; Z79.84 Long term (current) use of oral hypoglycemic drugs; E11.9 Type 2 diabetes mellitus without complications
CPT/HCPCS: 99283

== ENCOUNTER 2024-05-08 09:08 | Emergency (ER) | payer MEDICAID, SELFPAY ==
[2024-05-08 09:46] VITALS: BP 141/73; PULSE 100; RESP 18; TEMP 36.7; O2SAT 100; BMI 25.4
--- NOTE | 2024-05-08 09:57 | XRR_ITS ---
PROCEDURE INFORMATION: Exam: XR Lumbosacral Spine Exam date and time: 05/08/2024 10:12 AM Age: 58 years old Clinical indication: Low back pain TECHNIQUE: Imaging protocol: Radiologic exam of the lumbosacral spine. Views: 2 or 3 views. COMPARISON: CR XR lumbar spine 2-3V* [id number] 07/03/2020 11:02 AM FINDINGS: Bones/joints: Mild prominence of the bilateral L5 transverse processes again seen. No distinct transitional lumbosacral vertebrae. No acute fracture or malalignment. No worrisome lytic or blastic osseous lesion. Moderate multilevel disc space narrowing, osteophyte formation, bilateral facet hypertrophy. Soft tissues: No soft tissue abnormality. XR/XR lumbar spine 2-3V* [id number] IMPRESSION: 1. No acute fracture or malaligment. 2. Moderate multilevel degenerative change.
--- NOTE | 2024-05-08 09:59 | ED_ITS ---
HPI - Back Pain/Injury General: Chief Complaint: Extremity Problem,Nontraumatic Stated Complaint: weakness in legs Time Seen by Provider: 05/08/24 09:10 Source: patient Mode of arrival: ambulatory Limitations: no limitations History of Present Illness: Patient is a 58-year-old female presents to ED today with a complaint of right lower back and hip pain. She states symptoms seemed to have started following an injury approximately 10 days ago when she fell on a flight of stairs. Denies falling directly onto the hip or back but feels like this injury aggravated her sciatica that she has had previously. Patient has been ambulatory since the injury. She was initially complaining of right lower back and hip pain but now feels like her pain has moved over into the left hip-reports maybe from ove rcompensating. She feels a tingling sensation to the right lower extremity. Patient is not having any saddle anesthesia. She is not having any urinary incontinence or fecal retention. MD elicited complaint: back pain and other (hip pains) Pertinent past history: prior back pain and recent trauma Onset (ago): day(s) Timing: constant Severity: severe Pain scale (0-10): 8 Similar Symptoms Previously: Yes Quality: burning and tingling Location: lumbar spine, right lower back and left lower back Radiation: right upper leg and right leg below the knee Exacerbating factors: movement and walking Relieving factors: supine Associated symptoms: Reports no associated symptoms; Deny chills, difficulty walking, fatigue or fever(s) Work related injury: No Related Data Home Medications Medication Instructions Recorded Confirmed dapagliflozin propanediol 10 mg 10 mg PO DAILY 09/06/23 05/08/24 tablet (Farxiga) bupropion HCl 150 mg 24 hr tablet, 150 mg PO QAM 09/21/23 05/08/24 extended release glipizide 10 mg tablet 10 mg PO BID 09/21/23 05/08/24 metformin 500 mg tablet 500 mg PO BID 09/21/23 05/08/24 rosuvastatin 5 mg tablet 5 mg PO DAILY 04/17/24 05/08/24 apple cider vinegar 300 mg tablet 300 mg PO DAILY 05/08/24 05/08/24 buspirone 7.5 mg tablet 1 mg PO BID 05/08/24 05/08/24 coenzyme Q10 400 mg capsule (Co 400 mg PO DAILY 05/08/24 05/08/24 Q-10) multivitamin 1 tab PO DAILY 05/08/24 05/08/24 quetiapine 50 mg tablet See Rx Instructions .Route .COMPLEX 05/08/24 05/08/24 Previous Rx's Medication Instructions Recorded blood-glucose meter,continuous #1 ea 04/17/24 (Dexcom G7 [employer]) blood-glucose sensor (Dexcom G7 #1 ea 04/17/24 Sensor device) insulin glargine 100 unit/mL (3 40 unit (0.4 mL) SUBCUT DAILY #15 04/17/24 mL) subcutaneous pen (Lantus mL Solostar U-100 Insulin) tramadol 50 mg tablet 50 mg PO Q6H PRN pain #14 tabs 04/28/24 diclofenac sodium 75 mg 75 mg PO BID #20 tabs 05/08/24 tablet,delayed release methocarbamol 500 mg tablet 1,000 mg (2 x 500 mg) PO Q8H #30 05/08/24 tabs methylprednisolone 4 mg tablets in See Rx Instructions PO .COMPLEX 05/08/24 a dose pack (Medrol (Bertram)) #21 ea Allergies Allergy/AdvReac Type Severity Reaction Status Date / Time adhesive tape Allergy ALGY-Rash Verified 05/08/24 10:01 tick-borne encephalitis Allergy ALGY-Anaphy Verified 05/08/24 10:01 vaccine laxis Review of Systems Const: Denies: fever(s), chills, body aches, fatigue or malaise Card: Denies: chest pain Resp: Denies: dyspnea Musc: Reports: back pain and joint pain; Denies: neck pain, extremity swelling, joint swelling, joint redness, joint warmth or limited range of motion Neuro: Reports: sensory changes; Denies: headache(s), numbness in extremities, weakness in extremities or difficulty walking PFS ED PFSH: Medical History Cellulitis Poison jaime dermatitis Diabetes mellitus Social History Smoking and tobacco/nicotine status: never used tobacco/nicotine Alcohol intake: never Substance/Drug Use: current Substance/Drug use frequency: few times a month Physical Exam Const: COMMON NORMALS: no acute distress, average body habitus, patient oriented x3, no limitations, healthy appearing, alert and well nourished GENERAL APPEARANCE: cooperative ORIENTATION/CONSCIOUSNESS: Yes awake, Yes oriented to person, Yes oriented to place and Yes oriented to time Neck/C-Spine: COMMON NORMALS: full ROM and no meningeal signs CERVICAL SPINE: Yes cervical ROM normal, No pain with cervical ROM and No Cervical spine tenderness Resp: COMMON NORMALS: normal respiratory effort GI: COMMON NORMALS: Normal to inspection, nondistended, normoactive bowel sounds present, Soft to palpation, non-tender, No hepatosplenomegaly present and no masses PALPATION: Yes Soft to palpation and Yes No hepatosplenomegaly present : COMMON NORMALS: Yes no CVA tenderness BLADDER/KIDNEY EXAM: Yes no CVA tenderness Back/Pelvis: COMMON NORMALS: no CVA tenderness and straight leg raise negative bilaterally (straight leg on R causes R hip pain/not back pain) THORACIC SPINE/UPPER BACK: No thoracic spinal tenderness LUMBAR SPINE/LOWER BACK: Yes lumbar spinal tenderness and Yes paraspinal muscle tenderness (across lower back) PELVIS: Yes sciatic notch tenderness on the right SACROILIAC JOINTS: Yes SI joints normal SACRUM: no tenderness COCCYX: no tenderness Extremity: COMMON NORMALS: normal to inspection, full ROM, capillary refill n ormal, no joint enlargement, no clubbing, cyanosis or edema, no calf tenderness and no pedal edema NARRATIVE EXTREMITY EXAM: DP/PT pulses, cap refill, and sensation all normal bilaterally GENERAL: Yes normal exam except as noted Neuro: COMMON NORMALS: patient oriented x3, moves all extremities, no focal motor deficits, no sensory deficits noted and gait normal SENSORIUM/ORIENTATION: Yes alert, Yes oriented to person, Yes oriented to place and Yes oriented to time MENINGEAL SIGNS: Yes no meningeal signs Skin: COMMON NORMALS: no rashes or lesions noted GENERAL SKIN EXAM: no rashes or lesions noted Course Vital Signs: Vital signs: Vital Signs Temperature 98.1 F 05/08/24 09:46 Pulse Rate 100 05/08/24 09:46 Respiratory Rate 18 05/08/24 09:46 Blood Pressure 141/73 05/08/24 09:46 Pulse Oximetry 100 05/08/24 09:46 Oxygen Delivery Me thod Room Air 05/08/24 09:46 MDM - Back Pain/Injury Medical Decision Making Patient has no acute neurologic deficits on history or physical examination. XR imaging obtained of her lumbar spine as well as her right hip and pelvis and these were unremarkable. She feels better after IM steroids, muscle relaxers, NSAIDs. She is ambulatory here without difficulty or assistance. Recommend follow-up with her primary care provider. Return ED precautions given. Differential Diagnosis Likely lumbar radiculopathy, sciatica and strain of lumbar region Medical Records I reviewed the patient's medical records. Labs Radiology Impressions Lumbar Spine X-Ray 05/08/24 09:57 IMPRESSION: 1. No acute fracture or malaligment. 2. Moderate multilevel degenerative change. Hip/Pelvis X-Ray 05/08/24 10:03 IMPRESSION: 1. No acute findings. 2. Mild-moderate right hip osteoarthritis. All radiology interpretation(s) finalized by discharge Discharge Plan Discharge Patient Disposition: Home Clinical Impression: Low back pain Qualifiers: Chronicity: acute Back pain laterality: right Sciatica presence: with sciatica Sciatica laterality: sciatica of right side Qualified Code(s): M54.41 - Lumbago with sciatica, right side Condition: Stable Prescriptions: New methocarbamol 500 mg tablet 1,000 mg PO Q8H Qty: 30 0RF methylprednisolone [Medrol (Ebrtram)] 4 mg tablets,dose pack See Rx Instructions .ROUTE .COMPLEX Qty: 21 0RF Rx Instructions: orally per package directions Continued diclofenac sodium 75 mg tablet,delayed release (DR/EC) 75 mg PO BID Qty: 20 0RF Discontinued cyclobenzaprine 10 mg tablet 10 mg PO TID Qty: 20 0RF No Action dapagliflozin propanediol [Farxiga] 10 mg tablet 10 mg PO DAILY rosuvastatin 5 mg tablet 5 mg PO DAILY insulin glargine [Lantus Solostar U-100 Insulin] 100 unit/mL (3 mL) insulin pen 40 unit SUBCUT DAILY Qty: 15 3RF (DME) Dexcom G7 [employer] Misc See Rx Instructions .Route Qty: 1 0RF Rx Instructions: As directed (DME) Dexcom G7 Sensor Device See Rx Instructions .Route Qty: 1 6RF Rx Instructions: As directed tramadol 50 mg tablet 50 mg PO Q6H PRN (Reason: pain) Qty: 14 0RF metformin 500 mg tablet 500 mg PO BID bupropion HCl 150 mg tablet extended release 24 hr 150 mg PO QAM glipizide 10 mg tablet 10 mg PO BID multivitamin [Multi-Vitamin] Tablet 1 tab PO DAILY buspirone 7.5 mg tablet 1 mg PO BID quetiapine 50 mg tablet See Rx Instructions .ROUTE .COMPLEX Rx Instructions: take 1 -2 tablets by mouth 30 minutes before bedtime apple cider vinegar 300 mg Tablet 300 mg PO DAILY coenzyme Q10 [Co Q-10] 400 mg Capsule 400 mg PO DAILY Discharge Orders: Discharge ED (Routine); Ordered 05/08/24 Ordered By: Leonila Plasencia Referrals: Jules Maier FNP [Primary Care Provider] - Patient Instructions: Acute Low Back Pain (ED), Lumbar Radiculopathy (ED), Sciatica Activity Restrictions/Additional Instructions: As we discussed, follow-up with your primary care provider for further evaluation of your symptoms. You may return to the emergency department for worsening pain, inability or difficulty walking, any color or temperature changes to your leg, trouble urinating or any urine/fecal incontinence, or any other concerns you may have. Coding Level of Care Code ED [employer] for [employer] Vazquez
--- NOTE | 2024-05-08 10:03 | XRR_ITS ---
PROCEDURE INFORMATION: Exam: XR Right Hip Exam date and time: 05/08/2024 10:07 AM Age: 58 years old Clinical indication: Hip pain; Right hip TECHNIQUE: Imaging protocol: Radiologic exam of the right hip. Views: 1 view hip with pelvis when performed. COMPARISON: CT abdomen pelvis w con* [id number] 04/17/2021 9:28 AM FINDINGS: Bones/joints: No acute fracture or malalignment. No worrisome lytic or blastic lesion. No cortical erosion or periosteal reaction. Mild-moderate right hip joint space narrowing and osteophyte formation. Soft tissues: Normal. XR/XR hip RT 2-3V wo/w pel* [id number] IMPRESSION: 1. No acute findings. 2. Mild-moderate right hip osteoarthritis.
[2024-05-08] MEDS: ketorolac 30 mg/mL INJ IM (10:36)
[2024-05-08] MEDS: dexamethasone 10 mg/mL INJ 8 MG IM (10:38)
[2024-05-08] MEDS: orphenadrine 30 mg/mL Inj 2 mL 60 MG IM (10:38)
[2024-05-08 12:05] VITALS: BP 112/91; PULSE 86; RESP 17; O2SAT 98
== END 2024-05-08 12:12 | disposition home or self-care (01) ==
PROVIDERS: Emergency Provider Physician Assistant; PCP Nurse Practitioner
DX: M54.41 Lumbago with sciatica, right side (principal); E11.9 Type 2 diabetes mellitus without complications; Z79.4 Long term (current) use of insulin; Z79.84 Long term (current) use of oral hypoglycemic drugs
CPT/HCPCS: 72100; 73502; 96372; 99284; J1100; J1885; J2360

== ENCOUNTER → 2024-05-25 10:18 | Outpatient (BNVA) | payer MEDICAID, SELFPAY | PROVIDERS: PCP Nurse Practitioner; Visit Provider Internal Medicine Cardiovascular Disease | DX: I49.8 Other specified cardiac arrhythmias (principal); R94.31 Abnormal electrocardiogram [ECG] [EKG]; R07.9 Chest pain, unspecified; R55 Syncope and collapse; R06.09 Other forms of dyspnea; E11.9 Type 2 diabetes mellitus without complications; E78.2 Mixed hyperlipidemia; R00.2 Palpitations | CPT/HCPCS: 93005 ==

== ENCOUNTER → 2024-07-21 12:35 | Outpatient (BNVA) | payer MEDICAID, SELFPAY | PROVIDERS: PCP Nurse Practitioner; Visit Provider Internal Medicine | DX: E78.2 Mixed hyperlipidemia (principal); E11.9 Type 2 diabetes mellitus without complications | CPT/HCPCS: 36415; 80053; 80061; 82044; 83036 ==

== ENCOUNTER → 2024-12-13 09:25 | Outpatient (BNVA) | payer MEDICAID, SELFPAY | PROVIDERS: PCP Nurse Practitioner; Visit Provider Internal Medicine | DX: H54.7 Unspecified visual loss (principal); E78.2 Mixed hyperlipidemia; E11.9 Type 2 diabetes mellitus without complications | CPT/HCPCS: 36415; 80053; 80061; 82044; 83036; 83721 ==